=== PATIENT | female | born 1970 | race Caucasian/White ===

== ENCOUNTER 2016-12-25 19:46 | Emergency (ER) | payer BC ==
[2016-12-25 20:04] VITALS: BP 120/89
[2016-12-25] MEDS ORDERED: Orphenadrine 100 MG Tab.ER PO STA (20:27)
--- NOTE | 2016-12-25 20:30 | EDM.PDOC ---
ED HPI LOWER BACK PAIN/INJURY - General Chief Complaint: Back Pain or Injury Stated Complaint: LOWER BACK PAIN Time Seen by Provider: 12/25/16 20:00 Source of Information: Reports: Patient, RN notes reviewed History Limitations: Reports: No limitations - History of Present Illness INITIAL COMMENTS - FREE TEXT/NARRATIVE: The patient states that she developed lower back pain that radiates to her right buttock and down the lateral aspect of her right thigh, curving around to the anterior right thigh to her knee 3 or 4 days ago. She denies having any injury, but states that she has recently been traveling, and may have been sleeping on a bad bed. She states that she has some [place] left over from ACDF surgery 11/05/2016. The patient reports prior similar symptoms. She states a previous MRI showed that her "back is deteriorating". She is under the care of the Neurosurgeon who performed the ACDF, but she does not know if she requires a lower back surgery, as well. Reviewing the medical records, I see that the patient has been here numerous times in the past for similar complaints. Review of the [place] PMPi finds that the patient has had 67 prescriptions for controlled substances by 19 prescribers since 05/09/2014. Since her ACDF on 11/05/2016, she has received 670 tablets of [place], most recently prescribed 40 tablets 4 days ago, 12/21/2016. The [place] PMP[place] indicates that this was a 7 day supply, which therefore should have lasted her through 12/28/2016. - Related Data Allergies/ADRs: Allergies Allergy/AdvReac Type Severity Reaction Status Date / Time No Known Allergies Allergy Verified 12/25/16 20:05 Home Meds: Home Meds Lisinopril/Hydrochlorothiazide [Lisinopril-Hctz 10-12.5 mg Tab] 10 - 12.5 mg PO DAILY 06/06/16 [History] Flexirle 10 mg PO DAILY 12/25/16 [History] Omprezole 20 mg PO DAILY 12/25/16 [History] Orphenadrine [Norflex] 1 tab PO Q12H #20 tab.er 12/25/16 [Rx] Past Medical History Cardiovascular History: Reports: Hypertension Gastrointestinal History: Reports: GERD Musculoskeletal History: Reports: Back pain, chronic, Other (see below) ( Cervical disc disease) Neurological History: Reports: Headaches, chronic Endocrine/Metabolic History: Reports: Obesity/BMI 30+ - Past Surgical History HEENT Surgical History: Reports: Tonsillectomy GI Surgical History: Reports: Appendectomy, Cholecystectomy Other GI Surgeries/Procedures: "tummy tuck" Female Surgical History: Reports: Hysterectomy Musculoskeletal Surgical History: Reports: Arthroscopic knee, Arthroscopic procedure Other Musculoskeletal Surgeries/Procedures:: 3 SURGERIES ON RIGHT ANKLE Social & Family History - Tobacco Use Smoking Status *Q: Never Smoker Second Hand Smoke Exposure: No - Caffeine Use Caffeine Use: Reports: Soda Other Caffeine Use: mountain dew 3 cans daily - Alcohol Use Alcohol Use History: Yes Days Per Week of Alcohol Use: 0 Alcohol Use Frequency: Rarely - Recreational Drug Use Recreational Drug Use: No - Living Situation & Occupation Living situation: Reports: , with family (Daughter + granddaughter) 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[employer]) ED ROS GENERAL - Review of Systems Review Of Systems: See Below Constitutional: Reports: no symptoms HEENT: Reports: No symptoms Respiratory: Reports: No Symptoms Cardiovascular: Reports: No symptoms Endocrine: Reports: no symptoms GI/Abdominal: Reports: No symptoms : Reports: no symptoms Musculoskeletal: Reports: back pain (as per the HPI) Skin: Reports: no symptoms Neurological: Reports: No Symptoms Psychiatric: Reports: No symptoms Hematologic/Lymphatic: Reports: no symptoms Immunologic: Reports: no symptoms ED EXAM,LOWER BACK PAIN/INJURY - Physical Exam Exam: See Below Exam Limited By: No limitations General Appearance: alert, WD/WN, no apparent distress Eye Exam: bilateral eye: EOMI, normal inspection Ears: normal external exam, hearing grossly normal Nose: normal inspection, no blood Throat/Mouth: Normal inspection, Normal lips, Normal voice, No airway compromise Head: atraumatic, normocephalic Neck: normal inspection, full range of motion Respiratory/Chest: no respiratory distress, lungs clear, normal breath sounds, no accessory muscle use Cardiovascular: normal peripheral pulses, regular rate, rhythm, no gallop, no JVD, no murmur, no rub GI/Abdominal: normal bowel sounds, soft, non tender, no organomegaly, no distention, no abnormal bruit, no mass, other (Obese) Back Exam: normal inspection, full range of motion, other (No visible abnormality to the lumbo-sacral spine, such as swelling, erythema, ecchymosis, or abrasion. The patient reports severe tenderness to palpation of the lower lumbar and sacral spinous processes. Less tender to palpation of the paraspinous musculature. The patient also reports tenderness to palpation of the right buttock, lateral right hip, and anterior right thigh. Straight leg raise is negative to 90 on the left, 70 on the right. The patient is able to flex to 45, extend to 0. She is able to tilt to the right to 30, to the left to 30. She is able to twist to the left to 15, to the right to 10. Unilateral knee bend is normal bilaterally.) Extremities: normal inspection, normal range of motion, no pedal edema, normal capillary refill Neurological: alert, normal gait, no motor/sensory deficits, oriented x 3 Psychiatric: normal affect Skin Exam: Warm, Dry, Intact, Normal color, No rash Lymphatic: no adenopathy Course - Vital Signs Last Recorded V/S: Last Vital Signs Temp 36.8 C 12/25/16 20:02 Pulse 92 12/25/16 20:02 Resp 20 12/25/16 20:02 BP 120/89 12/25/16 20:02 Pulse Ox 100 12/25/16 20:02 - Orders/Labs/Meds Meds: Medications Discontinued Medications Generic Name Dose Route Start Last Admin Trade Name Freq PRN Reason Stop Dose Admin Orphenadrine Citrate 100 mg 12/25/16 20:27 12/25/16 20:33 Norflex PO 12/25/16 20:28 100 mg ONETIME STA Administration - Re-Assessments/Exams Free Text/Narrative Re-Assessment/Exam: 12/25/16 20:27 The patient presents with a complaint of lower back pain radiating to her right knee, for the past 3 or 4 days. On examination, however, the patient reports tenderness to palpation of the lumbar and sacral spinous processes, which would not be possible unless there were spinous process or ligamentous injury to the lower spine. Further, the patient is reporting tenderness to palpation of her right buttock and right thigh, which would also not be present with radicular pain. She is able to flex to only 45 when standing, but straight leg raise is negative to 70 on the right, which is not concordant. Her examination is therefore consistent with malingering. Further, as discussed above, the patient[place] indicates high frequency of opioid prescriptions, and use in excess of that prescribed. Collectively, it appears the patient is drug seeking. For today's purposes, I will switch the patient from Flexeril to Norflex, however, I am not going to prescribe any opioids. Departure - Departure Time of Disposition: 20:28 Disposition: Home, Self-Care 01 Condition: good Clinical Impression: Low back pain, Drug-seeking behavior Prescriptions: Orphenadrine [Norflex] 1 tab PO Q12H #20 tab.er Instructions: Back Pain, Adult, [id number] Referrals: Faith Rodriguez TOE PUNCHER [Primary Care Provider] - Forms: ED Department Discharge Additional Instructions: You were seen in the emergency room for recurrent low back pain, radiating to your right knee. You have been started on a muscle relaxant Norflex. Take one tablet every 12 hours, as prescribed. If you take Norflex, DO NOT also take Flexeril. Followup with your PCP, Karyn Rodriguez, at the next available appointment. If any other problems, please do not hesitate to return to the ER.
== END 2016-12-25 20:40 | disposition home or self-care (01) ==
LOC: JD.ED 19:46
DX: M54.5 Low back pain (principal); Z76.5 Malingerer [conscious simulation]; I10 Essential (primary) hypertension; K21.9 Gastro-esophageal reflux disease without esophagitis; E66.9 Obesity, unspecified; Z68.30 Body mass index [BMI] 30.0-30.9, adult; Z79.899 Other long term (current) drug therapy
CPT/HCPCS: 99283; A9270

== ENCOUNTER 2017-04-25 15:15 | Emergency (ER) | payer BC ==
[2017-04-25 15:29] VITALS: BP 117/88
--- NOTE | 2017-04-25 15:58 | EDM.PDOC ---
ED HPI GENERAL MEDICAL PROBLEM - General Chief Complaint: Lower Extremity Injury/Pain Stated Complaint: R LEG PAIN,LUMP Time Seen by Provider: 04/25/17 15:29 Source of Information: Reports: Patient History Limitations: Reports: No Limitations - History of Present Illness INITIAL COMMENTS - FREE TEXT/NARRATIVE: The patient presents with right leg pain. This has been getting worse over the past few days. 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 She is on a pain contract in [place]. She has chronic neck and back pain. She called the pain clinic and she was told to come here for help. Onset: Gradual Duration: Day(s): Location: Reports: Lower Extremity, Right (inner thigh) Quality: Reports: Sharp Severity: Severe Improves with: Reports: None Worsens with: Reports: None Associated Symptoms: Reports: Other (back pain) Right Leg Pain Score (Numeric/FACES): 8 - Related Data Allergies Allergy/AdvReac Type Severity Reaction Status Date / Time No Known Allergies Allergy Verified 04/25/17 15:29 Home Meds: Home Meds Lisinopril/Hydrochlorothiazide [Lisinopril-Hctz 10-12.5 mg Tab] 10 - 12.5 mg PO DAILY 06/06/16 [History] Omprezole 20 mg PO DAILY 12/25/16 [History] oxyCODONE HCl/Acetaminophen [Percocet 5-325 mg Tablet] 1 - 2 each PO Q6HR PRN # 15 tablet 04/25/17 [Rx] Past Medical History Cardiovascular History: Reports: Hypertension Respiratory History: Reports: None Gastrointestinal History: Reports: GERD Genitourinary History: Reports: None 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 Musculoskeletal History: Reports: Back Pain, Chronic, Other (See Below) Other Musculoskeletal History: "TUMMY TUCK" 4 YEARS AGO Neurological History: Reports: Headaches, Chronic Psychiatric History: Reports: None Endocrine/Metabolic History: Reports: Obesity/BMI 30+ Oncologic (Cancer) History: Reports: None Dermatologic History: Reports: Other (See Below) Other Dermatologic History: lipoma - Infectious Disease History Infectious Disease History: Reports: None - Past Surgical History HEENT Surgical History: Reports: Tonsillectomy GI Surgical History: Reports: Appendectomy, Cholecystectomy, Other (See Below) Other GI Surgeries/Procedures: "tummy tuck" Female Surgical History: Reports: Hysterectomy Musculoskeletal Surgical History: Reports: Arthroscopic Knee, Arthroscopic Procedure, Other (See Below) Other Musculoskeletal Surgeries/Procedures:: cervical fusion Social & Family History - Tobacco Use Smoking Status *Q: Never Smoker Years of Tobacco use: 20 Packs/Tins Daily: 0.3 Second Hand Smoke Exposure: No - Caffeine Use Caffeine Use: Reports: Soda Other Caffeine Use: mountain dew 3 cans daily - Alcohol Use Days Per Week of Alcohol Use: 0 - Recreational Drug Use Recreational Drug Use: No - Living Situation & Occupation Living situation: Reports: , with Family Occupation: Employed Review of Systems - Review of Systems Review Of Systems: See Below Constitutional: Reports: No Symptoms Eyes: Reports: No Symptoms Ears: Reports: No Symptoms Nose: Reports: No Symptoms Mouth/Throat: Reports: No Symptoms Respiratory: Reports: No Symptoms Cardiovascular: Reports: No Symptoms GI/Abdominal: Reports: No Symptoms Genitourinary: Reports: No Symptoms Musculoskeletal: Reports: Other (Right leg pain) ED EXAM, GENERAL - Physical Exam Exam: See Below Exam Limited By: No Limitations General Appearance: Alert, No Apparent Distress Ears: Normal External Exam Nose: Normal Inspection Head: Atraumatic, Normocephalic Neck: Normal Inspection Respiratory/Chest: No Respiratory Distress, Lungs Clear, Normal Breath Sounds Cardiovascular: Regular Rate, Rhythm, No Edema, No Murmur GI/Abdominal: Soft, Non-Tender, No Organomegaly, No Mass Back Exam: Normal Inspection Extremities: Normal Inspection Neurological: Alert, Oriented, No Motor/Sensory Deficits Course - Vital Signs Last Recorded V/S: Last Vital Signs Temp 96.9 F 04/25/17 15:26 Pulse 92 04/25/17 15:26 Resp 18 04/25/17 15:26 BP 117/88 04/25/17 15:26 Pulse Ox 98 04/25/17 15:26 Departure - Departure Time of Disposition: 16:00 Disposition: Home, Self-Care 01 Condition: Good Clinical Impression: Right leg pain - Discharge Information Prescriptions: oxyCODONE HCl/Acetaminophen [Percocet 5-325 mg Tablet] 1 - 2 each PO Q6HR PRN # 15 tablet PRN Reason: Pain Referrals: Faith Rodriguez SOCIAL INSURANCE ADMINISTRATOR [Primary Care Provider] - Forms: ED Department Discharge Additional Instructions: Take your medications as prescribed. Please return if you are worse.
== END 2017-04-25 16:29 | disposition home or self-care (01) ==
LOC: JD.ED 15:15
DX: M79.604 Pain in right leg (principal); I10 Essential (primary) hypertension; K21.9 Gastro-esophageal reflux disease without esophagitis; E66.9 Obesity, unspecified; Z79.899 Other long term (current) drug therapy; Z98.890 Other specified postprocedural states; Z90.49 Acquired absence of other specified parts of digestive tract; Z90.710 Acquired absence of both cervix and uterus; Z68.30 Body mass index [BMI] 30.0-30.9, adult
CPT/HCPCS: 99283; 99284

== ENCOUNTER 2017-08-28 15:17 | Emergency (ER) | payer BC ==
[2017-08-28 15:41] VITALS: BP 135/101
[2017-08-28] MEDS ORDERED: SUMAtriptan 6 MG/0.5 ML SDV SUBCUT ONE (15:55)
[2017-08-28] MEDS ORDERED: SUMAtriptan 50 MG Tab PO ONE (16:07)
--- NOTE | 2017-08-28 16:07 | EDM.PDOC ---
ED HPI GENERAL MEDICAL PROBLEM - General Chief Complaint: Headache Stated Complaint: HEAD PAIN Time Seen by Provider: 08/28/17 15:43 Source of Information: Reports: Patient History Limitations: Reports: No Limitations - History of Present Illness INITIAL COMMENTS - FREE TEXT/NARRATIVE: Patient is a 47-year-old female with a history of migraines and chronic pain to her neck and back. States she developed a migraine headache yesterday consistent with previous episodes of migraines. Gradual onset, retro-orbital, throbbing sensation, with photophobia. She has tried Tylenol and ibuprofen with minimal relief. States normally she takes Imitrex 100 mg with onset but is out of his medications for the past week. She states the migraines are as a result of chronic neck pain. Patient is under a pain contract with a provider in [place]. She ran out of the oxycodone and OxyContin prescriptions today will not have them refilled until Tuesday. She denies any fever/chills, vision changes, numbness or tingling, difficulty walking, weakness to the upper or lower extremities, sensory deficits, nausea vomiting, chest pain or shortness of breath. She also denies any dysuria. Headache Pain Score (Numeric/FACES): 9 - Related Data Allergies Allergy/AdvReac Type Severity Reaction Status Date / Time latex Allergy Hives Verified 08/28/17 15:36 Home Meds: Home Meds Omprezole 20 mg PO DAILY 12/25/16 [History] oxyCODONE HCl/Acetaminophen [Percocet 5-325 mg Tablet] 1 - 2 each PO Q6HR PRN # 15 tablet 04/25/17 [Rx] Metformin. 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 Musculoskeletal History: Reports: Back Pain, Chronic, Other (See Below) Other Musculoskeletal History: "TUMMY TUCK" 4 YEARS AGO Neurological History: Reports: Headaches, Chronic Psychiatric History: Reports: None Endocrine/Metabolic History: Reports: Obesity/BMI 30+ Oncologic (Cancer) History: Reports: None Dermatologic History: Reports: Other (See Below) Other Dermatologic History: lipoma - Infectious Disease History Infectious Disease History: Reports: None - Past Surgical History HEENT Surgical History: Reports: Tonsillectomy GI Surgical History: Reports: Appendectomy, Cholecystectomy, Other (See Below) Other GI Surgeries/Procedures: "tummy tuck" Female Surgical History: Reports: Hysterectomy Musculoskeletal Surgical History: Reports: Arthroscopic Knee, Arthroscopic Procedure, Other (See Below) Other Musculoskeletal Surgeries/Procedures:: cervical fusion Social & Family History - Tobacco Use Smoking Status *Q: Never Smoker Years of Tobacco use: 20 Packs/Tins Daily: 0.3 Second Hand Smoke Exposure: No - Caffeine Use Caffeine Use: Reports: Soda Other Caffeine Use: mountain dew 3 cans daily - Alcohol Use Days Per Week of Alcohol Use: 0 - Recreational Drug Use Recreational Drug Use: No - Living Situation & Occupation Living situation: Reports: , with Family Occupation: Employed ED ROS GENERAL - Review of Systems Review Of Systems: See Below Constitutional: Denies: Fever, Chills, Decreased Appetite HEENT: Denies: Vision Change Respiratory: Reports: No Symptoms Cardiovascular: Reports: No Symptoms GI/Abdominal: Reports: No Symptoms Musculoskeletal: Reports: Neck Pain (Chronic unchanged), Back Pain (Chronic unchanged) Neurological: Reports: Headache. Denies: Dizziness, Numbness, Tingling, Difficulty Walking, Weakness - Physical Exam Exam: See Below Exam Limited By: No Limitations General Appearance: Alert, WD/WN, No Apparent Distress (She is sitting in a dark room.) Eye Exam: Bilateral Eye: EOMI, PERRL Ears: Hearing Grossly Normal Nose: Normal Inspection Throat/Mouth: Normal Inspection, Normal Oropharynx, Normal Voice, No Airway Compromise Head Exam: Atraumatic, Normocephalic Neck: Normal Inspection, Supple, Non-Tender (With palpation), Full Range of Motion. No: Lymphadenopathy (L), Lymphadenopathy (R) Respiratory/Chest: No Respiratory Distress, Lungs Clear, Normal Breath Sounds, No Accessory Muscle Use, Chest Non-Tender Cardiovascular: Normal Peripheral Pulses, Regular Rate, Rhythm Neuro Exam (Abbreviated): Alert, Oriented, CN II-XII Intact, Normal Cognition, No Motor/Sensory Deficits, Other (Cerebellar function intact: Finger-nose, rapid alternating movements, no sensory/motor deficits. No pronator drift, facial droop, slurred speech, or any concerning findings.) Psychiatric: Normal Affect, Normal Mood Skin Exam: Warm, Dry, Intact, Normal Color, No Rash Course - Vital Signs Last Recorded V/S: Last Vital Signs Temp 97.2 F 08/28/17 15:38 Pulse 81 08/28/17 15:38 Resp BP 135/101 H 08/28/17 15:38 Pulse Ox 98 08/28/17 15:38 - Orders/Labs/Meds Meds: Medications Discontinued Medications Generic Name Dose Route Start Last Admin Trade Name Freq PRN Reason Stop Dose Admin Sumatriptan Succinate 6 mg 08/28/17 15:55 08/28/17 16:23 Imitrex SUBCUT 08/28/17 15:56 Not Given ONETIME ONE Sumatriptan Succinate 100 mg 08/28/17 16:07 08/28/17 16:23 Imitrex PO 08/28/17 16:08 100 mg ONETIME ONE Administration - Re-Assessments/Exams Free Text/Narrative Re-Assessment/Exam: Ordered Imitrex 6 mg subcutaneous. I did this rather than by mouth form since this should take effect quicker. 08/28/17 16:10 Patient refuses subcutaneous injection. Ordered Imitrex 100 mg by mouth. Per nursing staff headache is better. Will discharge home. Departure - Departure Time of Disposition: 16:51 Disposition: Home, Self-Care 01 Condition: Good Clinical Impression: Migraine - Discharge Information Prescriptions: SUMAtriptan Succinate [Imitrex] 100 mg PO ASDIRECTED PRN #15 tablet PRN Reason: Headache Instructions: Migraine Headache, [id number] Referrals: Faith Rodriguez NP [Primary Care Provider] - Forms: ED Department Discharge Additional Instructions: Take the Imitrex as prescribed. Push the fluids. Suggest utilizing warm compresses or ice the back her neck or head to alleviate some of the discomfort. Follow-up with your primary care provider as needed for reevaluation and further pain management. Return to ED if he developed fever, vision changes, rash, chest pain, focal neurological deficits, seizures, worsening headache, or any additional complaints.
== END 2017-08-28 17:15 | disposition home or self-care (01) ==
LOC: JD.ED 15:17
DX: G43.909 Migraine, unspecified, not intractable, without status migrainosus (principal); I10 Essential (primary) hypertension; Z91.040 Latex allergy status; Z79.899 Other long term (current) drug therapy; Z79.84 Long term (current) use of oral hypoglycemic drugs
CPT/HCPCS: 99284; A9270; 99283

== ENCOUNTER 2017-12-03 18:12 | Emergency (ER) | payer BC ==
[2017-12-03 18:42] VITALS: BP 128/103
[2017-12-03] MEDS ORDERED: Ketorolac 60 MG/2 ML SDV IM ONE (19:02)
--- NOTE | 2017-12-03 19:08 | EDM.PDOC ---
ED HPI GENERAL MEDICAL PROBLEM - General Chief Complaint: Back Pain or Injury Stated Complaint: NECK AND BACK PAIN Time Seen by Provider: 12/03/17 18:50 Source of Information: Reports: Patient, Old Records History Limitations: Reports: No Limitations - History of Present Illness INITIAL COMMENTS - FREE TEXT/NARRATIVE: The patient states that she has chronic back issues, including degenerative disc disease and cysts on her back, for years. She states that she is under the care of Karyn Rodriguez, who prescribes for her Percocet 10/325, one tablet every 4 hours. She states that she ran out of her Percocet yesterday, 12/02/2017 , and was due to pickup a refill prescription at the [facility] location yesterday, but that she forgot, leaving her without a prescription until 12/05/2017. She is requesting pain relief until then. While the patient has chronic back issues, she denies any recent injury. She denies any recent illnesses, including nausea, vomiting, constipation, diarrhea , abdominal pain, recent weight gain or weight loss, bloody bowel movements, black bowel movements, joint aches, headaches, rashes, or urinary issues. Lower Back Pain Score (Numeric/FACES): 9 - Related Data Allergies Allergy/AdvReac Type Severity Reaction Status Date / Time latex Allergy Hives Verified 08/28/17 15:36 Home Meds: Home Meds Omprezole 20 mg PO DAILY 12/25/16 [History] Metformin. 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: Psychiatric History: Reports: Addiction (Opioids) - Past Surgical History HEENT Surgical History: Reports: Tonsillectomy GI Surgical History: Reports: Appendectomy, Cholecystectomy, Other (See Below) ( Abdominoplasty) Female Surgical History: Reports: Section (x 1), Hysterectomy, Salpingo-Oophorectomy Neurological Surgical History: Reports: C-Spine (ACDF) Musculoskeletal Surgical History: Reports: Arthroscopic Knee (right), Other ( See Below) (Right ankle repair x 3) Social & Family History - Tobacco Use Smoking Status *Q: Former Smoker Years of Tobacco use: 20 Packs/Tins Daily: 0.3 Second Hand Smoke Exposure: No - Caffeine Use Caffeine Use: Reports: Soda Other Caffeine Use: mountain dew 3 cans daily - Alcohol Use Alcohol Use History: No Days Per Week of Alcohol Use: 0 - Recreational Drug Use Recreational Drug Use: Yes Drug Use in Last 12 Months: Yes Recreational Drug Type: Reports: Other (see below) (Prescription opioids) - Living Situation & Occupation Living situation: Reports: , with Family Occupation: Unemployed ED ROS GENERAL - Review of Systems Review Of Systems: ROS reveals no pertinent complaints other than HPI. ED EXAM,LOWER BACK PAIN/INJURY - Physical Exam Exam: See Below Exam Limited By: No Limitations General Appearance: Alert, WD/WN, No Apparent Distress Eye Exam: Bilateral Eye: Normal Inspection Ears: Normal External Exam, Hearing Grossly Normal Nose: Normal Inspection, No Blood Throat/Mouth: Normal Inspection, Normal Lips, Normal Voice, No Airway Compromise Head: Atraumatic, Normocephalic Neck: Normal Inspection, Full Range of Motion Respiratory/Chest: No Respiratory Distress, Lungs Clear, Normal Breath Sounds, No Accessory Muscle Use Cardiovascular: Normal Peripheral Pulses, Regular Rate, Rhythm, No Gallop, No JVD, No Murmur, No Rub GI/Abdominal: Normal Bowel Sounds, Soft, Non-Tender, No Organomegaly, No Distention, No Abnormal Bruit, No Mass (Female) Exam: Deferred Rectal (Female) Exam: Deferred Back Exam: Normal Inspection Extremities: Normal Inspection, Normal Range of Motion, Normal Capillary Refill Neurological: Alert, No Motor/Sensory Deficits, Oriented x 3 Psychiatric: Flat Affect Skin Exam: Warm, Dry, Intact, Normal Color, No Rash Course - Vital Signs Last Recorded V/S: Last Vital Signs Temp 36.1 C 12/03/17 18:39 Pulse 98 12/03/17 18:39 Resp 20 12/03/17 18:39 BP 128/103 H 12/03/17 18:39 Pulse Ox 100 12/03/17 18:39 - Orders/Labs/Meds Meds: Medications Discontinued Medications Generic Name Dose Route Start Last Admin Trade Name Demetra PRN Reason Stop Dose Admin Ketorolac Tromethamine 60 mg 12/03/17 19:02 12/03/17 19:12 Toradol IM 12/03/17 19:03 60 mg ONETIME ONE Administration - Re-Assessments/Exams Free Text/Narrative Re-Assessment/Exam: 12/03/17 19:03 The patient states that she ran out of her Percocet yesterday, 12/02/2017, and is requesting pain management until she can refill her prescription on Tuesday, . I explained that the emergency department does not refill medications in general, and, in particular, does not manage chronic pain. I offered the patient Tylenol, ibuprofen, or an injection of Toradol, but explained that we cannot give opioids. The patient accepted an injection of Toradol. Review of the [place] PMPi finds that the patient has 110 prescriptions for controlled substances, the vast majority of which have been for OxyContin or Percocet, by 22 prescribers, filled at 7 pharmacies. In particular, her last prescription for Percocet was filled on 11/21/2017, 84 tablets, intended to last her 14 days, through 12/05/2017, but that she also filled a prescription 2 days later, on 11/23/2017, for OxyContin 15 mg, 56 tablets, a 28 day prescription intended to last her through 12/21/2017. Both of these prescriptions , indeed, all prescriptions for opioids written since 01/25/2017, were written by RONALDO Murillo, from [place]. 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 I returned to the patient's room to confront her about this. The patient then changed her story, stating that she did not suggest that it was Karyn Rodriguez who had prescribed her Percocet. The problem is that her initial story was witnessed not only by myself, but also by Rhona HARRELL and Marissa HARRELL, who were both present in the room when I originally interviewed the patient. The patient stated that, yes, she had been prescribed Percocet by Ms. Felton, and that was the prescription ran of 12/02/2017. As above, it should have run out 12/05/2017, indicating that she took her Percocet in excess of that which was prescribed. She acknowledged that she had been prescribed OxyContin, but stated that it did not agree with her. I suspect that the patient ran out of her Percocet early, and that she cannot get a refill until 12/05/2017. I believe she is lying when she stated that she could have refilled the prescription on Tuesday - even if she had forgotten on Tuesday, the pharmacy was open from 8 AM until 1 PM today. It is possible that the patient does not like OxyContin, although I see that she has been prescribed it in the past. Nevertheless, if the patient is under the care of pain management, she is not permitted to go to the ED for additional pain medications. Clearly, the patient is drug-seeking. I strongly recommended that she seek professional help, and I will refer her to the Substance Abuse and Mental [facility] Services Administration ([facility]), who can help her find a substance abuse counselor. Departure - Departure Time of Disposition: 19:05 Disposition: Home, Self-Care 01 Condition: Good Clinical Impression: Drug-seeking behavior - Discharge Information Referrals: Faith Rodriguez BI ARCHITECT [Primary Care Provider] - Forms: ED Department Discharge Additional Instructions: You were seen in the emergency room requesting pain medication after running out of your Percocet yesterday. Review of the controlled substances databank finds that you had a prescription for 56 OxyContin, a 28 day supply, filled just 10 days ago, on 11/23/2017, and 84 tablets of Percocet 10/325 filled just 2 days prior to that, on 11/21/2017. As discussed, we are very concerned about your opioid usage, and recommend that you seek professional help. Call the Substance Abuse and Mental Health Services Administration ([facility]) at [phone] ([phone]). If any other problems, please do not hesitate to return to the ER.
== END 2017-12-03 19:33 | disposition home or self-care (01) ==
LOC: JD.ED 18:12
DX: Z76.5 Malingerer [conscious simulation] (principal); M54.5 Low back pain; G89.29 Other chronic pain; I10 Essential (primary) hypertension; K21.9 Gastro-esophageal reflux disease without esophagitis; Z91.040 Latex allergy status; Z79.84 Long term (current) use of oral hypoglycemic drugs; Z79.899 Other long term (current) drug therapy; Z90.49 Acquired absence of other specified parts of digestive tract; Z87.891 Personal history of nicotine dependence
CPT/HCPCS: 96372; 99283; J1885

== ENCOUNTER 2019-02-04 20:32 | Emergency (ER) | payer OTHER ==
[2019-02-04 20:44] VITALS: BP 149/119
[2019-02-04] MEDS ORDERED: Ketorolac 60 MG/2 ML SDV IM ONE (21:18)
--- NOTE | 2019-02-04 21:41 | EDM.PDOC ---
ED HPI GENERAL MEDICAL PROBLEM - General Chief Complaint: Back Pain or Injury Stated Complaint: FELL ON BACK AND NECK IN PAIN Time Seen by Provider: 02/04/19 21:00 Source of Information: Reports: Patient History Limitations: Reports: No Limitations - History of Present Illness INITIAL COMMENTS - FREE TEXT/NARRATIVE: 49-year-old female presents for evaluation and treatment of low back and neck pain. Patient reports that she fell on Tuesday. She states that she was helping her parents move and was carrying boxes. She states she was walking up one step when she fell backwards and landed on buttocks. Since then she has been experiencing pain in the lower back as well as her neck. she denies any numbness or tingling in the legs. She states that she is having some tingling in her bilateral hands but this has been going on for quite some time prior to the fall. No urinary or stool incontinence. She has a history of chronic pain to her low back and neck. Previously in pain management for this, but has not been in pain management since August. States that she was living in [place] but just relocated back to [place] few weeks ago. She has a history of surgery to her neck, fusion of C5 and C6. 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: Other CINNAMON GRINDER History: X 1 Musculoskeletal History: Reports: Back Pain, Chronic Other Musculoskeletal History: "TUMMY TUCK" 4 YEARS AGO Neurological History: Reports: Headaches, Chronic Psychiatric History: Reports: Addiction Endocrine/Metabolic History: Reports: Obesity/BMI 30+ Oncologic (Cancer) History: Reports: None Dermatologic History: Reports: Other (See Below) Other Dermatologic History: lipoma - Infectious Disease History Infectious Disease History: Reports: None - Past Surgical History HEENT Surgical History: Reports: Tonsillectomy GI Surgical History: Reports: Appendectomy, Cholecystectomy, Other (See Below) Female Surgical History: Reports: Section, Hysterectomy, Salpingo- Oophorectomy Neurological Surgical History: Reports: C-Spine Musculoskeletal Surgical History: Reports: Arthroscopic Knee, Other (See Below) Social & Family History - Tobacco Use Smoking Status *Q: Never Smoker - Caffeine Use Caffeine Use: Reports: Coffee Other Caffeine Use: mountain dew 3 cans daily - Recreational Drug Use Recreational Drug Use: No - Living Situation & Occupation Living situation: Reports: , with Family Occupation: Unemployed ED ROS GENERAL - Review of Systems Review Of Systems: See Below : Denies: Incontinence Musculoskeletal: Reports: Neck Pain, Back Pain (low back ) Neurological: Denies: Numbness (bilateral hands, chronic), Tingling (bilateral hands, chronic) ED EXAM,LOWER BACK PAIN/INJURY - Physical Exam Exam: See Below Exam Limited By: No Limitations General Appearance: Alert, WD/WN, No Apparent Distress Respiratory/Chest: No Respiratory Distress, Lungs Clear, Normal Breath Sounds Cardiovascular: Normal Peripheral Pulses, Regular Rate, Rhythm, No Murmur Back Exam: Normal Inspection, Paraspinal Tenderness (SI joint and paraspinal mucsles L2-L5), Vertebral Tenderness (L2-5). No: CVA Tenderness (L), CVA Tenderness (R) Extremities: Normal Inspection, Normal Range of Motion Neurological: Alert, Normal Mood/Affect, Normal Dorsiflexion, Normal Plantar Flexion, Normal Gait. No: Straight Leg Raise (L), Straight Leg Raise (R), Difficulty Walking Psychiatric: Normal Affect, Normal Mood Skin Exam: Warm, Dry, Normal Color. No: Ecchymosis, Erythema, Increased Warmth Course - Vital Signs Last Recorded V/S: Last Vital Signs Temp 97.4 F 02/04/19 20:40 Pulse 100 02/04/19 20:40 Resp 18 02/04/19 20:40 BP 149/119 H 02/04/19 20:40 Pulse Ox 100 02/04/19 20:40 - Orders/Labs/Meds Meds: Medications Discontinued Medications Generic Name Dose Route Start Last Admin Trade Name Freq PRN Reason Stop Dose Admin Ketorolac Tromethamine 60 mg 02/04/19 21:18 02/04/19 21:36 Toradol IM 02/04/19 21:19 Not Given ONETIME ONE - Radiology Interpretation Free Text/Narrative:: Xray of the cervical spine shows no acute fractures. hardware in place. No acute injury Xray of the lumbar spine shows some mild degenerative change and endplate spurring. No acute fracture. Formal radiology read pending. - Re-Assessments/Exams Free Text/Narrative Re-Assessment/Exam: 02/04/19 22:00 Patient searched on the [place] drug registry. 106 prescriptions for controlled substances in the last year from 27 different prescribers. This search included [place]. Reviewed the xray results with the patient. Encouraged her tp continue with OTC treatments and may take the tramadol she has at home. Will discharge home at thie time. Discharge instructions as documented. Departure - Departure Time of Disposition: 22:09 Disposition: Home, Self-Care 01 Condition: Fair Clinical Impression: Back pain Fall Qualifiers: Encounter type: initial encounter Qualified Code(s): W19.XXXA - Unspecified fall, initial encounter - Discharge Information *PRESCRIPTION DRUG MONITORING PROGRAM REVIEWED*: No *COPY OF PRESCRIPTION DRUG MONITORING REPORT IN PATIENT DAXA: No Instructions: Acute Back Pain, Adult Referrals: PCP,None [Primary Care Provider] - Forms: ED Department Discharge Additional Instructions: may take [id number] Tylenol, Motrin as needed for pain. Continues ice and heat as needed for additional pain relief. Expect your symptoms last about 1 week. Normally the first 2 days are the worst. If you continue your pain beyond one week follow-up with family medicine. Physician ER if your symptoms change or worsen.
--- NOTE | 2019-02-05 07:27 | CR ---
Cervical spine: AP, lateral and odontoid views of the cervical spine were obtained. Comparison: No prior cervical spine imaging. Previous surgery is noted at C5-C6 and C6-C7 with anterior plate and screws and intact bone graft. Minimal anterior spurring and anterior spurring at C4-C5. Other discs are maintained. Vertebral body heights are maintained. Prevertebral soft tissues are normal. No subluxation or fracture seen. Impression: 1. Previous surgery at C5-C6 and C6-C7. 2. Minimal degenerative spurring at C4-C5. 3. Nothing acute is appreciated. Diagnostic code #2
--- NOTE | 2019-02-05 07:27 | CR ---
Lumbar spine: AP, lateral and coned-down lateral views centered to the lumbosacral junction were obtained. Comparison: No previous lumbar spine study. Mild disc space narrowing is noted at L1-L2. Other disc spaces are maintained. Vertebral body heights are maintained. Scattered endplate osteophytes are seen. Minimal vascular calcification is seen. Pedicles are intact. Visualized transverse and spinous processes are intact. Sacroiliac joints are within normal limits. No subluxation or fracture is seen. Impression: 1. Mild degenerative change as noted above. Nothing acute is appreciated. Diagnostic code #2
== END 2019-02-04 22:26 | disposition home or self-care (01) ==
LOC: JD.ED 20:32
DX: M54.5 Low back pain (principal); M54.2 Cervicalgia; I10 Essential (primary) hypertension; K21.9 Gastro-esophageal reflux disease without esophagitis; Z91.040 Latex allergy status; W18.39XA Other fall on same level, initial encounter
CPT/HCPCS: 72040; 72040-26; 72100; 72100-26; 99283; 99283-25

== ENCOUNTER 2019-03-10 17:10 | Emergency (ER) | payer OTHER ==
[2019-03-10 17:28] VITALS: BP 167/115
[2019-03-10] MEDS ORDERED: Acetaminophen 325 MG Tab PO ONE (17:47)
--- NOTE | 2019-03-10 17:54 | EDM.PDOC ---
ED HPI GENERAL MEDICAL PROBLEM - General Chief Complaint: Lower Extremity Injury/Pain Stated Complaint: RIGHT FOOT/TOE INJURY Time Seen by Provider: 03/10/19 17:32 Source of Information: Reports: Patient, RN Notes Reviewed History Limitations: Reports: No Limitations - History of Present Illness INITIAL COMMENTS - FREE TEXT/NARRATIVE: Patient is a 49-year-old female who presents to the ED for evaluation of a right toe/foot injury. The patient states that shortly prior to arrival she was reaching for something in her closet on the top shelf when this very large metal canister fell from the top shelf onto her right great toe joint while she was barefoot. The patient complains of immediate pain to the toe and right foot. She states she is unable to bear much weight on the right foot at all. She did not take any pain medications prior to arrival, nor did she ice this. She states that the pain is a 10 out of 10 today, and this does have some tingling associated into the right foot. She states that the pain is so bad that is making her sick to her stomach. Right Toe-Hailux Pain Score (Numeric/FACES): 10 - Related Data Allergies Allergy/AdvReac Type Severity Reaction Status Date / Time ketorolac [From Toradol] Allergy Headache Verified 03/10/19 17:29 latex Allergy Hives Verified 03/10/19 17:28 tramadol Allergy Headache Verified 03/10/19 17:29 ibuprofen AdvReac Abdominal Verified 03/10/19 17:29 Pain Home Meds: Home Meds Phentermine HCl 37.5 mg PO BID 08/28/17 [History] SUMAtriptan Succinate [Imitrex] 100 mg PO ASDIRECTED PRN #15 tablet 08/28/17 [Rx ] Past Medical History Cardiovascular History: Reports: Hypertension Respiratory History: Reports: None Gastrointestinal History: Reports: GERD Genitourinary History: Reports: None RELATIONS DIRECTOR History: Reports: Other RELATIONS DIRECTOR History: X 1 Musculoskeletal History: Reports: Back Pain, Chronic Other Musculoskeletal History: "TUMMY TUCK" 4 YEARS AGO Neurological History: Reports: Headaches, Chronic Psychiatric History: Reports: Addiction Endocrine/Metabolic History: Reports: Obesity/BMI 30+ Oncologic (Cancer) History: Reports: None Dermatologic History: Reports: Other (See Below) Other Dermatologic History: lipoma - Infectious Disease History Infectious Disease History: Reports: None - Past Surgical History HEENT Surgical History: Reports: Tonsillectomy GI Surgical History: Reports: Appendectomy, Cholecystectomy, Other (See Below) Female Surgical History: Reports: Section, Hysterectomy, Salpingo- Oophorectomy Neurological Surgical History: Reports: C-Spine Musculoskeletal Surgical History: Reports: Arthroscopic Knee, Other (See Below) Social & Family History - Caffeine Use Caffeine Use: Reports: Coffee Other Caffeine Use: mountain dew 3 cans daily - Living Situation & Occupation Living situation: Reports: , with Family Occupation: Unemployed Review of Systems - Review of Systems Review Of Systems: See Below Constitutional: Reports: No Symptoms Eyes: Reports: No Symptoms Ears: Reports: No Symptoms Nose: Reports: No Symptoms Mouth/Throat: Reports: No Symptoms Respiratory: Reports: No Symptoms Cardiovascular: Reports: No Symptoms GI/Abdominal: Reports: No Symptoms Genitourinary: Reports: No Symptoms Musculoskeletal: Reports: Joint Pain (R great toe/foot) Skin: Reports: Bruising (small bruise note to R Great toe joint) Neurological: Reports: No Symptoms Psychiatric: Reports: No Symptoms ED EXAM, GENERAL - Physical Exam Exam: See Below Exam Limited By: No Limitations General Appearance: Alert, WD/WN, No Apparent Distress Respiratory/Chest: No Respiratory Distress, Lungs Clear, Normal Breath Sounds, No Accessory Muscle Use, Chest Non-Tender Cardiovascular: Normal Peripheral Pulses, Regular Rate, Rhythm, No Murmur Extremities: Normal Inspection, Normal Capillary Refill, Limited Range of Motion (of R great toe d/t pain. The patient was barely able to let me touch her toe with very light touch without her experiencing immense pain.) Neurological: Alert, Oriented, Normal Cognition, No Motor/Sensory Deficits Psychiatric: Normal Affect, Normal Mood, Other (pt is being somewhat dramatic and her pain is out of proportion to her exam.) Skin Exam: Warm, Dry, Intact, Normal Color, No Rash Course - Vital Signs Last Recorded V/S: Last Vital Signs Temp 97.8 F 03/10/19 17:25 Pulse 114 H 03/10/19 17:25 Resp 16 03/10/19 17:25 BP 167/115 H 03/10/19 17:25 Pulse Ox 99 03/10/19 17:25 - Orders/Labs/Meds Orders: Active Orders 24 hr Category Date Time Status Foot Comp Min 3V Rt [CR] Stat Exams 03/10/19 17:46 Ordered Meds: Medications Discontinued Medications Generic Name Dose Route Start Last Admin Trade Name Demetra PRN Reason Stop Dose Admin Acetaminophen 650 mg 03/10/19 17:47 03/10/19 18:01 Tylenol PO 03/10/19 17:48 650 mg NOW ONE Administration - Radiology Interpretation Free Text/Narrative:: Vrad did read the patient's foot x-ray, and does not identify any sort of acute fracture in the patient's right foot or right toe. - Re-Assessments/Exams Free Text/Narrative Re-Assessment/Exam: 03/10/19 17:54 Patient resents to the ED for evaluation of a right great toe/foot injury.I have ordered a right foot x-ray as this will be able to image the foot and joint in question. I did order 650 mg PO Tylenol for initial pain relief. Will have the nurse apply an ice pack until x-ray is done and read Departure - Departure Time of Disposition: 18:55 Disposition: Home, Self-Care 01 Condition: Fair Clinical Impression: Toe pain, right - Discharge Information *PRESCRIPTION DRUG MONITORING PROGRAM REVIEWED*: No *COPY OF PRESCRIPTION DRUG MONITORING REPORT IN PATIENT DAXA: No Instructions: Musculoskeletal Pain Referrals: PCP,None [Primary Care Provider] - Forms: ED Department Discharge Additional Instructions: You have been evaluated in the ED for your right toe pain. Your x-ray demonstrated no acute fracture of your right toe or foot. Please use ice as tolerated to the affected area. You may take Tylenol 500 mg or q6 hrs for pain relief. Please do so until you have a tolerable level of pain with activity. Do not exceed 4000mg Tylenol in a 24 hour time period. Please return to ED if your symptoms should change or worsen. - My Orders Last 24 Hours: My Active Orders 03/10/19 17:46 Foot Comp Min 3V Rt [CR] Stat - Assessment/Plan Last 24 Hours: My Active Orders 03/10/19 17:46 Foot Comp Min 3V Rt [CR] Stat
--- NOTE | 2019-03-12 11:07 | CR ---
Right foot: Four views of the right foot were obtained. Comparison: No previous study. Plantar spur is noted. Joint spaces are preserved. No fracture or dislocation is seen. Orthopedic screw is noted within the distal fibular shaft. Bone densities are noted off the lateral malleolus compatible with old injury. Impression: 1. Findings which are believed to be incidental as described above. 2. Nothing acute is appreciated. Diagnostic code #2 I agree with preliminary report from [facility], finalized on 03/11/19, 1:13 AM Central Time
== END 2019-03-10 19:21 | disposition home or self-care (01) ==
LOC: JD.ED 17:10
DX: M79.674 Pain in right toe(s) (principal); I10 Essential (primary) hypertension; Z88.5 Allergy status to narcotic agent; Z88.6 Allergy status to analgesic agent; Z91.040 Latex allergy status; E66.9 Obesity, unspecified; Z98.890 Other specified postprocedural states; Z90.710 Acquired absence of both cervix and uterus; Z90.49 Acquired absence of other specified parts of digestive tract; W20.8XXA Other cause of strike by thrown, projected or falling object, initial encounter
CPT/HCPCS: 73630; 99283; A9270; 99282

== ENCOUNTER 2019-05-31 00:18 | Emergency (ER) | payer SELFPAY ==
[2019-05-31 00:36] VITALS: BP 141/109; PULSE 100
[2019-05-31] MEDS ORDERED: Acetaminophen/oxyCODONE 325-5 MG Tab PO ONE (01:36)
--- NOTE | 2019-05-31 01:40 | EDM.PDOC ---
ED HPI GENERAL MEDICAL PROBLEM - General Chief Complaint: Back Pain or Injury Stated Complaint: TAIL BONE PAIN Time Seen by Provider: 05/31/19 01:25 Source of Information: Reports: Patient History Limitations: Reports: No Limitations - History of Present Illness INITIAL COMMENTS - FREE TEXT/NARRATIVE: 49-year-old female presents the ED for evaluation after slipping and falling at home in the garage landing directly on her buttocks. Injury occurred about 2100 hrs. last night. She states that about 6 weeks ago she slipped and fell and injured her tailbone and was suspected to have a fracture in this area. However she states that it got better fairly promptly as she was able to drive to [place] back in the seated position without discomfort this last week. Currently she has pain over the distal sacrum and at the coccyx-sacral junction. She states she landed hard flat on her but talks and did not fall backwards and hit her head. Chief complaint is pain. At present she doesn't have any medical insurance and does not wish to pursue imaging studies if possible. She states she did take some Tylenol for pain but it did not help and it is throbbing to the point that she couldn't sleep. Onset: Sudden Onset Date: 05/30/19 Onset Time: 21:00 Duration: Hour(s): Location: Reports: Other (Sacrum and coccyx area) Quality: Reports: Ache, Throbbing (Constant deep aching pain.) Severity: Moderate Improves with: Reports: None (710) Worsens with: Reports: Other Context: Reports: Trauma (Tripped and fell flat on her but talks in the garage landing on concrete.). Denies: Activity, Exercise, Lifting, Sick Contact Associated Symptoms: Reports: No Other Symptoms. Denies: Confusion, Chest Pain , Cough, cough w sputum, Fever/Chills, Headaches, Loss of Appetite, Malaise, Rash, Shortness of Breath, Syncope Treatments EPIDEMIOLOGIST: Reports: Acetaminophen Buttock Pain Score (Numeric/FACES): 8 - Related Data Allergies Allergy/AdvReac Type Severity Reaction Status Date / Time ketorolac [From Toradol] Allergy Headache Verified 05/31/19 00:32 latex Allergy Hives Verified 05/31/19 00:32 tramadol Allergy Headache Verified 05/31/19 00:32 ibuprofen AdvReac Abdominal Verified 05/31/19 00:32 Pain Home Meds: Home Meds SUMAtriptan Succinate [Imitrex] 100 mg PO ASDIRECTED PRN #15 tablet 08/28/17 [Rx ] Omeprazole 20 mg PO DAILY 04/14/19 [History] Triamterene/Hydrochlorothiazid [Triamterene-HCTZ 37.5-25 MG] 1 tab PO DAILY [History] oxyCODONE HCl/Acetaminophen [Percocet 5-325 mg Tablet] 1 - 2 each PO Q4H PRN # 20 tablet 05/31/19 [Rx] Past Medical History Cardiovascular History: Reports: Hypertension Respiratory History: Reports: None Gastrointestinal History: Reports: GERD Genitourinary History: Reports: None RN PATIENT CARE History: Reports: Other RN PATIENT CARE History: X 1 Musculoskeletal History: Reports: Back Pain, Chronic, Fracture Other Musculoskeletal History: "TUMMY TUCK" 4 YEARS AGO Neurological History: Reports: Headaches, Chronic Psychiatric History: Reports: Addiction Endocrine/Metabolic History: Reports: Obesity/BMI 30+ Oncologic (Cancer) History: Reports: None Dermatologic History: Reports: Other (See Below) Other Dermatologic History: lipoma - Infectious Disease History Infectious Disease History: Reports: None - Past Surgical History HEENT Surgical History: Reports: Tonsillectomy GI Surgical History: Reports: Appendectomy, Cholecystectomy, Other (See Below) Female Surgical History: Reports: Section, Hysterectomy, Salpingo- Oophorectomy Neurological Surgical History: Reports: C-Spine Musculoskeletal Surgical History: Reports: Arthroscopic Knee, Other (See Below) Social & Family History - Family History Family Medical History: Noncontributory - Tobacco Use Smoking Status *Q: Never Smoker - Caffeine Use Caffeine Use: Reports: Coffee Other Caffeine Use: mountain dew 3 cans daily - Recreational Drug Use Recreational Drug Use: No - Living Situation & Occupation Living situation: Reports: , with Family Occupation: Unemployed ED ROS GENERAL - Review of Systems Review Of Systems: See Below Constitutional: Reports: Decreased Appetite (Did she's quite anxious as her daughter's getting this weekend.). Denies: Fever, Chills, Malaise, Weakness, Fatigue, Weight Loss HEENT: Reports: No Symptoms Respiratory: Reports: No Symptoms Cardiovascular: Reports: No Symptoms Endocrine: Reports: Fatigue GI/Abdominal: Reports: Abdominal Pain (Intermittent problems with abdominal pain ), Constipation (Occasional constipation) : Reports: Frequency Musculoskeletal: Reports: Neck Pain (Has had neck fusion.), Back Pain Neurological: Reports: Numbness, Tingling (In both lower extremities also both upper extremities. She's had bilateral carpal tunnel surgery.), Gait Disturbance (He feels she loses her balance wheeze or than she should.) Psychiatric: Reports: Anxiety Hematologic/Lymphatic: Reports: No Symptoms Immunologic: Reports: No Symptoms ED EXAM,LOWER BACK PAIN/INJURY - Physical Exam Exam: See Below Exam Limited By: No Limitations General Appearance: Alert, WD/WN, No Apparent Distress Head: Atraumatic, Normocephalic Neck: Limited Range of Motion, Other (Well-healed midline cervical scar. She has had cervical fusion through an anterior approach.) Respiratory/Chest: No Respiratory Distress, Lungs Clear, Normal Breath Sounds, No Accessory Muscle Use Cardiovascular: Normal Peripheral Pulses, Regular Rate, Rhythm, No Edema, No Murmur, Tachycardia GI/Abdominal: Normal Bowel Sounds (100/m.), Soft, Non-Tender, No Organomegaly, No Abnormal Bruit, Pelvis Stable Back Exam: Decreased Range of Motion, Vertebral Tenderness (L4-L5 facet joints bilaterally.), Other (Illness over the cost 6 in the sacrum at the junction and the distal portion of the sacrum. No midline shift. Mild tenderness at L4-L5 facet joints bilaterally.) Extremities: Normal Inspection, Normal Range of Motion, Non-Tender, Other (No significant injuries to the hands wrists noted.) Neurological: Alert, Normal Mood/Affect, Normal Dorsiflexion, CN II-XII Intact, Oriented x 3. No: Normal Gait Psychiatric: Normal Affect, Normal Mood Skin Exam: Warm, Dry, Intact, Normal Color, No Rash Course - Vital Signs Last Recorded V/S: Last Vital Signs Temp 36.8 C 05/31/19 00:34 Pulse 100 05/31/19 00:34 Resp 17 05/31/19 00:34 BP 141/109 H 05/31/19 00:34 Pulse Ox 99 05/31/19 00:34 - Orders/Labs/Meds Meds: Medications Discontinued Medications Generic Name Dose Route Start Last Admin Trade Name Freq PRN Reason Stop Dose Admin Oxycodone/Acetaminophen 2 tab 05/31/19 01:36 05/31/19 01:47 Percocet 325-5 Mg PO 05/31/19 01:37 2 tab ONETIME ONE Administration - Radiology Interpretation Free Text/Narrative:: 49-year-old female presents the ED for evaluation of injuries to her sacrum and tailbone area after slipping and falling in the garage on her but talks. No directly onto her but talks landing on her tailbone area. She states she fell about 6-8 weeks ago and was diagnosed with a fracture of the sacrum. He states it got better fairly promptly and she was able to sit and drive to [facility] without she states she feels she reinjured the same area. At present she doesn't have any medical insurance and is not keen on having imaging studies due to the financial constraints. Examination reveals tenderness throughout the distal sacrum and junction of the coccyx with the sacrum. Appears to be normal midline shift of the coccyx. Given is therefore conservative with a donut pad which she already has at home. Percocet tabs 5/3/25 milligrams 2 given in the ED. She will be discharged with the same medication be used on appear basis every 4-6 hours when necessary. Departure - Departure Time of Disposition: 01:37 Disposition: Home, Self-Care 01 Condition: Fair Clinical Impression: Contusion of sacral region Qualifiers: Encounter type: initial encounter Qualified Code(s): S30.0XXA - Contusion of lower back and pelvis, initial encounter - Discharge Information *PRESCRIPTION DRUG MONITORING PROGRAM REVIEWED*: Not Applicable *COPY OF PRESCRIPTION DRUG MONITORING REPORT IN PATIENT DAXA: Not Applicable Prescriptions: oxyCODONE HCl/Acetaminophen [Percocet 5-325 mg Tablet] 1 - 2 each PO Q4H PRN # 20 tablet PRN Reason: pain relief. Instructions: Tailbone Injury, [id number] Referrals: Christina Ding MD [Primary Care Provider] - Forms: ED Department Discharge Additional Instructions: Evaluation in the emergency room tonight in regards to injuries sustained from a fall at home in the garage .Loss of balance seemed to be the cause of the fall. He landed hard on your but talks with injury to the sacrum and coccyx area clinically. All 6 weeks ago injured the same area but she seemed to be gradually getting better. Due to limited finances imaging will not be done tonight. Even is conservative with time to heal. A contusion or bone bruise would be better over a period of 14-20 days. Actually in this area would take 3 months to heal. Suggest treatment with pain medication Percocet 5/325 mg one or 2 every 4-6 hours needed for pain relief. Should take a stool softer daily to prevent constipation from the pain medications. Follow-up with personal care physician if not markedly improved in 10-14 days.
== END 2019-05-31 01:51 | disposition home or self-care (01) ==
LOC: JD.ED 00:18
DX: S30.0XXA Contusion of lower back and pelvis, initial encounter (principal); I10 Essential (primary) hypertension; K21.9 Gastro-esophageal reflux disease without esophagitis; E66.9 Obesity, unspecified; Z68.28 Body mass index [BMI] 28.0-28.9, adult; Z91.041 Radiographic dye allergy status; Z88.8 Allergy status to other drugs, medicaments and biological substances; Z79.899 Other long term (current) drug therapy; W01.0XXA Fall on same level from slipping, tripping and stumbling without subsequent striking against object, initial encounter
CPT/HCPCS: 99283; A9270

== ENCOUNTER 2019-07-01 13:18 | Emergency (ER) | payer SELFPAY ==
[2019-07-01 13:28] VITALS: BP 126/89; PULSE 88
[2019-07-01] MEDS ORDERED: HYDROmorphone 1 MG/ML Syringe IM ONE (14:13)
--- NOTE | 2019-07-01 16:33 | EDM.PDOC ---
ED HPI GENERAL MEDICAL PROBLEM - General Chief Complaint: Syncope Stated Complaint: DIZZY Time Seen by Provider: 07/01/19 13:28 Source of Information: Reports: Patient History Limitations: Reports: No Limitations - History of Present Illness INITIAL COMMENTS - FREE TEXT/NARRATIVE: The patient presents with dizziness and syncope. This has been going on for a few weeks. She did fall and hurt her back with one of these episodes. She has more pain to the left lower back. She has no fever, chills, cough, chest pain or shortness of breath. She has no abdominal pain, nausea or vomiting. Onset: Gradual Duration: Week(s): Location: Reports: Back Quality: Reports: Sharp Severity: Moderate Improves with: Reports: None Worsens with: Reports: None Associated Symptoms: Reports: No Other Symptoms Lower Back Pain Score (Numeric/FACES): 10 - Related Data Allergies Allergy/AdvReac Type Severity Reaction Status Date / Time ketorolac [From Toradol] Allergy Headache Verified 07/01/19 14:22 latex Allergy Rash Verified 07/01/19 14:22 Home Meds: Home Meds SUMAtriptan Succinate [Imitrex] 100 mg PO ASDIRECTED PRN #15 tablet 08/28/17 [Rx ] Omeprazole 20 mg PO DAILY 04/14/19 [History] Lisinopril [Prinivil] 5 mg PO DAILY 07/01/19 [History] Orphenadrine [Norflex] 100 mg PO BID 07/01/19 [History] traZODone HCl [Trazodone HCl] 100 mg PO BEDTIME 07/01/19 [History] Past Medical History Cardiovascular History: Reports: Hypertension Respiratory History: Reports: None Gastrointestinal History: Reports: GERD Genitourinary History: Reports: None IT SERVICE MANAGER History: Reports: Other IT SERVICE MANAGER History: X 1 Musculoskeletal History: Reports: Back Pain, Chronic, Fracture Other Musculoskeletal History: "TUMMY TUCK" 4 YEARS AGO Neurological History: Reports: Headaches, Chronic Psychiatric History: Reports: Addiction Endocrine/Metabolic History: Reports: Obesity/BMI 30+ Oncologic (Cancer) History: Reports: None Dermatologic History: Reports: Other (See Below) Other Dermatologic History: lipoma - Infectious Disease History Infectious Disease History: Reports: None - Past Surgical History HEENT Surgical History: Reports: Tonsillectomy GI Surgical History: Reports: Appendectomy, Cholecystectomy, Other (See Below) Female Surgical History: Reports: Section, Hysterectomy, Salpingo- Oophorectomy Neurological Surgical History: Reports: C-Spine Musculoskeletal Surgical History: Reports: Arthroscopic Knee, Other (See Below) Social & Family History - Family History Family Medical History: Noncontributory - Tobacco Use Smoking Status *Q: Never Smoker - Caffeine Use Caffeine Use: Reports: Tea Other Caffeine Use: mountain dew 3 cans daily - Recreational Drug Use Recreational Drug Use: No - Living Situation & Occupation Living situation: Reports: , with Family Occupation: Unemployed ED ROS GENERAL - Review of Systems Review Of Systems: See Below Constitutional: Reports: No Symptoms HEENT: Reports: No Symptoms Respiratory: Reports: No Symptoms Cardiovascular: Reports: No Symptoms Endocrine: Reports: No Symptoms GI/Abdominal: Reports: No Symptoms : Reports: No Symptoms Musculoskeletal: Reports: Back Pain - Physical Exam Exam: See Below Exam Limited By: No Limitations General Appearance: Alert, No Apparent Distress Ears: Normal External Exam Nose: Normal Inspection Head Exam: Atraumatic, Normocephalic Neck: Normal Inspection Respiratory/Chest: No Respiratory Distress, Lungs Clear, Normal Breath Sounds Cardiovascular: Regular Rate, Rhythm, No Edema, No Murmur GI/Abdominal: Soft, Non-Tender, No Organomegaly, No Mass Neuro Exam (Abbreviated): Alert, Oriented, No Motor/Sensory Deficits Back Exam: Other (Pain upon palpation to the left lower back) EKG INTERPRETATION EKG Date: 07/01/19 Time: 14:41 Rhythm: NSR Rate (Beats/Min): 73 [place]: Normal P-Wave: Present QRS: Normal ST-T: Normal QT: Normal Course - Vital Signs Last Recorded V/S: Last Vital Signs Temp 97.6 F 07/01/19 13:25 Pulse 88 07/01/19 13:25 Resp 20 07/01/19 13:25 BP 126/89 07/01/19 13:25 Pulse Ox 100 07/01/19 13:25 - Orders/Labs/Meds Orders: Active Orders 24 hr Category Date Time Status Cardiac Monitoring [RC] . DIRECTED Care 07/01/19 14:12 Active EKG Documentation Completion [RC] STAT Care 07/01/19 14:12 Active Lumbar Spine 2 or 3V [CR] Stat Exams 07/01/19 14:13 Taken Labs: Laboratory Tests 07/01/19 07/01/19 Range/Units 14:39 14:39 WBC 7.88 (3.98-10.04) K/mm3 RBC 4.88 (3.98-5.22) M/mm3 Hgb 14.4 (11.2-15.7) gm/dl Hct 42.5 (34.1-44.9) % MCV 87.1 (79.4-94.8) fl MCH 29.5 (25.6-32.2) pg MCHC 33.9 (32.2-35.5) g/dl RDW Std Deviation 38.6 (36.4-46.3) fL Plt Count 329 (182-369) K/mm3 MPV 8.5 L (9.4-12.3) fl Neut % (Auto) 57.8 (34.0-71.1) % Lymph % (Auto) 32.6 (19.3-51.7) % [place] % (Auto) 8.5 (4.7-12.5) % Eos % (Auto) 0.5 L (0.7-5.8) Baso % (Auto) 0.3 (0.1-1.2) % Neut # (Auto) 4.56 (1.56-6.13) K/mm3 Lymph # (Auto) 2.57 (1.18-3.74) K/mm3 [place] # (Auto) 0.67 H (0.24-0.36) K/mm3 Eos # (Auto) 0.04 (0.04-0.36) K/mm3 Baso # (Auto) 0.02 (0.01-0.08) K/mm3 Sodium 142 (136-145) mEq/L Potassium 3.7 (3.5-5.1) mEq/L Chloride 106 (98-107) mEq/L Carbon Dioxide 27 (21-32) mEq/L Anion Gap 12.7 (5-15) BUN 16 (7-18) mg/dL Creatinine 0.9 (0.55-1.02) mg/dL Est Cr Clr Drug Dosing 60.46 mL/min Estimated GFR (MDRD) > 60 (>60) mL/min BUN/Creatinine Ratio 17.8 (14-18) Glucose 79 (74-106) mg/dL Calcium 8.7 (8.5-10.1) mg/dL Total Bilirubin 0.5 (0.2-1.0) mg/dL AST 12 L (15-37) U/L ALT 19 (14-59) U/L Alkaline Phosphatase 62 (46-116) U/L Troponin I < 0.017 (0.00-0.056) ng/mL Total Protein 6.7 (6.4-8.2) g/dl Albumin 3.7 (3.4-5.0) g/dl Globulin 3.0 gm/dL Albumin/Globulin Ratio 1.2 (1-2) Meds: Medications Discontinued Medications Generic Name Dose Route Start Last Admin Trade Name Freq PRN Reason Stop Dose Admin Hydromorphone HCl 1 mg 07/01/19 14:13 07/01/19 15:04 Dilaudid IM 07/01/19 14:14 1 mg ONETIME ONE Administration - Re-Assessments/Exams Free Text/Narrative Re-Assessment/Exam: 07/01/19 16:40 I ordered an EKG, labs and an x-ray of her back. Her EKG shows a NSR with no acute changes. Her x-ray shows nothing acute. Her labs look good. I gave her something for pain. I will discharge her home. Departure - Departure Time of Disposition: 16:45 Disposition: Home, Self-Care 01 Condition: Good Clinical Impression: Dizziness Fall Qualifiers: Encounter type: initial encounter Qualified Code(s): W19.XXXA - Unspecified fall, initial encounter Low back pain Qualifiers: Chronicity: acute Back pain laterality: left Sciatica presence: without sciatica Qualified Code(s): M54.5 - Low back pain - Discharge Information *PRESCRIPTION DRUG MONITORING PROGRAM REVIEWED*: No *COPY OF PRESCRIPTION DRUG MONITORING REPORT IN PATIENT DAXA: No Referrals: Teena Ding LPN [Primary Care Provider] - 1 Week Forms: ED Department Discharge Additional Instructions: Drink plenty of fluids. Use ice on your back. Take the pain meds as prescribed. - My Orders Last 24 Hours: My Active Orders 07/01/19 14:12 Cardiac Monitoring [RC] . DIRECTED EKG Documentation Completion [RC] STAT 07/01/19 14:13 Lumbar Spine 2 or 3V [CR] Stat - Assessment/Plan Last 24 Hours: My Active Orders 07/01/19 14:12 Cardiac Monitoring [RC] . DIRECTED EKG Documentation Completion [RC] STAT 07/01/19 14:13 Lumbar Spine 2 or 3V [CR] Stat
--- NOTE | 2019-07-01 16:54 | CR ---
Lumbar spine: AP, lateral and coned-down lateral views centered to the lumbosacral junction were obtained. Comparison: Previous lumbar spine study of 04/14/19. Slight posterior disc space narrowing is noted at L2-3 and L3-4. Mild disc space narrowing is noted at L1-2. Vertebral body heights and disc spaces are otherwise maintained. Minimal spondylolisthesis of L5-S1 is noted most likely due to degenerative apophyseal change. Minimal scoliosis is noted. Pedicles are intact. No fracture or other acute abnormality is seen. Surgical clips are seen from prior cholecystectomy. Mild vascular calcification is noted. Impression: 1. Mild degenerative change as noted above and mild scoliosis and previous cholecystectomy. 2. Findings are fairly stable from previous lumbar spine exam. Diagnostic code #2
== END 2019-07-01 17:39 | disposition home or self-care (01) ==
LOC: JD.ED 13:18
DX: R42 Dizziness and giddiness (principal); M54.5 Low back pain; I10 Essential (primary) hypertension; K21.9 Gastro-esophageal reflux disease without esophagitis; E66.9 Obesity, unspecified; Z68.27 Body mass index [BMI] 27.0-27.9, adult; Z88.6 Allergy status to analgesic agent; Z91.040 Latex allergy status; Z79.899 Other long term (current) drug therapy; W10.9XXA Fall (on) (from) unspecified stairs and steps, initial encounter
CPT/HCPCS: 36415; 72100; 80053; 84484; 85025; 93005; 96372; 99284; J1170; 93010; 99283

== ENCOUNTER 2019-07-29 19:47 | Emergency (ER) | payer SELFPAY ==
--- NOTE | 2019-07-29 20:03 | EDM.PDOC ---
ED HPI GENERAL MEDICAL PROBLEM - General Chief Complaint: Lower Extremity Injury/Pain Stated Complaint: RIGHT FOOT POSSIBLE BROKEN BONE DROPPED SHAMPOO ON Time Seen by Provider: 07/29/19 20:02 - History of Present Illness INITIAL COMMENTS - FREE TEXT/NARRATIVE: 49-year-old female presents emergency room after injuring her right foot on Tuesday. She dropped a bottle of shampoo on it. It started to bruise up and get more and more tender over time and now is very difficult for her to move. She noticed the discoloration starting today but yesterday she had more and more difficulty trying to move her big toe up and down. After the initial injury it has been tender to try and walk on. Right Feet Pain Score (Numeric/FACES): 7 - Related Data Allergies Allergy/AdvReac Type Severity Reaction Status Date / Time ketorolac [From Toradol] Allergy Headache Verified 07/29/19 20:05 latex Allergy Rash Verified 07/29/19 20:05 Home Meds: Home Meds SUMAtriptan Succinate [Imitrex] 100 mg PO ASDIRECTED PRN #15 tablet 08/28/17 [Rx ] Omeprazole 20 mg PO DAILY 04/14/19 [History] Orphenadrine [Norflex] 100 mg PO BID 07/01/19 [History] traZODone HCl [Trazodone HCl] 100 mg PO BEDTIME 07/01/19 [History] Acetaminophen/HYDROcodone [[place] 325-5 MG] 1 tab PO Q6H PRN #8 tablet 07/29/19 [ Rx] Lisinopril 20 mg PO DAILY 07/29/19 [History] Past Medical History Cardiovascular History: Reports: Hypertension Respiratory History: Reports: None Gastrointestinal History: Reports: GERD Genitourinary History: Reports: None 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 PROGRAMMER History: Reports: Other 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 PROGRAMMER History: X 1 Musculoskeletal History: Reports: Back Pain, Chronic, Fracture Other Musculoskeletal History: "TUMMY TUCK" 4 YEARS AGO Neurological History: Reports: Headaches, Chronic Psychiatric History: Reports: Addiction Endocrine/Metabolic History: Reports: Obesity/BMI 30+ Oncologic (Cancer) History: Reports: None Dermatologic History: Reports: Other (See Below) Other Dermatologic History: lipoma - Infectious Disease History Infectious Disease History: Reports: None - Past Surgical History HEENT Surgical History: Reports: Tonsillectomy GI Surgical History: Reports: Appendectomy, Cholecystectomy, Other (See Below) Female Surgical History: Reports: Section, Hysterectomy, Salpingo- Oophorectomy Neurological Surgical History: Reports: C-Spine Musculoskeletal Surgical History: Reports: Arthroscopic Knee, Other (See Below) Social & Family History - Family History Family Medical History: Noncontributory - Caffeine Use Caffeine Use: Reports: Tea Other Caffeine Use: mountain dew 3 cans daily - Living Situation & Occupation Living situation: Reports: , with Family Occupation: Unemployed Review of Systems - Review of Systems Review Of Systems: See Below Eyes: Reports: No Symptoms Respiratory: Reports: No Symptoms Cardiovascular: Reports: No Symptoms GI/Abdominal: Reports: No Symptoms, Other (She does get stomach upset from using ibuprofen) Genitourinary: Reports: No Symptoms Musculoskeletal: Reports: Foot Pain Neurological: Reports: No Symptoms ED EXAM, GENERAL - Physical Exam Exam: See Below Exam Limited By: No Limitations General Appearance: Alert, No Apparent Distress Respiratory/Chest: No Respiratory Distress, Lungs Clear, Normal Breath Sounds Cardiovascular: Regular Rate, Rhythm, No Edema, No Murmur Extremities: Other (Condition of her right foot shows good neurovascular status he has some ecchymosis developing on the dorsum of the forefoot getting her move her toes is a little bit difficult it appears to be intact but very limited range of motion due to discomfort neurovascular status appears normal.) Course - Vital Signs Last Recorded V/S: Last Vital Signs Temp 37.2 C 07/29/19 20:02 Pulse 109 H 07/29/19 20:02 Resp 18 07/29/19 20:02 BP 147/106 H 07/29/19 20:02 Pulse Ox 96 07/29/19 20:02 - Orders/Labs/Meds Orders: Active Orders 24 hr Category Date Time Status Foot Comp Min 3V Rt [CR] Stat Exams 07/29/19 20:17 Taken Acetaminophen/HYDROcodone [[place] 325-5 MG] Med 07/29/19 20:54 Once 1 tab PO ONETIME ONE - Re-Assessments/Exams Free Text/Narrative Re-Assessment/Exam: 07/29/19 20:55 Patient thinks she has another postop shoe at home where x-rays of her foot are negative for acute fracture dislocation or other acute abnormalities. Minimal soft tissue swelling on the dorsum of the foot. Departure - Departure Time of Disposition: 20:56 Disposition: Home, Self-Care 01 Clinical Impression: Contusion of right foot - Discharge Information Prescriptions: Acetaminophen/HYDROcodone [[place] 325-5 MG] 1 tab PO Q6H PRN #8 tablet PRN Reason: Pain Referrals: Teena Ding LPN [Licensed Practical Nurse] - Forms: ED Department Discharge - My Orders Last 24 Hours: My Active Orders 07/29/19 20:17 Foot Comp Min 3V Rt [CR] Stat 07/29/19 20:54 Acetaminophen/HYDROcodone [[place] 325-5 MG] 1 tab PO ONETIME ONE - Assessment/Plan Last 24 Hours: My Active Orders 07/29/19 20:17 Foot Comp Min 3V Rt [CR] Stat 07/29/19 20:54 Acetaminophen/HYDROcodone [[place] 325-5 MG] 1 tab PO ONETIME ONE
[2019-07-29] MEDS ORDERED: Acetaminophen/HYDROcodone 325-5 MG Tab PO ONE (20:54)
[2019-07-29 21:17] VITALS: BP 149/104; PULSE 98
--- NOTE | 2019-07-30 07:06 | CR ---
Right foot: Four views of the right foot were obtained. Comparison: Previous right foot study of 04/14/19. Findings: Screw is noted within the distal fibular shaft which is stable. Plantar spur is noted. Joint spaces are preserved. No acute fracture or dislocation is identified. Impression: 1. Stable findings as described above. 2. No acute bony abnormality is identified on right foot exam. Diagnostic code #2
== END 2019-07-29 21:12 | disposition home or self-care (01) ==
LOC: JD.ED 19:47
DX: S90.31XA Contusion of right foot, initial encounter (principal); I10 Essential (primary) hypertension; K21.9 Gastro-esophageal reflux disease without esophagitis; E66.9 Obesity, unspecified; Z68.28 Body mass index [BMI] 28.0-28.9, adult; Z88.8 Allergy status to other drugs, medicaments and biological substances; Z91.040 Latex allergy status; Z79.899 Other long term (current) drug therapy; W20.8XXA Other cause of strike by thrown, projected or falling object, initial encounter
CPT/HCPCS: 73630; 99283; A9270

== ENCOUNTER 2019-09-12 20:12 | Emergency (ER) | payer SELFPAY ==
[2019-09-12 20:28] VITALS: BP 107/80; PULSE 101
--- NOTE | 2019-09-12 21:31 | EDM.PDOC ---
ED HPI GENERAL MEDICAL PROBLEM - General Chief Complaint: Lower Extremity Injury/Pain Stated Complaint: FOOT PAIN Time Seen by Provider: 09/12/19 20:55 Source of Information: Reports: Patient, Family (Daughter) History Limitations: Reports: No Limitations - History of Present Illness INITIAL COMMENTS - FREE TEXT/NARRATIVE: Ms. Roberts is a 49-year-old woman with a past medical history significant for a well-documented history of addiction to opioids and drug-seeking behavior, who states that she has chronic right ankle pain following a fracture in 1999. She states that she underwent a repair in 1999, then 2 subsequent repairs in 2000. Since yesterday, however, she states that she has new pain to the area, particularly with weightbearing. She states that the pain is radiating up her right lower extremity, and she also reports that all 5 of her toes are tingling. She denies any new injury, and while she walks, she has not had to walk an excessive amount recently. She denies prior similar symptoms. She reports that she has been taking "handfuls" of ibuprofen, Aleve, and Tylenol without relief of her symptoms. The patient's PCP is Dr. Christina Ding, at [facility]. Right Foot Pain Score (Numeric/FACES): 8 - Related Data Allergies Allergy/AdvReac Type Severity Reaction Status Date / Time ketorolac [From Toradol] Allergy Headache Verified 09/12/19 20:28 latex Allergy Rash Verified 09/12/19 20:28 Home Meds: Home Meds SUMAtriptan Succinate [Imitrex] 100 mg PO ASDIRECTED PRN #15 tablet 08/28/17 [Rx ] Omeprazole 20 mg PO DAILY 04/14/19 [History] Orphenadrine [Norflex] 100 mg PO BID 07/01/19 [History] traZODone HCl [Trazodone HCl] 100 mg PO BEDTIME 07/01/19 [History] Acetaminophen/HYDROcodone [[place] 325-5 MG] 1 tab PO Q6H PRN #8 tablet 07/29/19 [ Rx] lisinopriL [Lisinopril] 20 mg PO DAILY 07/29/19 [History] Past Medical History Cardiovascular History: Reports: Hypertension Gastrointestinal History: Reports: GERD 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: Reports: Musculoskeletal History: Reports: Fracture (right ankle) Neurological History: Reports: Migraines Psychiatric History: Reports: Addiction (opioids) - Past Surgical History HEENT Surgical History: Reports: Oral Surgery (wisdom teeth extraction), Tonsillectomy GI Surgical History: Reports: Appendectomy, Cholecystectomy (around 2008) Female Surgical History: Reports: Section (x 1), Hysterectomy ( complete) Neurological Surgical History: Reports: C-Spine (ACDF) Musculoskeletal Surgical History: Reports: Arthroscopic Knee (right), ORIF ( right ankle, 1999 + 2000 x 2) Dermatological Surgical History: Reports: Plastic Surgical Reconstruction/ Repair (Abdominoplasty), Other (See Below) (Liposuction bilteral thighs) Social & Family History - Family History Family Medical History: Noncontributory - Tobacco Use Smoking Status *Q: Never Smoker - Caffeine Use Caffeine Use: Reports: None Other Caffeine Use: mountain dew 3 cans daily - Alcohol Use Alcohol Use History: No - Recreational Drug Use Recreational Drug Use: No - Living Situation & Occupation Living situation: Reports: , with Family (Brother) Occupation: Employed ([employer]) Review of Systems - Review of Systems Review Of Systems: Comprehensive ROS is negative, except as noted in HPI. ED EXAM, GENERAL - Physical Exam Exam: See Below Exam Limited By: No Limitations General Appearance: Alert, WD/WN, No Apparent Distress Extremities: Other (There is mild swelling to the right ankle/foot, when compared to the left, however, this may be chronic secondary to postsurgical changes. There is a well-healed surgical scar over the medial ankle, but no other visible abnormalities to the foot, such as erythema, ecchymosis, or abrasion. The patient jumped exaggeratingly when I palpated her right foot, just to check for temperature and pulse. Her right foot, including the toes, is as warm as her left. There are strong dorsalis pedis and posterior tibialis pulses, that are equal to the left.) Course - Vital Signs Last Recorded V/S: Last Vital Signs Temp 36.3 C 09/12/19 20:25 Pulse 101 H 09/12/19 20:25 Resp 16 09/12/19 20:25 BP 107/80 09/12/19 20:25 Pulse Ox 98 09/12/19 20:25 - Re-Assessments/Exams Free Text/Narrative Re-Assessment/Exam: 09/12/19 21:27 Since the patient has a well-documented history of opioid abuse and drug- seeking behavior, I believe I am justifiably skeptical about the patient's claim of new ankle pain and paresthesia to all of her toes. My concern is buttressed by the patient stating that she is taking "handfuls" of ibuprofen, Aleve, and Tylenol, with absolutely no relief, and by her exaggerated jumping as if in excruciating pain when I barely touched her foot. This leads me to believe that she is once again drug-seeking, however, if her symptoms are genuine, the patient may be suffering from some peripheral neuropathy, perhaps caused by local swelling. I'm going to recommend ice, elevation, ibuprofen (only ), and I will refer her to Ortho for further evaluation. I explained that because there is no history of injury or trauma, x-rays are not indicated. Departure - Departure Time of Disposition: 21:31 Disposition: Home, Self-Care 01 Condition: Good Clinical Impression: Right ankle pain, Paresthesia of right foot - Discharge Information *PRESCRIPTION DRUG MONITORING PROGRAM REVIEWED*: Yes *COPY OF PRESCRIPTION DRUG MONITORING REPORT IN PATIENT DAXA: No Instructions: Ankle Pain, Paresthesia, [id number] Referrals: Christina Ding MD [Primary Care Provider] - Garth Kelley MD [Physician] - Forms: ED Department Discharge Additional Instructions: You were seen in the emergency room after developing pain in your right ankle, especially with weightbearing, and tingling to all of your right toes. Based on your history and physical examination, you may be suffering from peripheral neuropathy to your right ankle and foot. We recommend that you ice your right ankle and foot as much as possible over the next several days, elevate it as much as possible, and take over-the- counter ibuprofen, 3 tablets (600 mg) every 8 hours, with food, as needed for discomfort. Do not take any other NSAIDs, such as aspirin or naproxen (Aleve) in addition to ibuprofen. If your symptoms persist, we recommend that you follow-up with the Orthopedic Surgeon Dr. Garth Kelley, for further evaluation. If any other problems, please do not hesitate to return to the ER. Sepsis Event Note - Evaluation Sepsis Screening Result: No Definite Risk - Focused Exam Date Exam was Performed: 09/14/19 Time Exam was Performed: 01:27
== END 2019-09-12 21:49 | disposition home or self-care (01) ==
LOC: JD.ED 20:12
DX: M25.572 Pain in left ankle and joints of left foot (principal); R20.2 Paresthesia of skin; I10 Essential (primary) hypertension; Z91.040 Latex allergy status; Z88.6 Allergy status to analgesic agent; Z79.899 Other long term (current) drug therapy
CPT/HCPCS: 99283

== ENCOUNTER 2019-10-26 22:35 | Emergency (ER) | payer SELFPAY ==
[2019-10-26 22:44] VITALS: BP 102/85; PULSE 103
--- NOTE | 2019-10-26 23:16 | EDM.PDOC ---
ED HPI GENERAL MEDICAL PROBLEM - General Chief Complaint: Back Pain or Injury Stated Complaint: LOWER BACK PAIN Time Seen by Provider: 10/26/19 22:37 Source of Information: Reports: Patient History Limitations: Reports: No Limitations - History of Present Illness INITIAL COMMENTS - FREE TEXT/NARRATIVE: This is a 49-year-old female. This morning she states she was in the shower was not bending over or doing anything when she had sudden pain in the lower back and then her lower back got numb. Is not numb now and she denies any pain running down her legs. She says she does get tingling in her toes at times but she has a long history of chronic low back problems. She did not fall down and there was no trauma to her lower back today. She tried some Tylenol some ibuprofen and Norflex but is not helping. Not appear to be in distress. Due to her chronic low back pain she is never had an MRI in the past and I suggested this might be something she needs to get and have her family doctor order if she continues to have low back problems. Splane that an x-ray shows bones and no soft tissue and since she had no trauma it would not be worthwhile getting an x-ray. Did look up her [place] monitoring prescription and she is seen 18 providers in the last 2 years and gone to 6 pharmacies and she is consistently getting hydrocodone and tramadol occasionally some oxycodone for the last 2 years from various providers. I explained to her that we do not provide narcotics for chronic low back pain but that would give her a shot of Valium to help with her muscle tightness and I will also help relax her and hopefully ease up some of the pain. She wondered a prescription of Valium to go home and I explained I would not provide that she would need to get that from her family doctor. Last prescription for narcotics was in September 27 where she got 30 hydrocodone but the patient says she does not remember getting that. Back Pain Score (Numeric/FACES): 9 - Related Data Allergies Allergy/AdvReac Type Severity Reaction Status Date / Time ketorolac [From Toradol] Allergy Headache Verified 10/26/19 22:44 latex Allergy Rash Verified 10/26/19 22:44 Home Meds: Home Meds SUMAtriptan Succinate [Imitrex] 100 mg PO ASDIRECTED PRN #15 tablet 08/28/17 [Rx ] Omeprazole 20 mg PO DAILY 04/14/19 [History] Orphenadrine [Norflex] 100 mg PO BID 07/01/19 [History] traZODone HCl [Trazodone HCl] 100 mg PO BEDTIME 07/01/19 [History] lisinopriL [Lisinopril] 20 mg PO DAILY 07/29/19 [History] Past Medical History Cardiovascular History: Reports: Hypertension Respiratory History: Reports: None Gastrointestinal History: Reports: GERD Genitourinary History: Reports: None 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 SHELL COREMAKER History: X 1 Musculoskeletal History: Reports: Fracture Other Musculoskeletal History: "TUMMY TUCK" 4 YEARS AGO Neurological History: Reports: Migraines Psychiatric History: Reports: Addiction Endocrine/Metabolic History: Reports: Obesity/BMI 30+ Oncologic (Cancer) History: Reports: None Dermatologic History: Reports: Other (See Below) Other Dermatologic History: lipoma - Infectious Disease History Infectious Disease History: Reports: None - Past Surgical History HEENT Surgical History: Reports: Oral Surgery, Tonsillectomy GI Surgical History: Reports: Appendectomy, Cholecystectomy Female Surgical History: Reports: Section, Hysterectomy Neurological Surgical History: Reports: C-Spine Musculoskeletal Surgical History: Reports: Arthroscopic Knee, ORIF Dermatological Surgical History: Reports: Plastic Surgical Reconstruction/Repair , Other (See Below) Social & Family History - Family History Family Medical History: Noncontributory - Tobacco Use Smoking Status *Q: Never Smoker Second Hand Smoke Exposure: No - Caffeine Use Caffeine Use: Reports: None Other Caffeine Use: mountain dew 3 cans daily - Recreational Drug Use Recreational Drug Use: No - Living Situation & Occupation Living situation: Reports: , with Family (Brother) Occupation: Employed ([employer] GENERAL - Review of Systems Review Of Systems: See Below Constitutional: Denies: Fever, Chills HEENT: Reports: No Symptoms Respiratory: Reports: No Symptoms Cardiovascular: Reports: No Symptoms Endocrine: Reports: No Symptoms GI/Abdominal: Reports: No Symptoms : Reports: No Symptoms Musculoskeletal: Reports: Back Pain, Foot Pain, Other (She has multiple musculoskeletal complaints) Skin: Reports: No Symptoms Neurological: Reports: No Symptoms Psychiatric: Reports: No Symptoms Hematologic/Lymphatic: Reports: No Symptoms ED EXAM,LOWER BACK PAIN/INJURY - Physical Exam Exam: See Below Exam Limited By: No Limitations General Appearance: Alert, WD/WN, No Apparent Distress Eye Exam: Bilateral Eye: Normal Inspection Ears: Normal External Exam Nose: Normal Inspection Throat/Mouth: Normal Inspection, Normal Lips, Normal Voice, No Airway Compromise Head: Normocephalic Neck: Supple Respiratory/Chest: No Respiratory Distress Back Exam: Other (She was able to get out of the bed on her own and she has tenderness in the sacral area on palpation and mildly in the paraspinal muscles of the lumbar spine but no midline spine pain, she is able to bend to about 60 degrees forward before she says she feels the pulling in the tightness and some discomfort in that lower sacral area. However she will bend and sit with no evidence of discomfort and she denies any pain down her legs at this time.) Extremities: Normal Inspection, Normal Range of Motion Neurological: Alert, Normal Mood/Affect Psychiatric: Normal Affect, Normal Mood Skin Exam: Warm, Dry Course - Vital Signs Last Recorded V/S: Last Vital Signs Temp 98.4 F 10/26/19 22:42 Pulse 103 H 10/26/19 22:42 Resp 18 10/26/19 22:42 BP 102/85 10/26/19 22:42 Pulse Ox 100 10/26/19 22:42 - Orders/Labs/Meds Meds: Medications Discontinued Medications Generic Name Dose Route Start Last Admin Trade Name Demetra PRN Reason Stop Dose Admin Diazepam 5 mg 10/26/19 23:14 10/26/19 23:30 Valium IM 10/26/19 23:15 5 mg ONETIME ONE Administration Departure - Departure Time of Disposition: 23:15 Disposition: Home, Self-Care 01 Condition: Fair Clinical Impression: Low back pain Qualifiers: Chronicity: acute Back pain laterality: bilateral Sciatica presence: without sciatica Qualified Code(s): M54.5 - Low back pain - Discharge Information *PRESCRIPTION DRUG MONITORING PROGRAM REVIEWED*: Yes *COPY OF PRESCRIPTION DRUG MONITORING REPORT IN PATIENT DAXA: No Instructions: Chronic Back Pain, [id number] Referrals: Christina Ding MD [Primary Care Provider] - Forms: ED Department Discharge Additional Instructions: Continue with your Norflex and the ibuprofen and Tylenol, use ice to your lower back as well to help with the acute pain, rest as much as possible and avoid any bending or lifting, follow-up with your family doctor on Tuesday and you might consider getting an MRI of your back, return to the ER for emergencies Sepsis Event Note - Evaluation Sepsis Screening Result: No Definite Risk - Focused Exam Vital Signs: Vital Signs Temp Pulse Resp BP Pulse Ox 10/26/19 22:42 98.4 F 103 H 18 102/85 100 Date Exam was Performed: 10/26/19 Time Exam was Performed: 23:42
== END 2019-10-26 23:34 | disposition home or self-care (01) ==
LOC: JD.ED 22:35
DX: M54.5 Low back pain (principal); I10 Essential (primary) hypertension; K21.9 Gastro-esophageal reflux disease without esophagitis; E66.9 Obesity, unspecified; Z91.040 Latex allergy status; Z88.6 Allergy status to analgesic agent; Z79.899 Other long term (current) drug therapy; Z90.49 Acquired absence of other specified parts of digestive tract; Z90.710 Acquired absence of both cervix and uterus
CPT/HCPCS: 96372; 99283; J3360

== ENCOUNTER 2019-10-27 11:48 | Emergency (ER) | payer SELFPAY ==
[2019-10-27 12:05] VITALS: BP 94/73; PULSE 77
[2019-10-27] MEDS ORDERED: HYDROmorphone 1 MG/ML Syringe IM ONE (12:30)
[2019-10-27] MEDS ORDERED: predniSONE 20 MG Tab PO ONE (12:30)
--- NOTE | 2019-10-27 12:39 | EDM.PDOC ---
ED HPI GENERAL MEDICAL PROBLEM - General Chief Complaint: Back Pain or Injury Stated Complaint: LOWER BACK PAIN Time Seen by Provider: 10/27/19 11:57 Source of Information: Reports: Patient, RN Notes Reviewed - History of Present Illness INITIAL COMMENTS - FREE TEXT/NARRATIVE: 49-year-old female returns to ED with low back pain. She was just evaluated for low back pain here in the ED about 14-16 hours ago last evening. She does have history of intermittent episodes of low back discomfort for many years, more problematic for the past 2 or 3 years. Her to record of last evening for details of that visit. He did with Valium IM which did give her relief "for short period time and now the pain is back, even worse. She also states that she has paresthesias of her low back pain is now shooting down to bilateral lower by doc but not clear down into the leg. No fall or injury last evening. She has taken a fair amount of hydrocodone for the back pain, perhaps other areas of discomfort in the past with her last prescription of 30 tablets about 1 month ago. She has been taking some Tylenol today and also I believe some ibuprofen and states "that is not working" Lower Back Pain Score (Numeric/FACES): 10 - Related Data Allergies Allergy/AdvReac Type Severity Reaction Status Date / Time ketorolac [From Toradol] Allergy Headache Verified 10/26/19 22:44 latex Allergy Rash Verified 10/26/19 22:44 Home Meds: Home Meds SUMAtriptan Succinate [Imitrex] 100 mg PO ASDIRECTED PRN #15 tablet 08/28/17 [Rx ] Omeprazole 20 mg PO DAILY 04/14/19 [History] Orphenadrine [Norflex] 100 mg PO BID 07/01/19 [History] traZODone HCl [Trazodone HCl] 100 mg PO BEDTIME 07/01/19 [History] lisinopriL [Lisinopril] 20 mg PO DAILY 07/29/19 [History] Diazepam [Valium] 5 mg PO BID PRN #10 tablet 10/27/19 [Rx] predniSONE [Prednisone] 50 mg PO DAILY #6 tablet 10/27/19 [Rx] Past Medical History Cardiovascular History: Reports: Hypertension Respiratory History: Reports: None Gastrointestinal History: Reports: GERD Genitourinary History: Reports: None 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 POWDER MIXER History: X 1 Musculoskeletal History: Reports: Back Pain, Chronic, Fracture Other Musculoskeletal History: "TUMMY TUCK" 4 YEARS AGO Neurological History: Reports: Migraines Psychiatric History: Reports: Addiction Endocrine/Metabolic History: Reports: Obesity/BMI 30+ Oncologic (Cancer) History: Reports: None Dermatologic History: Reports: Other (See Below) Other Dermatologic History: lipoma - Infectious Disease History Infectious Disease History: Reports: None - Past Surgical History HEENT Surgical History: Reports: Oral Surgery, Tonsillectomy GI Surgical History: Reports: Appendectomy, Cholecystectomy Female Surgical History: Reports: Section, Hysterectomy Neurological Surgical History: Reports: C-Spine Musculoskeletal Surgical History: Reports: Arthroscopic Knee, ORIF Dermatological Surgical History: Reports: Plastic Surgical Reconstruction/Repair , Other (See Below) Social & Family History - Family History Family Medical History: Noncontributory - Tobacco Use Smoking Status *Q: Never Smoker - Caffeine Use Caffeine Use: Reports: Coffee, Tea Other Caffeine Use: mountain dew 3 cans daily - Recreational Drug Use Recreational Drug Use: No - Living Situation & Occupation Living situation: Reports: , with Family (Brother) Occupation: Employed ([employer] ED ROS GENERAL - Review of Systems Review Of Systems: See Below HEENT: Reports: No Symptoms Respiratory: Reports: No Symptoms Cardiovascular: Reports: No Symptoms Musculoskeletal: Reports: Back Pain. Denies: Leg Pain Skin: Reports: No Symptoms Neurological: Reports: Numbness (There has been some intermittent mild numbness low back and occasionally left foot), Difficulty Walking (Walking and movement does make the pain worse). Denies: Weakness ED EXAM,LOWER BACK PAIN/INJURY - Physical Exam Exam: See Below General Appearance: Alert, Mild Distress Eye Exam: Bilateral Eye: PERRL Head: Atraumatic. No: Facial Swelling Neck: Supple Respiratory/Chest: No Respiratory Distress, Lungs Clear Back Exam: Other (moderate tenderness low mid back, mid back nontender, No visible swelling or erythema, no surgical scars) Extremities: Normal Inspection Neurological: Alert, No Motor/Sensory Deficits, Straight Leg Raise (L) (Mild pain with SLR on the L) Skin Exam: Warm, Dry, Normal Color Course - Vital Signs Last Recorded V/S: Last Vital Signs Temp 98.3 F 10/27/19 12:02 Pulse 77 10/27/19 12:02 Resp 20 10/27/19 12:02 BP 94/73 10/27/19 12:02 Pulse Ox 98 10/27/19 12:02 - Orders/Labs/Meds Meds: Medications Discontinued Medications Generic Name Dose Route Start Last Admin Trade Name Freddyq PRN Reason Stop Dose Admin Hydromorphone HCl 1 mg 10/27/19 12:30 10/27/19 12:44 Dilaudid IM 10/27/19 12:31 1 mg ONETIME ONE Administration Prednisone 40 mg 10/27/19 12:30 10/27/19 12:44 Prednisone PO 10/27/19 12:31 40 mg ONETIME ONE Administration - Re-Assessments/Exams Free Text/Narrative Re-Assessment/Exam: 10/27/19 12:58 Patient states she is allergic to torodol which is what I would rather have given. Have given dilaudid 1 mg IM. Have also given prednisone 40 mg PO, discharge instr. as documented. Departure - Departure Time of Disposition: 12:33 Disposition: Home, Self-Care 01 Condition: Fair Clinical Impression: Back pain at L4-L5 level - Discharge Information Prescriptions: Diazepam [Valium] 5 mg PO BID PRN #10 tablet PRN Reason: Muscle Spasm predniSONE [Prednisone] 50 mg PO DAILY #6 tablet Instructions: Chronic Back Pain, [id number] Referrals: Teena Ding LPN [Licensed Practical Nurse] - Forms: ED Department Discharge Additional Instructions: Prednisone 50 mg every morning for the next 6 days, you have been given your first dose while here in the ED. The steroid medication should reduce swelling, inflammation in your low back which should help you get to this episode more quickly. Continue to alternate Tylenol with ibuprofen as needed for pain, you also may take valium 5 mg up to 2 times daily for muscle relaxation but do not drive when taking valium as that is a strong sedative. Prescription for prednisone and valium has been sent to [facility] at the [facility]. Follow up with your regular provider in about 3 to 5 days for recheck. Return to ED as needed if symptoms worsening in any way. Sepsis Event Note - Evaluation Sepsis Screening Result: No Definite Risk - Focused Exam Vital Signs: Vital Signs Temp Pulse Resp BP Pulse Ox 10/27/19 12:02 98.3 F 77 20 94/73 98 Date Exam was Performed: 10/27/19 Time Exam was Performed: 16:10
== END 2019-10-27 13:05 | disposition home or self-care (01) ==
LOC: JD.ED 11:48
DX: M54.5 Low back pain (principal); I10 Essential (primary) hypertension; K21.9 Gastro-esophageal reflux disease without esophagitis; E66.9 Obesity, unspecified; Z68.29 Body mass index [BMI] 29.0-29.9, adult; Z88.8 Allergy status to other drugs, medicaments and biological substances; Z91.040 Latex allergy status; Z79.899 Other long term (current) drug therapy
CPT/HCPCS: 96372; 99283; A9270; J1170

== ENCOUNTER 2020-02-14 19:23 | Emergency (ER) | payer MEDICAID ==
[2020-02-14 19:35] VITALS: BP 130/101; PULSE 101
--- NOTE | 2020-02-14 20:07 | EDM.PDOC ---
ED HPI GENERAL MEDICAL PROBLEM - General Chief Complaint: Chest Pain Stated Complaint: UPPER RIGHT SIDE PAIN Time Seen by Provider: 02/14/20 19:51 Source of Information: Reports: Patient History Limitations: Reports: No Limitations - History of Present Illness INITIAL COMMENTS - FREE TEXT/NARRATIVE: Ms. Roberts is a pleasant 49-year-old woman with a past medical history significant for a well-documented history of addiction to opioids and drug- seeking behavior, who now presents the ED stating that she developed pain in her right axilla this past 02/12/2020. She describes the pain as sharp and stabbing. She states that it is made worse if she takes a deep breath, but is still present even if she does not move. She denies any injury to the area. No prior similar symptoms. The patient states that she has been taking Tylenol, as well as a 20 mg tablet of prednisone today, without relief of symptoms. Here in the ED, the patient's initial BP is found to be modestly elevated at 130 /101, and mildly tachycardic at 101 bpm. She is afebrile, saturating 100% on room air. Other than the axillary pain, the patient denies recent fever, chills, sore throat, ear pain, nasal or sinus congestion, cough, dyspnea, chest pain, palpitations, nausea, vomiting, constipation, diarrhea, abdominal pain, urinary symptoms, recent weight gain or weight loss, recent bloody bowel movements or black bowel movements, recent joint aches, headaches, or rashes. The patient does not have a PCP. 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 Right Cheek Pain Score (Numeric/FACES): 9 - Related Data Allergies Allergy/AdvReac Type Severity Reaction Status Date / Time ketorolac [From Toradol] Allergy Headache Verified 10/26/19 22:44 latex Allergy Rash Verified 10/26/19 22:44 Home Meds: Home Meds SUMAtriptan succinate [Imitrex] 100 mg PO ASDIRECTED PRN #15 tablet 08/28/17 [Rx ] Omeprazole 20 mg PO DAILY 04/14/19 [History] traZODone HCl [Trazodone HCl] 100 mg PO BEDTIME 07/01/19 [History] lisinopriL [Lisinopril] 20 mg PO DAILY 07/29/19 [History] predniSONE [Prednisone] 50 mg PO DAILY #6 tablet 10/27/19 [Rx] Orphenadrine [Norflex] 1 tab PO Q12H PRN #14 tab.er 02/14/20 [Rx] Phentermine HCl 37.5 mg PO DAILY 02/14/20 [History] Past Medical History Cardiovascular History: Reports: Hypertension Gastrointestinal History: Reports: GERD Musculoskeletal History: Reports: Fracture (right ankle) Neurological History: Reports: Migraines Psychiatric History: Reports: Addiction (opioids, benzodiazepines) - Past Surgical History HEENT Surgical History: Reports: Oral Surgery (wisdom teeth extraction), Tonsillectomy GI Surgical History: Reports: Appendectomy, Cholecystectomy (around 2008) Female Surgical History: Reports: Section (x 1), Hysterectomy ( complete) Neurological Surgical History: Reports: C-Spine (ACDF) Musculoskeletal Surgical History: Reports: Arthroscopic Knee (right), ORIF ( right ankle, 1999, + 2000 x 2) Dermatological Surgical History: Reports: Plastic Surgical Reconstruction/ Repair (Abdominoplasty), Other (See Below) Social & Family History - Family History Family Medical History: Noncontributory - Tobacco Use Smoking Status *Q: Never Smoker - Caffeine Use Caffeine Use: Reports: Soda Other Caffeine Use: mountain dew 3 cans daily - Recreational Drug Use Recreational Drug Use: No - Living Situation & Occupation Living situation: Reports: , with Family (Brother) Occupation: Employed ([employer]) ED ROS GENERAL - Review of Systems Review Of Systems: Comprehensive ROS is negative, except as noted in HPI. Musculoskeletal: Reports: Back Pain (chronic) ED EXAM, GENERAL - Physical Exam Exam: See Below Exam Limited By: No Limitations General Appearance: Alert, WD/WN, No Apparent Distress Eye Exam: Bilateral Eye: EOMI, Normal Inspection Ears: Normal External Exam, Hearing Grossly Normal Nose: Normal Inspection Throat/Mouth: Normal Inspection, Normal Lips, Normal Voice, No Airway Compromise Head: Atraumatic, Normocephalic Neck: Normal Inspection, Full Range of Motion Respiratory/Chest: No Respiratory Distress, Lungs Clear, Normal Breath Sounds, No Accessory Muscle Use, Other (Reproducible tenderness to palpation of the right axilla). No: Decreased Breath Sounds, Crackles, Rhonchi, Wheezing, Stridor, Pleural Rub, Prolonged Expiration Cardiovascular: Normal Peripheral Pulses, Regular Rate, Rhythm, No Edema, No Gallop, No JVD, No Murmur, No Rub Peripheral Pulses: 2+: Radial (L), Radial (R) GI/Abdominal: Normal Bowel Sounds, Soft, Non-Tender, No Organomegaly, No Distention, No Abnormal Bruit, No Mass (Female) Exam: Deferred Rectal (Female) Exam: Deferred Back Exam: Normal Inspection, Full Range of Motion, NT Extremities: Normal Inspection, Normal Range of Motion, No Pedal Edema, Normal Capillary Refill Neurological: Alert, Oriented, Normal Cognition, No Motor/Sensory Deficits Psychiatric: Normal Affect Skin Exam: Warm, Dry, Intact, Normal Color, No Rash Course - Vital Signs Last Recorded V/S: Last Vital Signs Temp 36.6 C 02/14/20 19:34 Pulse 101 H 02/14/20 19:34 Resp 20 02/14/20 19:34 BP 130/101 H 02/14/20 19:34 Pulse Ox 100 02/14/20 19:34 - Orders/Labs/Meds Labs: Laboratory Tests 02/14/20 Range/Units 20:20 D-Dimer, Quantitative < 0.19 L (0.19-0.50) mg/L Meds: Medications Discontinued Medications Generic Name Dose Route Start Last Admin Trade Name Freq PRN Reason Stop Dose Admin Orphenadrine Citrate 100 mg 02/14/20 21:30 02/14/20 21:50 Norflex PO 02/14/20 21:31 100 mg ONETIME STA Administration - Re-Assessments/Exams Free Text/Narrative Re-Assessment/Exam: 02/14/20 20:01 As above, the patient has been experiencing right axillary pain the past 2 days. Her pain is reproducible to palpation, and I hear no decreased breath sounds or pleural rub on auscultation. I suspect her pain is musculoskeletal, but I have ordered a chest x-ray to rule out a pneumothorax, and a D-dimer to rule out a PE. 02/14/20 20:53 2-view chest radiograph is read by Dr. Hill as: 1. Findings as noted above. 2. Nothing acute is appreciated. 02/14/20 21:30 The patient's D-dimer is undetectably low. Based on the above, the patient's pain is most likely musculoskeletal. I will start her on Norflex. 02/14/20 21:33 Test results, my diagnosis, and plan discussed with the patient. She is agreeable. I will submit a prescription for Norflex. Departure - Departure Time of Disposition: 21:33 Disposition: Home, Self-Care 01 Condition: Good Clinical Impression: Musculoskeletal chest pain - Discharge Information *PRESCRIPTION DRUG MONITORING PROGRAM REVIEWED*: Not Applicable *COPY OF PRESCRIPTION DRUG MONITORING REPORT IN PATIENT DAXA: Not Applicable Prescriptions: Orphenadrine [Norflex] 1 tab PO Q12H PRN #14 tab.er PRN Reason: Muscle Spasm Instructions: Nonspecific Chest Pain, Adult, [id number] Referrals: PCP,None [Primary Care Provider] - Forms: ED Department Discharge Additional Instructions: You were seen in the emergency room for right armpit area since Tuesday, 2019. Work-up in the ER included a chest x-ray and a D-dimer. Both of which were normal. You do not have pneumonia or a collapsed lung. You do not have a blood clot in your lungs. Based on your history, physical exam, and ER tests, the cause of your pain is most likely musculoskeletal in etiology. You have been started on the muscle relaxant Norflex, and a prescription for Norflex has been sent to the [facility], located at [address] [place] [address]. Take 1 tablet of Norflex every 12 hours, starting tomorrow morning , 02/15/2020, as prescribed. In addition to Norflex, you may also take Tylenol or ibuprofen, however, we recommend that you not continue to take prednisone. If any other problems, please do not hesitate to return to the ER. Sepsis Event Note - Evaluation Sepsis Screening Result: No Definite Risk - Focused Exam Vital Signs: Vital Signs Temp Pulse Resp BP Pulse Ox 02/14/20 19:34 36.6 C 101 H 20 130/101 H 100 Date Exam was Performed: 02/14/20 Time Exam was Performed: 22:47
--- NOTE | 2020-02-14 20:24 | CR ---
Chest: 2 views of the chest were obtained. Comparison: Prior chest x-ray of 06/08/15. Heart size at the upper limits of normal. Upper mediastinum is normal. Lungs are clear but no acute parenchymal change. Slight scoliosis is noted within the spine. Previous cervical spine surgery is noted. Scattered disc space narrowing within the thoracic spine is seen. Surgical clips are seen from prior cholecystectomy. Impression: 1. Findings as noted above. 2. Nothing acute is appreciated. Diagnostic code #2 Study was dictated in MDT
[2020-02-14] MEDS ORDERED: Orphenadrine 100 MG Tab.ER PO STA (21:30)
== END 2020-02-14 21:52 | disposition home or self-care (01) ==
LOC: JD.ED 19:23
DX: R07.89 Other chest pain (principal); I10 Essential (primary) hypertension; K21.9 Gastro-esophageal reflux disease without esophagitis; G43.909 Migraine, unspecified, not intractable, without status migrainosus; Z88.6 Allergy status to analgesic agent; Z91.040 Latex allergy status; Z79.899 Other long term (current) drug therapy
CPT/HCPCS: 36415; 71046; 85379; 99283; A9270

== ENCOUNTER 2020-02-15 10:04 | Emergency (ER) | payer MEDICAID ==
[2020-02-15 10:22] VITALS: BP 127/86; PULSE 107
[2020-02-15] MEDS ORDERED: Acetaminophen/HYDROcodone 325-5 MG Tab PO ONE (11:37)
--- NOTE | 2020-02-15 11:44 | EDM.PDOC ---
ED HPI GENERAL MEDICAL PROBLEM - General Chief Complaint: Flank Pain Stated Complaint: UPPER RT SIDE PAIN NOT BETTER Time Seen by Provider: 02/15/20 11:02 Source of Information: Reports: Patient, RN Notes Reviewed History Limitations: Reports: No Limitations - History of Present Illness INITIAL COMMENTS - FREE TEXT/NARRATIVE: Patient is a 50-year-old female who presents to the ED for evaluation of her upper right back pain. The patient states that the pain is in the same place as it was last night at her last evaluation, but states it has worsened. She notes this to be straight under her right shoulder blade. Patient states that the pain does worsen with any sort of movement, and would rate the pain a 10 out of 10 on the pain scale. She states she has been using the muscle relaxers , Tylenol and ibuprofen at home, and nothing seems to be helping much. Patient has not tried any sort of chiropractic treatments for this at this time. 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 Patient does not have a regular care provider at this time. She states that she does take daily medications for blood pressure, etc. the patient denies any other sick-like symptoms, fever/chills, shortness of breath/cough, nausea/vomiting/diarrhea. Patient states that she has had her gallbladder removed, and has had her appendix removed as well. She did get a d-dimer, and a chest x-ray last night with a prescription for Norflex at her visit. Right Flank Pain Score (Numeric/FACES): 9 - Related Data Allergies Allergy/AdvReac Type Severity Reaction Status Date / Time ketorolac [From Toradol] Allergy Headache Verified 02/15/20 10:22 latex Allergy Rash Verified 02/15/20 10:22 Home Meds: Home Meds SUMAtriptan succinate [Imitrex] 100 mg PO ASDIRECTED PRN #15 tablet 08/28/17 [Rx ] Omeprazole 20 mg PO DAILY 04/14/19 [History] traZODone HCl [Trazodone HCl] 100 mg PO BEDTIME 07/01/19 [History] lisinopriL [Lisinopril] 20 mg PO DAILY 07/29/19 [History] Orphenadrine [Norflex] 1 tab PO Q12H PRN #14 tab.er 02/14/20 [Rx] Phentermine HCl 37.5 mg PO DAILY 02/14/20 [History] Acetaminophen/HYDROcodone [Rembert 325-5 MG] 1 tab PO Q6H PRN #12 tablet 02/15/20 [Rx] predniSONE [Prednisone] 20 mg PO DAILY 02/15/20 [History] Past Medical History Cardiovascular History: Reports: Hypertension Gastrointestinal History: Reports: GERD 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 Musculoskeletal History: Reports: Fracture (rib fracture) Other Musculoskeletal History: "TUMMY TUCK" 4 YEARS AGO Neurological History: Reports: Migraines Psychiatric History: Reports: Addiction (of opioids) Endocrine/Metabolic History: Reports: Obesity/BMI 30+ Dermatologic History: Reports: Other (See Below) Other Dermatologic History: lipoma - Past Surgical History HEENT Surgical History: Reports: Oral Surgery, Tonsillectomy GI Surgical History: Reports: Appendectomy, Cholecystectomy Female Surgical History: Reports: Section, Hysterectomy Neurological Surgical History: Reports: C-Spine Musculoskeletal Surgical History: Reports: Arthroscopic Knee, ORIF Dermatological Surgical History: Reports: Plastic Surgical Reconstruction/Repair , Other (See Below) Social & Family History - Family History Family Medical History: Noncontributory - Tobacco Use Smoking Status *Q: Never Smoker - Caffeine Use Caffeine Use: Reports: Soda Other Caffeine Use: mountain dew 3 cans daily - Recreational Drug Use Recreational Drug Use: No - Living Situation & Occupation Living situation: Reports: , with Family (Brother) Occupation: Employed ([employer]) ED ROS GENERAL - Review of Systems Review Of Systems: Comprehensive ROS is negative, except as noted in HPI. ED EXAM, GENERAL - Physical Exam Exam: See Below Exam Limited By: No Limitations General Appearance: Alert, WD/WN, No Apparent Distress Eye Exam: Bilateral Eye: EOMI, Normal Inspection, PERRL Ears: Normal External Exam Nose: Normal Inspection Throat/Mouth: Normal Inspection, Normal Lips, Normal Teeth, Normal Gums, Normal Oropharynx, Normal Voice, No Airway Compromise Head: Atraumatic, Normocephalic Neck: Normal Inspection, Supple, Non-Tender, Full Range of Motion Respiratory/Chest: No Respiratory Distress, Lungs Clear, Normal Breath Sounds, No Accessory Muscle Use, Chest Non-Tender Cardiovascular: Normal Peripheral Pulses, Regular Rate, Rhythm, No Murmur Peripheral Pulses: 3+: Radial (L), Radial (R) GI/Abdominal: Normal Bowel Sounds, Soft, Non-Tender, No Distention, No Mass Back Exam: Normal Inspection, Decreased Range of Motion (d/t pain in upper back , when she makes much for a movement at all, this seems to elicit pain) Extremities: Normal Inspection, Normal Capillary Refill Neurological: Alert, Oriented, Normal Cognition, No Motor/Sensory Deficits Psychiatric: Normal Affect, Normal Mood Skin Exam: Warm, Dry, Intact, Normal Color, No Rash Course - Vital Signs Last Recorded V/S: Last Vital Signs Temp 97.3 F 02/15/20 10:18 Pulse 107 H 02/15/20 10:18 Resp 18 02/15/20 10:18 BP 127/86 02/15/20 10:18 Pulse Ox 98 02/15/20 10:18 - Orders/Labs/Meds Meds: Medications Discontinued Medications Generic Name Dose Route Start Last Admin Trade Name Demetra PRN Reason Stop Dose Admin Hydrocodone Bitart/Acetaminophen 1 tab 02/15/20 11:37 02/15/20 11:42 Rembert 325-5 Mg PO 02/15/20 11:38 1 tab ONETIME ONE Administration - Re-Assessments/Exams Free Text/Narrative Re-Assessment/Exam: 02/15/20 11:44 Patient presents to the ED for the evaluation of her ongoing back pain. I did read Dr. Bazan's note, and do likely agree is probably more of a muscle spasm in nature, although she could have subluxed a rib head, or less likely have an occult rib fracture that was not seen on the chest x-ray. Nonetheless, I have ordered 1 tablet of hydrocodone/acetaminophen 5/325, for initial pain management , and will likely send the patient home with a few tablets of this to get her through the worst of the pain and have her follow-up with a chiropractor and a regular provider for further management. Patient seems to be okay with this plan at this time. 02/15/20 12:37 Patient was reassessed at bedside, and states she is able to breathe a little easier due to the pain control. We will discharge her home at this time. The patient's drug monitoring program was checked, and it does appear that she is seeing Rachna Pruitt in the past, and that her last fill of any sort of narcotic medications was oxycodone 10 mg tablets on 01/22/2020. Departure - Departure Time of Disposition: 12:41 Disposition: Home, Self-Care 01 Condition: Good Clinical Impression: Acute upper back pain - Discharge Information *PRESCRIPTION DRUG MONITORING PROGRAM REVIEWED*: Yes *COPY OF PRESCRIPTION DRUG MONITORING REPORT IN PATIENT DAXA: No Prescriptions: Acetaminophen/HYDROcodone [Rembert 325-5 MG] 1 tab PO Q6H PRN #12 tablet PRN Reason: Pain Instructions: Back Injury Prevention, [id number] Referrals: PCP,None [Primary Care Provider] - Forms: ED Department Discharge Additional Instructions: You have been evaluated in the ED for your continuing back pain. You had a chest x-ray, and lab work done last night, that demonstrate no pulmonary embolus or fracture apparent. No further lab work or imaging was done at today's visit. It is likely that this could be a subluxed rib head, or a rib head that is popped out of place, I would refer you to a chiropractor, for an adjustment to see if this does not help some of the pain relief. Please use ice/heat as tolerated to the affected area. You may take ibuprofen 600mg q6 hrs for pain relief. Please do so until you have a tolerable level of pain with activity. Do not exceed 3200mg ibuprofen in a 24 hour time period. You were given a prescription for a strong pain medication, hydrocodone/ acetaminophen 5/325mg, please take 1 tab every 6 hours as needed for pain not relieved by Tylenol or ibuprofen alone. Please note this medication does contain Tylenol in it, so do not take more than 4000 mg in a 24-hour time span. These medications can be addictive, so please take as few as possible to achieve adequate pain control. These meds can also be quite constipating, recommend that you increase your oral fluid intake and take a stool softener like MiraLAX while taking these medications. Do not drive while taking this medication. Recommend you follow-up with a primary care provider of choice, our clinic number [phone], any family practice provider would be able to help you with this. Please return to ED if your symptoms should change or worsen. Sepsis Event Note - Evaluation Sepsis Screening Result: No Definite Risk - Focused Exam Vital Signs: Vital Signs Temp Pulse Resp BP Pulse Ox 05/29/20 10:18 97.3 F 107 H 18 127/86 98 Date Exam was Performed: 02/15/20 Time Exam was Performed: 12:37
== END 2020-02-15 13:15 | disposition home or self-care (01) ==
LOC: JD.ED 10:04
DX: M54.6 Pain in thoracic spine (principal); K21.9 Gastro-esophageal reflux disease without esophagitis; E66.9 Obesity, unspecified; I10 Essential (primary) hypertension; Z68.29 Body mass index [BMI] 29.0-29.9, adult; Z88.6 Allergy status to analgesic agent; Z91.040 Latex allergy status
CPT/HCPCS: 99283; A9270

== ENCOUNTER 2020-03-21 14:49 | Emergency (ER) | payer MEDICAID ==
[2020-03-21 15:09] VITALS: BP 102/76; PULSE 102
--- NOTE | 2020-03-21 15:10 | EDM.PDOC ---
ED HPI GENERAL MEDICAL PROBLEM - General Chief Complaint: General Stated Complaint: R SIDE BODILY INJURIES/FALL Time Seen by Provider: 03/21/20 15:08 Source of Information: Reports: Patient History Limitations: Reports: No Limitations - History of Present Illness INITIAL COMMENTS - FREE TEXT/NARRATIVE: pt had same level slip and fall this morning in the shower and fell onto her R upper back and reports she has had pain ever since, pain is to her r upper back worse with ROM or deep inspiration, took tylenol at home with no improvement in symptoms, no SOB, no fever, no chills, no other injuries, no LOC - Related Data Allergies Allergy/AdvReac Type Severity Reaction Status Date / Time ketorolac [From Toradol] Allergy Headache Verified 02/15/20 10:22 latex Allergy Rash Verified 02/15/20 10:22 Home Meds: Home Meds SUMAtriptan succinate [Imitrex] 100 mg PO ASDIRECTED PRN #15 tablet 08/28/17 [R x] Omeprazole 20 mg PO DAILY 04/14/19 [History] traZODone HCl [Trazodone HCl] 100 mg PO BEDTIME 07/01/19 [History] lisinopriL [Lisinopril] 20 mg PO DAILY 07/29/19 [History] Orphenadrine [Norflex] 1 tab PO Q12H PRN #14 tab.er 02/14/20 [Rx] Phentermine HCl 37.5 mg PO DAILY 02/14/20 [History] Acetaminophen/HYDROcodone [[place] 325-5 MG] 1 tab PO Q6H PRN #12 tablet 02/15/20 [Rx] predniSONE [Prednisone] 20 mg PO DAILY 02/15/20 [History] Past Medical History Cardiovascular History: Reports: Hypertension Respiratory History: Reports: None Gastrointestinal History: Reports: GERD 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 Musculoskeletal History: Reports: Fracture (rib fracture) Other Musculoskeletal History: "TUMMY TUCK" 4 YEARS AGO Neurological History: Reports: Migraines Psychiatric History: Reports: Addiction (of opioids) Endocrine/Metabolic History: Reports: Obesity/BMI 30+ Oncologic (Cancer) History: Reports: None Dermatologic History: Reports: Other (See Below) Other Dermatologic History: lipoma - Infectious Disease History Infectious Disease History: Reports: None - Past Surgical History HEENT Surgical History: Reports: Oral Surgery, Tonsillectomy GI Surgical History: Reports: Appendectomy, Cholecystectomy Female Surgical History: Reports: Section, Hysterectomy Neurological Surgical History: Reports: C-Spine Musculoskeletal Surgical History: Reports: Arthroscopic Knee, ORIF Dermatological Surgical History: Reports: Plastic Surgical Reconstruction/Repair, Other (See Below) Social & Family History - Family History Family Medical History: Noncontributory - Caffeine Use Caffeine Use: Reports: Soda Other Caffeine Use: mountain dew 3 cans daily - Living Situation & Occupation Living situation: Reports: , with Family (Brother) Occupation: Employed ([employer]) ED ROS GENERAL - Review of Systems Review Of Systems: See Below Constitutional: Denies: Fever, Chills HEENT: Denies: Contact Lenses, Dental Pain Musculoskeletal: Reports: Back Pain Neurological: Denies: Confusion, Dizziness ED EXAM, GENERAL - Physical Exam Exam: See Below Exam Limited By: No Limitations General Appearance: Alert, WD/WN, Mild Distress Nose: Normal Inspection, Normal Mucosa, No Blood Throat/Mouth: Normal Inspection, Normal Lips, Normal Teeth, Normal Gums, Normal Oropharynx, Normal Voice, No Airway Compromise Head: Atraumatic, Normocephalic Neck: Normal Inspection, Supple, Non-Tender, Full Range of Motion Respiratory/Chest: No Respiratory Distress, Lungs Clear, Normal Breath Sounds, No Accessory Muscle Use, Chest Non-Tender Cardiovascular: Normal Peripheral Pulses, Regular Rate, Rhythm, No Edema, No Gallop, No JVD, No Murmur, No Rub GI/Abdominal: Normal Bowel Sounds, Soft, Non-Tender, No Organomegaly, No Distention, No Abnormal Bruit, No Mass Back Exam: Other (moderate tenderness R upper back, no ecchymosis, no erythema, tender along R scapula and paraspinal muscles no verebral tenderness) Extremities: Normal Inspection, Normal Range of Motion, Non-Tender, Normal Capillary Refill, No Pedal Edema Neurological: Alert, Oriented, CN II-XII Intact, Normal Cognition, Normal Gait, Normal Reflexes, No Motor/Sensory Deficits Course - Vital Signs Last Recorded V/S: Last Vital Signs Temp 97.2 F 03/21/20 15:02 Pulse 102 H 03/21/20 15:02 Resp 16 03/21/20 15:02 BP 102/76 03/21/20 15:02 Pulse Ox 96 03/21/20 15:02 - Orders/Labs/Meds Orders: Active Orders 24 hr Category Date Time Status Chest 2V [CR] Stat Exams 03/21/20 15:07 Taken - Re-Assessments/Exams Free Text/Narrative Re-Assessment/Exam: 03/21/20 15:18 CXR --> interp by me nad Free Text/Narrative Re-Assessment/Exam: 03/21/20 15:18 no evidence of acute process, will discharge to home tylenol for pain, return for any worsening condition Departure - Departure Time of Disposition: 15:19 Disposition: Home, Self-Care 01 Condition: Good Clinical Impression: Back contusion Qualifiers: Encounter type: initial encounter Laterality: right Qualified Code(s): S20.221A - Contusion of right back wall of thorax, initial encounter - Discharge Information *PRESCRIPTION DRUG MONITORING PROGRAM REVIEWED*: Yes *COPY OF PRESCRIPTION DRUG MONITORING REPORT IN PATIENT DAXA: No Referrals: PCP,None [Primary Care Provider] - Forms: ED Department Discharge Additional Instructions: Home, Rest, Ice pack 20 minutes at a time 3-4 times daily, tylenol as needed for pain, return as needed for worsening condition Sepsis Event Note (ED) - Focused Exam Vital Signs: Vital Signs Temp Pulse Resp BP Pulse Ox 03/21/20 15:02 97.2 F 102 H 16 102/76 96 - My Orders Last 24 Hours: My Active Orders 03/21/20 15:07 Chest 2V [CR] Stat - Assessment/Plan Last 24 Hours: My Active Orders 03/21/20 15:07 Chest 2V [CR] Stat
--- NOTE | 2020-03-21 15:30 | CR ---
Chest: 2 views of the chest were obtained. Comparison: Prior chest x-ray of 02/14/20. Heart size and mediastinum are normal. Lungs are clear with no acute parenchymal change. Bony structures are unremarkable. Surgical clips are seen from prior cholecystectomy. Prior cervical spine surgery is noted. Minimal scoliosis is present within the spine with mild degenerative change scattered within the thoracic spine. Impression: 1. Findings as noted above. 2. Nothing acute is seen on 2 view chest x-ray. Diagnostic code #2 This report was dictated in MDT
== END 2020-03-21 15:25 | disposition home or self-care (01) ==
LOC: JD.ED 14:49
DX: S20.221A Contusion of right back wall of thorax, initial encounter (principal); I10 Essential (primary) hypertension; K21.9 Gastro-esophageal reflux disease without esophagitis; G43.909 Migraine, unspecified, not intractable, without status migrainosus; E66.9 Obesity, unspecified; Z68.29 Body mass index [BMI] 29.0-29.9, adult; Z88.6 Allergy status to analgesic agent; Z91.040 Latex allergy status; Z79.899 Other long term (current) drug therapy; W01.0XXA Fall on same level from slipping, tripping and stumbling without subsequent striking against object, initial encounter
CPT/HCPCS: 71046; 71046-26; 99282; 99283-25

== ENCOUNTER 2020-05-03 13:23 | Emergency (ER) | payer MEDICAID ==
[2020-05-03 13:45] VITALS: BP 130/98; PULSE 112
--- NOTE | 2020-05-03 14:30 | EDM.PDOC ---
<Kishan Dixon - Last Filed: 05/03/20 15:00> ED HPI GENERAL MEDICAL PROBLEM - General Chief Complaint: Back Pain or Injury Stated Complaint: BACK PAIN Time Seen by Provider: 05/03/20 13:37 - History of Present Illness INITIAL COMMENTS - FREE TEXT/NARRATIVE: Patient comes to the ER today with a 2 day complaint of lower thoracic and upper lumbar back pain. Pt states that she was moving a large cooler out of her garage that she claims weighed around 75 pounds. Pt first attempted to lift the coolers, both using her legs then tried bending using her back muscles, but the cooler as to heavy. Pt then pulled the cooler out about 50 feet and emptied it out. While cleaning out the cooler pt began to notice a developing a stabbing and aching pain in her lower back which radiated throughout her spinal column. Pt has taken both ibuprofen and Tylenol as well as Flexeril and Norflex which she already had at home. Pt claims to only receive minimal relief and pain has persisted. Patient also has complaints of what she calls Lupus flare up. Pt was seen by an ENT in 2017 that diagnosed her with possible Lupus. A a follow up with a different provider, the provider did not feel that this was Lupus but some kind of connective tissue disease.The name of the disease she did not remember. Pt does have an appointment with a it security consulting director on May 20 for follow up on this condition and is not chief concern at this time. 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 Treatments, NSAIDS Back Pain Score (Numeric/FACES): 8 - Related Data Allergies Allergy/AdvReac Type Severity Reaction Status Date / Time ketorolac [From Toradol] Allergy Headache Verified 05/03/20 13:45 latex Allergy Rash Verified 05/03/20 13:45 Home Meds: Home Meds SUMAtriptan succinate [Imitrex] 100 mg PO ASDIRECTED PRN #15 tablet 08/28/17 [Rx] Omeprazole 20 mg PO DAILY 04/14/19 [History] traZODone HCl [Trazodone HCl] 100 mg PO BEDTIME 07/01/19 [History] lisinopriL [Lisinopril] 20 mg PO DAILY 07/29/19 [History] Orphenadrine [Norflex] 1 tab PO Q12H PRN #14 tab.er 02/14/20 [Rx] Phentermine HCl 37.5 mg PO DAILY 02/14/20 [History] predniSONE [Prednisone] 20 mg PO DAILY 02/15/20 [History] Acetaminophen/oxyCODONE [Percocet 325-5 MG] 1 each PO Q6H PRN #12 tab 05/03/20 [Rx] predniSONE 20 mg PO ASDIRECTED #15 tab 05/03/20 [Rx] Past Medical History Cardiovascular History: Reports: Hypertension Respiratory History: Reports: None Gastrointestinal History: Reports: GERD 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 Musculoskeletal History: Reports: Fracture Other Musculoskeletal History: "TUMMY TUCK" 4 YEARS AGO Neurological History: Reports: Migraines Psychiatric History: Reports: Addiction Endocrine/Metabolic History: Reports: Obesity/BMI 30+ Hematologic History: Reports: None Immunologic History: Reports: None Oncologic (Cancer) History: Reports: None Dermatologic History: Reports: Other (See Below) Other Dermatologic History: lipoma - Infectious Disease History Infectious Disease History: Reports: None - Past Surgical History HEENT Surgical History: Reports: Oral Surgery, Tonsillectomy GI Surgical History: Reports: Appendectomy, Cholecystectomy Female Surgical History: Reports: Section, Hysterectomy Neurological Surgical History: Reports: C-Spine Musculoskeletal Surgical History: Reports: Arthroscopic Knee, ORIF Dermatological Surgical History: Reports: Plastic Surgical Reconstruction/Repair, Other (See Below) Social & Family History - Family History Family Medical History: Noncontributory - Tobacco Use Smoking Status *Q: Never Smoker - Caffeine Use Caffeine Use: Reports: None Other Caffeine Use: mountain dew 3 cans daily - Living Situation & Occupation Living situation: Reports: , with Family (Brother) Occupation: Employed ([employer]) ED [facility] GENER[facility] - Review of Systems Review Of Systems: See Below Constitutional: Reports: No Symptoms. Denies: Weakness HEENT: Reports: No Symptoms Respiratory: Reports: No Symptoms Cardiovascular: Reports: No Symptoms Endocrine: Reports: No Symptoms GI/Abdominal: Reports: No Symptoms : Reports: No Symptoms Musculoskeletal: Reports: Back Pain (See HPI) Skin: Reports: Erythema (Light diffused redness to bilateral upper and lower extremities.) Neurological: Reports: No Symptoms Psychiatric: Reports: No Symptoms Hematologic/Lymphatic: Reports: No Symptoms Immunologic: Reports: No Symptoms ED EXAM,LOWER BACK PAIN/INJURY - Physical Exam Exam: See Below General Appearance: Alert, WD/WN, No Apparent Distress Ears: Normal External Exam, Normal Canal, Hearing Grossly Normal, Normal TMs Nose: Normal Inspection, Normal Mucosa, No Blood Throat/Mouth: Normal Inspection, Normal Lips, Normal Teeth, Normal Gums, Normal Oropharynx, Normal Voice, No Airway Compromise Head: Atraumatic, Normocephalic Neck: Normal Inspection, Supple, Non-Tender, Full Range of Motion Respiratory/Chest: No Respiratory Distress, Lungs Clear, Normal Breath Sounds, No Accessory Muscle Use, Chest Non-Tender Cardiovascular: Normal Peripheral Pulses (Female) Exam: Deferred Rectal (Female) Exam: Deferred Back Exam: Decreased Range of Motion (decreased flexion, extension, twisting at waste, and side bending), Paraspinal Tenderness, Vertebral Tenderness (Tenderness over T11-12 and L1-3) Extremities: Pedal Edema (1+ edema noted to BLE at the ankle and foot) Neurological: Alert, Normal Mood/Affect, CN II-XII Intact, Oriented x 3 Psychiatric: Normal Affect, Normal Mood Skin Exam: Erythema (Light diffused erythema to extremities) Departure - Departure Disposition: Home, Self-Care 01 Clinical Impression: Back pain Qualifiers: Back pain location: low back pain Chronicity: acute Back pain laterality: bilateral Sciatica presence: without sciatica Qualified Code(s): M54.5 - Low back pain - Discharge Information Prescriptions: Acetaminophen/oxyCODONE [Percocet 325-5 MG] 1 each PO Q6H PRN #12 tab PRN Reason: Pain predniSONE 20 mg PO ASDIRECTED #15 tab Instructions: Pain Medicine Instructions, [id number], Back Injury Prevention Referrals: PCP,None [Primary Care Provider] - Forms: ED Department Discharge Additional Instructions: You have been evaluated in the ED for your back pain/injury. Please use ice/heat as tolerated to the affected area. You may take Tylenol 500 mg or ibuprofen 600mg q6 hrs for pain relief. Please do so until you have a tolerable level of pain with activity. Do not exceed 4000mg Tylenol or 3200mg ibuprofen in a 24 hour time period. You were given a prescription for a strong pain medication, oxycodone/acetaminophen 5/325 mg, please take 1 tab every 6 hours as needed for pain not relieved by Tylenol or ibuprofen alone. Please note this medication does contain Tylenol in it, so do not take more than 4000 mg in a 24-hour time span. These medications can be addictive, so please take as few as possible to achieve adequate pain control. These meds can also be quite constipating, recommend that you increase your oral fluid intake and take a stool softener like MiraLAX while taking these medications. Do not drive while taking this medication. You are also given a prescription for prednisone, an anti-inflammatory. Please take as directed for further inflammation relief. You may continue to take the muscle relaxers you have at home, as needed for further muscle spasms. You should follow-up with your regular care provider, sometime within the next week, to make sure that everything is getting better as expected. Please return to ED if your symptoms should change or worsen. Sepsis Event Note (ED) - Evaluation Sepsis Screening Result: No Definite Risk <Magda Vu V - Last Filed: 05/03/20 15:16> Course - Vital Signs Last Recorded V/S: Last Vital Signs Temp 97.8 F 05/03/20 13:36 Pulse 112 H 05/03/20 13:36 Resp 16 05/03/20 13:36 BP 130/98 H 05/03/20 13:36 Pulse Ox 98 05/03/20 13:36 - Re-Assessments/Exams Free Text/Narrative Re-Assessment/Exam: 05/03/20 15:12 The patient presents to the ED for her back injury. I have read and reviewed the student's HPI and examined the patient and agree with Waqas Dixon NP- student. Patient is complaining mostly of pain. We will get her on a course of prednisone and give her a few tablets of Percocet for management of her back pain. She states that she gets headache from tramadol, she has already been taking Tylenol and ibuprofen. Departure - Departure Time of Disposition: 15:14 Condition: Good - Discharge Information *PRESCRIPTION DRUG MONITORING PROGRAM REVIEWED*: Yes *COPY OF PRESCRIPTION DRUG MONITORING REPORT IN PATIENT DAXA: No Sepsis Event Note (ED) - Focused Exam Vital Signs: Vital Signs Temp Pulse Resp BP Pulse Ox 05/03/20 13:36 97.8 F 112 H 16 130/98 H 98
== END 2020-05-03 15:28 | disposition home or self-care (01) ==
LOC: JD.ED 13:23
DX: M54.5 Low back pain (principal); K21.9 Gastro-esophageal reflux disease without esophagitis; E66.9 Obesity, unspecified; I10 Essential (primary) hypertension; Z88.6 Allergy status to analgesic agent; Z91.040 Latex allergy status; Z79.899 Other long term (current) drug therapy
CPT/HCPCS: 99283

== ENCOUNTER 2020-06-29 15:42 | Emergency (ER) | payer MEDICAID ==
[2020-06-29 16:05] VITALS: BP 124/99; PULSE 110
[2020-06-29] MEDS ORDERED: HYDROmorphone 1 MG/ML Syringe IM ONE (16:28)
[2020-06-29] MEDS ORDERED: predniSONE 10 MG Tab PO ONE (16:29)
--- NOTE | 2020-06-29 16:37 | EDM.PDOC ---
ED HPI GENERAL MEDICAL PROBLEM - General Chief Complaint: Back Pain or Injury Stated Complaint: LOW BACK SPINE AND RT LEG PAIN Time Seen by Provider: 06/29/20 16:04 Source of Information: Reports: Patient History Limitations: Reports: No Limitations - History of Present Illness INITIAL COMMENTS - FREE TEXT/NARRATIVE: Patient is a 50-year-old female presenting to the emergency department with complaints of low back pain that radiates down her right leg. Symptoms started a couple weeks ago but have worsened over the last 3 days. She denies any recent injuries or falls. States she does have a history of chronic low back pain, but states that this is different She has intermittent numbness and tingling of her right foot as well as pain in her right thigh. She has been using [id number] Tylenol and ibuprofen with little relief. Her primary care provider, Renetta Pruitt, is out of the office, however she does have a preop appointment with her scheduled on 07 July. She denies any bowel or bladder dysfunction. Right Lower Back Pain Score (Numeric/FACES): 8 - Related Data Allergies Allergy/AdvReac Type Severity Reaction Status Date / Time ketorolac [From Toradol] Allergy Headache Verified 06/29/20 16:05 latex Allergy Rash Verified 06/29/20 16:05 Home Meds: Home Meds SUMAtriptan succinate [Imitrex] 100 mg PO ASDIRECTED PRN #15 tablet 08/28/17 [Rx] Omeprazole 20 mg PO DAILY 04/14/19 [History] traZODone HCl [Trazodone HCl] 100 mg PO BEDTIME 07/01/19 [History] lisinopriL [Lisinopril] 20 mg PO DAILY 07/29/19 [History] Orphenadrine [Norflex] 1 tab PO Q12H PRN #14 tab.er 02/14/20 [Rx] Phentermine HCl 37.5 mg PO DAILY 02/14/20 [History] predniSONE [Prednisone] 20 mg PO DAILY 02/15/20 [History] Acetaminophen/oxyCODONE [Percocet 325-5 MG] 1 each PO Q6H PRN #12 tab 05/03/20 [Rx] predniSONE 20 mg PO ASDIRECTED #15 tab 05/03/20 [Rx] Acetaminophen/HYDROcodone [Stratford 325-5 MG] 1 tab PO Q4H PRN #10 tablet 10/11/20 [Rx] predniSONE [Prednisone] 50 mg PO DAILY 4 Days #4 tablet 06/29/20 [Rx] Past Medical History Cardiovascular History: Reports: Hypertension Respiratory History: Reports: None Gastrointestinal History: Reports: GERD 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 Musculoskeletal History: Reports: Fracture Other Musculoskeletal History: "TUMMY TUCK" 4 YEARS AGO Neurological History: Reports: Migraines Psychiatric History: Reports: Addiction Endocrine/Metabolic History: Reports: Obesity/BMI 30+ Hematologic History: Reports: None Immunologic History: Reports: None Oncologic (Cancer) History: Reports: None Dermatologic History: Reports: Other (See Below) Other Dermatologic History: lipoma - Infectious Disease History Infectious Disease History: Reports: None - Past Surgical History HEENT Surgical History: Reports: Oral Surgery, Tonsillectomy GI Surgical History: Reports: Appendectomy, Cholecystectomy Female Surgical History: Reports: Section, Hysterectomy Neurological Surgical History: Reports: C-Spine Musculoskeletal Surgical History: Reports: Arthroscopic Knee, ORIF Dermatological Surgical History: Reports: Plastic Surgical Reconstruction/Repair, Other (See Below) Social & Family History - Family History Family Medical History: Noncontributory - Tobacco Use Tobacco Use Status *Q: Never Tobacco User Second Hand Smoke Exposure: No - Caffeine Use Caffeine Use: Reports: None Other Caffeine Use: mountain dew 3 cans daily - Recreational Drug Use Recreational Drug Use: No - Living Situation & Occupation Living situation: Reports: , with Family (Brother) Occupation: Employed ([employer]) ED ROS GENERAL - Review of Systems Review Of Systems: See Below Constitutional: Reports: No Symptoms. Denies: Fever, Chills HEENT: Reports: No Symptoms Respiratory: Reports: No Symptoms Cardiovascular: Reports: No Symptoms Endocrine: Reports: No Symptoms GI/Abdominal: Reports: No Symptoms : Reports: No Symptoms Musculoskeletal: Reports: Back Pain (Low back pain radiating down the right leg.) Skin: Reports: No Symptoms Neurological: Reports: Numbness (Intermittent numbness and tingling of the right foot) Psychiatric: Reports: No Symptoms Hematologic/Lymphatic: Reports: No Symptoms ED EXAM,LOWER BACK PAIN/INJURY - Physical Exam Exam: See Below General Appearance: Alert, WD/WN, No Apparent Distress Respiratory/Chest: No Respiratory Distress, Lungs Clear, Normal Breath Sounds, No Accessory Muscle Use, Chest Non-Tender Cardiovascular: Normal Peripheral Pulses, Regular Rate, Rhythm, No Edema, No Gallop, No JVD, No Murmur, No Rub GI/Abdominal: Normal Bowel Sounds, Soft, Non-Tender, No Organomegaly, No Distention, No Abnormal Bruit, No Mass Back Exam: Normal Inspection, Paraspinal Tenderness (Right side of T12 down into the SI joint.), Vertebral Tenderness (T12-S1) Extremities: Normal Inspection, Normal Range of Motion, Non-Tender, No Pedal Edema, Normal Capillary Refill Neurological: Alert, Normal Mood/Affect, Normal Dorsiflexion, CN II-XII Intact, Normal Plantar Flexion, Normal Reflexes, No Motor/Sensory Deficits, Oriented x 3 Psychiatric: Normal Affect, Normal Mood Skin Exam: Warm, Dry, Intact, Normal Color, No Rash Course - Vital Signs Last Recorded V/S: Last Vital Signs Temp 97.4 F 06/29/20 16:03 Pulse 110 H 06/29/20 16:03 Resp 16 06/29/20 16:03 BP 124/99 H 06/29/20 16:03 Pulse Ox 97 06/29/20 16:03 - Orders/Labs/Meds Meds: Medications Discontinued Medications Generic Name Dose Route Start Last Admin Trade Name Freq PRN Reason Stop Dose Admin Hydromorphone HCl 1 mg 06/29/20 16:28 06/29/20 16:45 Dilaudid IM 06/29/20 16:29 1 mg ONETIME ONE Administration Prednisone 40 mg 06/29/20 16:29 06/29/20 16:46 Prednisone PO 06/29/20 16:30 40 mg ONETIME ONE Administration - Re-Assessments/Exams Free Text/Narrative Re-Assessment/Exam: 06/29/20 17:14 Xray of the lumbar spine was negative for any acute abnormalities. Did show degenerative changes. Patient is feeling much better after the Dilaudid and prednisone. Discussed that she should follow-up in the clinic with her primary care provider to discuss ongoing management including the possibility of an MRI or physical therapy. Recommend routine tylenol. I will send a prescription for a short course of Stratford as well as prednisone. Discharge instructions as documented. Departure - Departure Time of Disposition: 17:17 Disposition: Home, Self-Care 01 Condition: Good Clinical Impression: Low back pain Qualifiers: Chronicity: acute Back pain laterality: bilateral Sciatica presence: without sciatica Qualified Code(s): M54.5 - Low back pain - Discharge Information *PRESCRIPTION DRUG MONITORING PROGRAM REVIEWED*: No *COPY OF PRESCRIPTION DRUG MONITORING REPORT IN PATIENT DAXA: No Prescriptions: Acetaminophen/HYDROcodone [Stratford 325-5 MG] 1 tab PO Q4H PRN #10 tablet PRN Reason: Pain predniSONE [Prednisone] 50 mg PO DAILY 4 Days #4 tablet Instructions: Acute Back Pain, Adult Referrals: PCP,None [Primary Care Provider] - Forms: ED Department Discharge Additional Instructions: Was seen in the emergency department today for low back pain radiating down your right leg. While in the ER, you received an injection of Dilaudid, a dose of prednisone, and an x-ray of your lumbar spine. X-ray lumbar spine was negative for any acute abnormalities but did show degenerative changes. The medications given did improve your symptoms. Recommend routine Tylenol. A prescription for short course of Stratford has been sent in addition to prednisone. Uses medications as prescribed. If you do use the Stratford, do not work or drive for 12 hours after taking it as it can be sedating. Recommend that you call tomorrow morning to set up an appointment in the clinic to discuss your low back pain as well as the possibility of an MRI if they feel indicated. Return to the ER as needed. Sepsis Event Note (ED) - Evaluation Sepsis Screening Result: No Definite Risk
== END 2020-06-29 17:30 | disposition home or self-care (01) ==
LOC: JD.ED 15:42
DX: M54.5 Low back pain (principal); I10 Essential (primary) hypertension; K21.9 Gastro-esophageal reflux disease without esophagitis; E66.9 Obesity, unspecified; Z91.040 Latex allergy status; Z88.6 Allergy status to analgesic agent; Z79.899 Other long term (current) drug therapy; Z90.49 Acquired absence of other specified parts of digestive tract; Z90.710 Acquired absence of both cervix and uterus; Z68.29 Body mass index [BMI] 29.0-29.9, adult
CPT/HCPCS: 72100; 96372; 99283; J1170; J7512

== ENCOUNTER 2020-07-13 12:20 | Emergency (ER) | payer MEDICAID ==
[2020-07-13 12:29] VITALS: BP 129/93; PULSE 113
--- NOTE | 2020-07-13 13:06 | EDM.PDOC ---
ED HPI GENERAL MEDICAL PROBLEM - General Chief Complaint: Lower Extremity Injury/Pain Stated Complaint: R LEG PAIN Time Seen by Provider: 07/13/20 12:38 Source of Information: Reports: Patient History Limitations: Reports: No Limitations - History of Present Illness INITIAL COMMENTS - FREE TEXT/NARRATIVE: The patient presents with right low back to right leg pain. This has been going on for weeks. She was seen her and had x-rays done that showed scoliosis and she was told to follow up with her primary to get an MRI. She had a preop appointment with her primary and they could not get the MRI ordered at that time. She has some tingling in her toes at times. She has no fever, chills, cough, congestion, runny nose, chest pain or shortness of breath. She has no numbness or weakness in her legs and no bowel or bladder problems. Onset: Gradual Duration: Week(s): Location: Reports: Back, Upper Extremity, Right Quality: Reports: Sharp Severity: Severe Improves with: Reports: None Worsens with: Reports: None Associated Symptoms: Reports: No Other Symptoms Right Leg Pain Score (Numeric/FACES): 8 - Related Data Allergies Allergy/AdvReac Type Severity Reaction Status Date / Time ketorolac [From Toradol] Allergy Headache Verified 07/13/20 12:29 latex Allergy Rash Verified 07/13/20 12:29 Home Meds: Home Meds SUMAtriptan succinate [Imitrex] 100 mg PO ASDIRECTED PRN #15 tablet 08/28/17 [Rx] Omeprazole 20 mg PO DAILY 04/14/19 [History] traZODone HCl [Trazodone HCl] 100 mg PO BEDTIME 07/01/19 [History] lisinopriL [Lisinopril] 20 mg PO DAILY 07/29/19 [History] Orphenadrine [Norflex] 1 tab PO Q12H PRN #14 tab.er 02/14/20 [Rx] Phentermine HCl 37.5 mg PO DAILY 02/14/20 [History] predniSONE [Prednisone] 20 mg PO DAILY 02/15/20 [History] Acetaminophen/oxyCODONE [Percocet 325-5 MG] 1 each PO Q6H PRN #12 tab 05/03/20 [Rx] predniSONE 20 mg PO ASDIRECTED #15 tab 05/03/20 [Rx] Acetaminophen/HYDROcodone [[place]akford 325-5 MG] 1 tab PO Q4H PRN #10 tablet 06/29/20 [Rx] predniSONE [Prednisone] 50 mg PO DAILY 4 Days #4 tablet 06/29/20 [Rx] Cyclobenzaprine [Flexeril] 10 mg PO TID PRN #20 tab 07/13/20 [Rx] oxyCODONE HCl/Acetaminophen [Percocet 5-325 mg Tablet] 1 - 2 each PO Q6HR PRN #10 tablet 07/13/20 [Rx] Past Medical History Cardiovascular History: Reports: Hypertension Respiratory History: Reports: None Gastrointestinal History: Reports: GERD 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 Musculoskeletal History: Reports: Fracture Other Musculoskeletal History: "TUMMY TUCK" 4 YEARS AGO Neurological History: Reports: Migraines Psychiatric History: Reports: Addiction Endocrine/Metabolic History: Reports: Obesity/BMI 30+ Hematologic History: Reports: None Immunologic History: Reports: None Oncologic (Cancer) History: Reports: None Dermatologic History: Reports: Other (See Below) Other Dermatologic History: lipoma - Infectious Disease History Infectious Disease History: Reports: None - Past Surgical History HEENT Surgical History: Reports: Oral Surgery, Tonsillectomy GI Surgical History: Reports: Appendectomy, Cholecystectomy Female Surgical History: Reports: Section, Hysterectomy Neurological Surgical History: Reports: C-Spine Musculoskeletal Surgical History: Reports: Arthroscopic Knee, ORIF Dermatological Surgical History: Reports: Plastic Surgical Reconstruction/Repair, Other (See Below) Social & Family History - Family History Family Medical History: Noncontributory - Tobacco Use Tobacco Use Status *Q: Never Tobacco User Second Hand Smoke Exposure: No - Caffeine Use Caffeine Use: Reports: None Other Caffeine Use: mountain dew 3 cans daily - Recreational Drug Use Recreational Drug Use: No - Living Situation & Occupation Living situation: Reports: , with Family (Brother) Occupation: Employed ([employer]) Review of Systems - Review of Systems Review Of Systems: See Below Constitutional: Reports: No Symptoms Eyes: Reports: No Symptoms Ears: Reports: No Symptoms Nose: Reports: No Symptoms Mouth/Throat: Reports: No Symptoms Respiratory: Reports: No Symptoms Cardiovascular: Reports: No Symptoms GI/Abdominal: Reports: No Symptoms Genitourinary: Reports: No Symptoms Musculoskeletal: Reports: Back Pain ED EXAM, GENERAL - Physical Exam Exam: See Below Exam Limited By: No Limitations General Appearance: Alert, No Apparent Distress Ears: Normal External Exam Nose: Normal Inspection Head: Atraumatic, Normocephalic Neck: Normal Inspection Respiratory/Chest: No Respiratory Distress, Lungs Clear, Normal Breath Sounds Cardiovascular: Regular Rate, Rhythm, No Edema, No Murmur GI/Abdominal: Soft, Non-Tender, No Organomegaly, No Mass Back Exam: Other (right lower back tenderness) Extremities: Normal Inspection Course - Vital Signs Last Recorded V/S: Last Vital Signs Temp 97 F 07/13/20 12:26 Pulse 113 H 07/13/20 12:26 Resp 16 07/13/20 12:26 BP 129/93 H 07/13/20 12:26 Pulse Ox 95 07/13/20 12:26 - Re-Assessments/Exams Free Text/Narrative Re-Assessment/Exam: 07/13/20 13:03 I will order an outpatient MRI and something for pain. Departure - Departure Time of Disposition: 13:05 Disposition: Home, Self-Care 01 Condition: Good Clinical Impression: Lumbago with sciatica, right side Qualifiers: Chronicity: acute Back pain laterality: right Qualified Code(s): M54.41 - Lumbago with sciatica, right side - Discharge Information *PRESCRIPTION DRUG MONITORING PROGRAM REVIEWED*: No *COPY OF PRESCRIPTION DRUG MONITORING REPORT IN PATIENT DAXA: No Prescriptions: Cyclobenzaprine [Flexeril] 10 mg PO TID PRN #20 tab PRN Reason: Pain oxyCODONE HCl/Acetaminophen [Percocet 5-325 mg Tablet] 1 - 2 each PO Q6HR PRN #10 tablet PRN Reason: Pain Referrals: PCP,None [Primary Care Provider] - Cuate Cali MD [Ordering Only Provider] - 1 Week Additional Instructions: Take tylenol or motrin for pain. If that does not help you can try the flexeril and percocet. Try ice or heat which ever one feels better. Someone from radiology will call you from radiology. Please return if you are worse. Sepsis Event Note (ED) - Evaluation Sepsis Screening Result: No Definite Risk - Focused Exam Vital Signs: Vital Signs Temp Pulse Resp BP Pulse Ox 07/13/20 12:26 97 F 113 H 16 129/93 H 95
== END 2020-07-13 13:18 | disposition home or self-care (01) ==
LOC: JD.ED 12:20
DX: M54.41 Lumbago with sciatica, right side (principal); I10 Essential (primary) hypertension; K21.9 Gastro-esophageal reflux disease without esophagitis; E66.9 Obesity, unspecified; Z79.899 Other long term (current) drug therapy; Z88.6 Allergy status to analgesic agent; Z91.040 Latex allergy status
CPT/HCPCS: 99283; 99284

== ENCOUNTER 2020-07-30 19:33 | Emergency (ER) | payer MEDICAID ==
[2020-07-30 19:53] VITALS: BP 127/91; PULSE 87
--- NOTE | 2020-07-30 20:49 | EDM.PDOC ---
ED HPI GENERAL MEDICAL PROBLEM - General Chief Complaint: Upper Extremity Injury/Pain Stated Complaint: INJURED SURGERY ON RIGHT HAND Time Seen by Provider: 07/30/20 19:50 Source of Information: Reports: Patient, RN Notes Reviewed History Limitations: Reports: No Limitations - History of Present Illness INITIAL COMMENTS - FREE TEXT/NARRATIVE: Patient is a 50-year-old female presenting to the emergency department with complaints of pain to her right hand. She states that she was swinging her arm and hit her hand on the edge of a counter. She had a carpal tunnel release pat kb 2 weeks ago. She is concerned that she may have fractured a bone in her hand or disrupted the surgical site. She is complaining of pain pain throughout the hand since the time of the injury. She is has difficulty straightening her thumb. Surgery was completed by Dr. Berkowitz in [place]. Right Hand Pain Score (Numeric/FACES): 8 - Related Data Allergies Allergy/AdvReac Type Severity Reaction Status Date / Time ketorolac [From Toradol] Allergy Headache Verified 07/30/20 19:45 latex Allergy Rash Verified 07/30/20 19:45 Home Meds: Home Meds SUMAtriptan succinate [Imitrex] 100 mg PO ASDIRECTED PRN #15 tablet 08/28/17 [Rx] Omeprazole 20 mg PO DAILY 04/14/19 [History] traZODone HCl [Trazodone HCl] 100 mg PO BEDTIME 07/01/19 [History] Phentermine HCl 37.5 mg PO DAILY 02/14/20 [History] Past Medical History HEENT History: Reports: None Cardiovascular History: Reports: Hypertension Respiratory History: Reports: None Gastrointestinal History: Reports: GERD Genitourinary History: Reports: None 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 1 Musculoskeletal History: Reports: Fracture Other Musculoskeletal History: "TUMMY TUCK" 4 YEARS AGO Neurological History: Reports: Migraines Psychiatric History: Reports: Addiction Endocrine/Metabolic History: Reports: Obesity/BMI 30+ Hematologic History: Reports: None Immunologic History: Reports: None Oncologic (Cancer) History: Reports: None Dermatologic History: Reports: Other (See Below) Other Dermatologic History: lipoma - Infectious Disease History Infectious Disease History: Reports: None - Past Surgical History Head Surgeries/Procedures: Reports: None HEENT Surgical History: Reports: Oral Surgery, Tonsillectomy GI Surgical History: Reports: Appendectomy, Cholecystectomy Female Surgical History: Reports: Section, Hysterectomy Neurological Surgical History: Reports: C-Spine Musculoskeletal Surgical History: Reports: Arthroscopic Knee, Carpal Tunnel, ORIF Dermatological Surgical History: Reports: Plastic Surgical Reconstruction/Repair, Other (See Below) Social & Family History - Family History Family Medical History: No Pertinent Family History HEENT: Reports: None Cardiac: Reports: None GI: Reports: None : Reports: None OBGYN: Reports: None Musculoskeletal: Reports: None Neurological: Reports: None Psychiatric: Reports: None Endocrine/Metabolic: Reports: None Hematologic: Reports: None Immunologic: Reports: None Oncologic: Reports: None - Tobacco Use Tobacco Use Status *Q: Never Tobacco User - Caffeine Use Caffeine Use: Reports: Coffee Other Caffeine Use: mountain dew 3 cans daily - Recreational Drug Use Recreational Drug Use: No - Living Situation & Occupation Living situation: Reports: , with Family (Brother) Occupation: Employed ([employer]) Review of Systems - Review of Systems Review Of Systems: Comprehensive ROS is negative, except as noted in HPI. ED EXAM, GENERAL - Physical Exam Exam: See Below General Appearance: Alert, WD/WN, No Apparent Distress Respiratory/Chest: No Respiratory Distress, Lungs Clear, Normal Breath Sounds, No Accessory Muscle Use, Chest Non-Tender Cardiovascular: Normal Peripheral Pulses, Regular Rate, Rhythm, No Edema, No Gallop, No JVD, No Murmur, No Rub Extremities: Other (Tenderness to palpation throughout the proximal metacarpals as well as the thenar eminence of the right hand. Surgical incision is well approximated with no redness or drainage. No active bleeding.) Course - Vital Signs Last Recorded V/S: Last Vital Signs Temp 98.7 F 07/30/20 19:50 Pulse 87 07/30/20 19:50 Resp 16 07/30/20 19:50 BP 127/91 H 07/30/20 19:50 Pulse Ox 99 07/30/20 19:50 - Orders/Labs/Meds Orders: Active Orders 24 hr Category Date Time Status Hand Comp Min 3V Rt [CR] Stat Exams 07/30/20 20:08 Taken - Re-Assessments/Exams Free Text/Narrative Re-Assessment/Exam: Patient is a 50-year-old female presenting to the emergency department with complaints of pain to her right hand after hitting it on a counter. She states she had carpal tunnel release surgery [address] Nadia Lopez in [place]. She is concerned that she may have disrupted the surgical incision or fractured her hand. On exam, the incision is well approximated. There is no bleeding, redness, or drainage. She is tender to palpation throughout her metacarpals and thenar eminences. Ordered a x-ray of the right hand to rule out fracture. 07/30/20 20:46 X-ray of the right hand was negative for any acute fractures. This recommended that she contact Dr. Berkowitz tomorrow morning to ensure that he has no other concerns, however there appears to be no acute injuries to the hand. Recommend ice and elevation as well as Rene wrap as needed. Discharge instructions as documented. Departure - Departure Time of Disposition: 20:48 Disposition: Home, Self-Care 01 Condition: Good Clinical Impression: Hand contusion Qualifiers: Encounter type: initial encounter Laterality: right Qualified Code(s): S60.221A - Contusion of right hand, initial encounter - Discharge Information *PRESCRIPTION DRUG MONITORING PROGRAM REVIEWED*: No *COPY OF PRESCRIPTION DRUG MONITORING REPORT IN PATIENT DAXA: No Instructions: Hand Contusion Referrals: Cuate Cali MD [Primary Care Provider] - Additional Instructions: You were seen in the emergency department today for pain to your right hand after hitting it on a counter with a history of carpal tunnel surgery 2 weeks ago. X-rays were completed and found to show no acute fractures. As discussed, you likely aggravated the incision which will cause some increased swelling and pain. Recommend ice and elevation intermittently over the next few days. Continue to use ibuprofen as needed. You may also apply Rene wrap as needed. Recommend that you contact your surgeon tomorrow to let him know of this evening's occurrences and see if he has any further concerns or tests that he would like done. Return to the ER as needed. Sepsis Event Note (ED) - Evaluation Sepsis Screening Result: No Definite Risk - Focused Exam Vital Signs: Vital Signs Temp Pulse Resp BP Pulse Ox 07/30/20 19:50 98.7 F 87 16 127/91 H 99 - My Orders Last 24 Hours: My Active Orders 07/30/20 20:08 Hand Comp Min 3V Rt [CR] Stat - Assessment/Plan Last 24 Hours: My Active Orders 07/30/20 20:08 Hand Comp Min 3V Rt [CR] Stat
--- NOTE | 2020-07-31 08:42 | CR ---
PROCEDURE INFORMATION: Exam: XR Right Hand Exam date and time: 07/30/2020 8:13 PM Age: 50 years old Clinical indication: Pain; Right; Patient HX: Patient stated that she had hit hand on counter last night 07/29/20; Patient also stated that she had carpal tunnel surgery the week of TECHNIQUE: Imaging protocol: XR Right hand. Views: 3 or more views. COMPARISON: No relevant prior studies available. FINDINGS: Bones/joints: Minimal osteoarthritic changes throughout the distal interphalangeal joints, as manifested predominantly by marginal osteophyte formation. No acutely displaced fracture or dislocation. No aggressive osseous lesions. Soft tissues: No significant soft tissue swelling. IMPRESSION: Negative for acute skeletal pathology. Thank you for allowing us to participate in the care of your patient. Dictated and Authenticated by: Skyler Palacios MD 07/30/2020 9:24 PM Central Time ([place] & [place]) GABO
== END 2020-07-30 20:55 | disposition home or self-care (01) ==
LOC: JD.ED 19:33
DX: S60.221A Contusion of right hand, initial encounter (principal); I10 Essential (primary) hypertension; K21.9 Gastro-esophageal reflux disease without esophagitis; E66.9 Obesity, unspecified; Z68.29 Body mass index [BMI] 29.0-29.9, adult; Z88.6 Allergy status to analgesic agent; Z91.040 Latex allergy status; Z79.899 Other long term (current) drug therapy; W22.8XXA Striking against or struck by other objects, initial encounter
CPT/HCPCS: 73130-26-RT; 73130-RT; 99282; 99283-25

== ENCOUNTER 2020-08-19 12:58 | Emergency (ER) | payer MEDICAID ==
[2020-08-19 13:29] VITALS: BP 159/109; PULSE 99
--- NOTE | 2020-08-19 13:50 | EDM.PDOC ---
ED HPI GENERAL MEDICAL PROBLEM - General Chief Complaint: General Stated Complaint: FELL TUESDAY STERNUM PAIN TODAY Time Seen by Provider: 08/19/20 13:49 - History of Present Illness INITIAL COMMENTS - FREE TEXT/NARRATIVE: 50-year-old female presents the emergency room with pain developing upper spine into her arms and into her neck and she had chest pain shortly before arrival. On Tuesday the patient fell while vacuuming out her son's pickup truck. She fell backwards landing on her buttocks. Immediately after this the patient did pretty well. She went on with her routine activities. Then she started developing some pain in her low back initially this worked up her spine until it reached her neck now she is got pain into her arms. Patient recently had carpal tunnel surgery. She also had a lumbar MRI that shows significant narrowing according to the patient. Patient has not had any loss of bowel or bladder control. While sitting here in the emergency room waiting area the patient had an episode of chest pain she has some associated shortness of breath with this. This has completely resolved and only lasted several minutes. She did not have any nausea or vomiting with it she has no history of heart problems. The patient cannot take aspirin because of stomach upset. Treatments MUSEUM TOUR GUIDE: Reports: Other (see below) Other Treatments MUSEUM TOUR GUIDE: ice;heat; motrin,tylenol Chest Pain Score (Numeric/FACES): 9 - Related Data Allergies Allergy/AdvReac Type Severity Reaction Status Date / Time ketorolac [From Toradol] Allergy Severe Headache Verified 08/19/20 13:19 latex Allergy Severe Rash Verified 08/19/20 13:19 Home Meds: Home Meds SUMAtriptan succinate [Imitrex] 100 mg PO ASDIRECTED PRN #15 tablet 08/28/17 [Rx] Omeprazole 20 mg PO DAILY 04/14/19 [History] traZODone HCl [Trazodone HCl] 100 mg PO BEDTIME 07/01/19 [History] Phentermine HCl 37.5 mg PO DAILY 02/14/20 [History] Past Medical History HEENT History: Reports: None Cardiovascular History: Reports: Hypertension Respiratory History: Reports: None Gastrointestinal History: Reports: GERD Genitourinary History: Reports: None 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 COMPENSATION CLAIMS SUPERVISOR History: X 1 Musculoskeletal History: Reports: Fracture Other Musculoskeletal History: "TUMMY TUCK" 4 YEARS AGO Neurological History: Reports: Migraines Psychiatric History: Reports: Addiction Endocrine/Metabolic History: Reports: Obesity/BMI 30+ Hematologic History: Reports: None Immunologic History: Reports: None Oncologic (Cancer) History: Reports: None Dermatologic History: Reports: Other (See Below) Other Dermatologic History: lipoma - Infectious Disease History Infectious Disease History: Reports: None - Past Surgical History Head Surgeries/Procedures: Reports: None HEENT Surgical History: Reports: Oral Surgery, Tonsillectomy GI Surgical History: Reports: Appendectomy, Cholecystectomy Other GI Surgeries/Procedures: "tummy tuck" Female Surgical History: Reports: Section, Hysterectomy Neurological Surgical History: Reports: C-Spine Musculoskeletal Surgical History: Reports: Arthroscopic Knee, Carpal Tunnel, ORIF Other Musculoskeletal Surgeries/Procedures:: cervical fusion Dermatological Surgical History: Reports: Plastic Surgical Reconstruction/Repair, Other (See Below) Social & Family History - Family History Family Medical History: No Pertinent Family History HEENT: Reports: None Cardiac: Reports: None GI: Reports: None : Reports: None OBGYN: Reports: None Musculoskeletal: Reports: None Neurological: Reports: None Psychiatric: Reports: None Endocrine/Metabolic: Reports: None Hematologic: Reports: None Immunologic: Reports: None Oncologic: Reports: None - Tobacco Use Tobacco Use Status *Q: Never Tobacco User - Caffeine Use Caffeine Use: Reports: Soda Other Caffeine Use: mountain dew 3 cans daily - Recreational Drug Use Recreational Drug Use: No - Living Situation & Occupation Living situation: Reports: , with Family (Brother) Occupation: Employed ([employer] - Review of Systems Review Of Systems: See Below Constitutional: Reports: No Symptoms HEENT: Reports: No Symptoms Respiratory: Reports: Other (See HPI) Cardiovascular: Reports: Other (See HPI) Endocrine: Reports: No Symptoms GI/Abdominal: Reports: No Symptoms : Reports: No Symptoms Musculoskeletal: Reports: Neck Pain, Shoulder Pain, Arm Pain, Back Pain, Other (She has some pain that radiates down her right leg this is been an ongoing issue and recently she has had the MRI for this) Neurological: Denies: Confusion, Dizziness, Headache Psychiatric: Reports: No Symptoms Hematologic/Lymphatic: Reports: No Symptoms Immunologic: Reports: No Symptoms ED EXAM, GENERAL - Physical Exam Exam: See Below Exam Limited By: No Limitations General Appearance: Alert, No Apparent Distress, Other (She absolutely denies any chest pain currently) Head: Atraumatic, Normocephalic Neck: Normal Inspection, Supple, Non-Tender, Full Range of Motion. No: Lymphadenopathy (L), Lymphadenopathy (R) Respiratory/Chest: No Respiratory Distress, Lungs Clear, Normal Breath Sounds Cardiovascular: Regular Rate, Rhythm, No Edema, No Murmur GI/Abdominal: Normal Bowel Sounds, Soft, Non-Tender Back Exam: Other (Significant discomfort along the length of the spine but with this mostly in the paraspinous muscles worse right her than the left this goes all the way from the buttocks into the base of the skull) Neurological: Alert, Oriented, Other (Radicular-like symptoms down her right leg this is been an ongoing issue however.) Psychiatric: Normal Affect, Normal Mood Course - Vital Signs Last Recorded V/S: Last Vital Signs Temp 36.9 C 08/19/20 13:26 Pulse 99 08/19/20 13:26 Resp 10 L 08/19/20 13:26 BP 159/109 H 08/19/20 13:26 Pulse Ox 99 08/19/20 13:26 - Orders/Labs/Meds Orders: Active Orders 24 hr Category Date Time Status EKG Documentation Completion [RC] STAT Care 08/19/20 14:08 Active Labs: Laboratory Tests 08/19/20 08/19/20 08/19/20 Range/Units 14:20 14:20 14:20 WBC 11.13 H (3.98-10.04) K/mm3 RBC 4.45 (3.98-5.22) M/mm3 Hgb 13.9 (11.2-15.7) gm/dl Hct 42.3 (34.1-44.9) % MCV 95.1 H D (79.4-94.8) fl MCH 31.2 (25.6-32.2) pg MCHC 32.9 (32.2-35.5) g/dl RDW Std Deviation 42.1 (36.4-46.3) fL Plt Count 328 (182-369) K/mm3 MPV 8.3 L (9.4-12.3) fl Neut % (Auto) 56.3 (34.0-71.1) % Lymph % (Auto) 31.6 (19.3-51.7) % Archer % (Auto) 9.1 (4.7-12.5) % Eos % (Auto) 2.4 (0.7-5.8) Baso % (Auto) 0.2 (0.1-1.2) % Neut # (Auto) 6.27 H (1.56-6.13) K/mm3 Lymph # (Auto) 3.52 (1.18-3.74) K/mm3 Archer # (Auto) 1.01 H (0.24-0.36) K/mm3 Eos # (Auto) 0.27 (0.04-0.36) K/mm3 Baso # (Auto) 0.02 (0.01-0.08) K/mm3 PT 10.3 (9.7-12.0) SECONDS INR 0.96 APTT 23.9 (21.7-31.4) SECONDS Sodium 141 (136-145) mEq/L Potassium 3.8 (3.5-5.1) mEq/L Chloride 103 (98-107) mEq/L Carbon Dioxide 33 H (21-32) mEq/L Anion Gap 8.8 (5-15) BUN 16 (7-18) mg/dL Creatinine 1.0 (0.55-1.02) mg/dL Est Cr Clr Drug Dosing 53.82 mL/min Estimated GFR (MDRD) 59 (>60) mL/min BUN/Creatinine Ratio 16.0 (14-18) Glucose 100 (74-106) mg/dL Calcium 9.1 (8.5-10.1) mg/dL Total Bilirubin 0.4 (0.2-1.0) mg/dL AST 11 L (15-37) U/L ALT 20 (14-59) U/L Alkaline Phosphatase 65 (46-116) U/L Troponin I < 0.017 (0.00-0.056) ng/mL Total Protein 6.6 (6.4-8.2) g/dl Albumin 3.8 (3.4-5.0) g/dl Globulin 2.8 gm/dL Albumin/Globulin Ratio 1.4 (1-2) - Re-Assessments/Exams Free Text/Narrative Re-Assessment/Exam: 08/19/20 16:38 Still awaiting the EKG on this patient labs are unrevealing troponin negative 08/19/20 16:45 While they are getting ready to do the EKG I did explain to the patient they were getting try nightly Flexeril which she has at home. And then twice daily naproxen. After I left the room patient got up and left. The EKG was not done. And the patient did not get her discharge instructions Departure - Departure Time of Disposition: 16:46 Disposition: Eloped 07 Clinical Impression: Spasm of back muscles, Lumbar strain, Cervical strain, acute - Discharge Information Referrals: PCP,None [Primary Care Provider] - Forms: ED Department Discharge Additional Instructions: Return to the emergency room with any questions problems or worsening symptoms. Use your Flexeril 1 nightly for the next 5-7 days. Allow 12 hours after using this medication before driving or returning to work. Use Naprosyn either 500 mg twice daily or the [id number] 220 mg tablets 2 of them twice daily with meals. Follow-up with your regular healthcare provider on Tuesday for recheck. If you do not have 1 call the hospital clinic [phone] and they will work you in. Sepsis Event Note (ED) - Evaluation Sepsis Screening Result: No Definite Risk - Focused Exam Vital Signs: Vital Signs Temp Pulse Resp BP Pulse Ox 08/19/20 13:26 36.9 C 99 10 L 159/109 H 99 - My Orders Last 24 Hours: My Active Orders 08/19/20 14:08 EKG Documentation Completion [RC] STAT - Assessment/Plan Last 24 Hours: My Active Orders 08/19/20 14:08 EKG Documentation Completion [RC] STAT
== END 2020-08-19 16:44 | disposition left against medical advice (07) ==
LOC: JD.ED 12:58
DX: S39.012A Strain of muscle, fascia and tendon of lower back, initial encounter (principal); S16.1XXA Strain of muscle, fascia and tendon at neck level, initial encounter; I10 Essential (primary) hypertension; K21.9 Gastro-esophageal reflux disease without esophagitis; E66.9 Obesity, unspecified; Z68.27 Body mass index [BMI] 27.0-27.9, adult; Z91.040 Latex allergy status; Z79.899 Other long term (current) drug therapy; Z88.6 Allergy status to analgesic agent; W08.XXXA Fall from other furniture, initial encounter
CPT/HCPCS: 36415; 80053; 84484; 85025; 85610; 85730; 99283; 99283-25

== ENCOUNTER 2021-02-05 06:25 | Day surgery (SDC) | payer MEDICAID ==
[~2021-02-05 06:25] MED LIST: Morphine 8 MG, EPINEPHrine 0.3 MG, Cefuroxime 750 MG, Sodium Chloride 0.9% 7.9 ML PRN
[2021-02-05] MEDS ORDERED: Acetaminophen 325 MG/10.15 ML ML PO SCH (06:30)
[2021-02-05] MEDS ORDERED: Midazolam 1 MG/ML 2 ML SDV ONE (06:58)
[2021-02-05] MEDS ORDERED: fentaNYL 100 MCG/2 ML SDV ONE (06:58)
[2021-02-05] MEDS ORDERED: Propofol 200 MG/20 ML SDV ONE ×4 (06:58→08:46)
[2021-02-05] MEDS ORDERED: Ondansetron 4 MG/2 ML SDV ONE (06:58)
[2021-02-05] MEDS ORDERED: Lidocaine 1% 4 ML ONE (06:59)
[2021-02-05] MEDS ORDERED: ceFAZolin 1 GM Vial ONE (06:59)
[2021-02-05] MEDS ORDERED: Ketorolac 30 MG/ML SDV ONE (06:59)
[2021-02-05] MEDS ORDERED: Lactated Ringers 1,000 ML IV SCH (07:00)
[2021-02-05] MEDS ORDERED: Lidocaine 1%/Sod Bicarbonate in NS 8.4% 1 ML Syringe IDERM PRN (07:00)
[2021-02-05] MEDS ORDERED: Sodium Chloride 0.9% 10 ML Syringe FLUSH PRN (07:00)
[2021-02-05] MEDS ORDERED: SODIUM CHLORIDE 0.9% PRN ×5 (07:05)
[2021-02-05] MEDS ORDERED: CEFUROXIME PRN ×5 (07:05)
[2021-02-05] MEDS ORDERED: MORPHINE PRN ×5 (07:05)
[2021-02-05] MEDS ORDERED: EPINEPHRINE PRN ×5 (07:05)
[2021-02-05] MEDS ORDERED: [UNRECOGNIZED DRUG - OTHER] PRN ×5 (07:05)
[2021-02-05] MEDS ORDERED: Acetaminophen 325 MG Tab PO SCH (07:15)
[2021-02-05] MEDS ORDERED: oxyCODONE ER 10 MG TAB.ER PO ONE (07:15)
[2021-02-05] MEDS ORDERED: Lactated Ringers 1,000 ML ONE (07:53)
[2021-02-05] MEDS ORDERED: Dexamethasone 4 MG/ML 5 ML MDV ONE (08:12)
[2021-02-05] MEDS: Vancomycin 1 GM SDV ONE ×2 (08:23→08:50)
[2021-02-05] MEDS: Morphine 8 MG, EPINEPHrine 0.3 MG, Cefuroxime 750 MG, Sodium Chloride 0.9% 7.9 ML PRN ×8 (08:24→08:46)
--- NOTE | 2021-02-05 08:44 | PCM.PREANE ---
Preanesthetic Assessment - Procedure Proposed Procedure: Right total Knee Arthroplasty - Anesthesia/Transfusion/Family Hx Anesthesia History: Prior Anesthesia Without Reaction Family History of Anesthesia Reaction: No Transfusion History: No Prior Transfusion(s) - Review of Systems General: No Symptoms Pulmonary: No Symptoms Cardiovascular: Dyspnea on Exertion Gastrointestinal: No Symptoms Neurological: Difficulty Walking (with knee pain) Other: Reports: None - Physical Assessment NPO Status Date: 02/04/21 NPO Status Time: 00:00 Vital Signs: Last Vital Signs Temp 36.1 C 02/05/21 07:00 Pulse 89 02/05/21 07:00 Resp 16 02/05/21 07:00 BP 134/73 02/05/21 07:00 Pulse Ox 98 02/05/21 07:00 Height: 1.57 m Weight: 72.575 kg ASA Class: 2 Mental Status: Alert & Oriented x3 Airway Class: Mallampati = 2 Dentition: Reports: Normal Dentition Thyro-Mental Finger Breadths: 3 Mouth Opening Finger Breadths: 3 ROM/Head Extension: Full Lungs: Clear to Auscultation, Normal Respiratory Effort Cardiovascular: Regular Rate, Regular Rhythm - Imaging/EKG Impressions: EKG SR rate78 - Allergies Allergies/Adverse Reactions: Allergies Allergy/AdvReac Type Severity Reaction Status Date / Time latex Allergy Intermediate Rash Verified 02/05/21 08:24 aspirin Allergy Headache Verified 02/05/21 08:24 duloxetine [From Cymbalta] Allergy Headache Verified 02/05/21 08:24 pregabalin [From Lyrica] Allergy Headache Verified 02/05/21 08:24 topiramate [From Topamax] Allergy Headache Verified 02/05/21 08:24 ketorolac [From Toradol] AdvReac Mild Headache Verified 02/05/21 08:24 - Blood Blood Available: No Product(s) Available: None - Anesthesia Plan Pre-Op Medication Ordered: None - Acknowledgements Anesthesia Type Planned: Spinal, Regional Block (right aductor canal block post- op pain control) Pt an Appropriate Candidate for the Planned Anesthesia: Yes Alternatives and Risks of Anesthesia Discussed w Pt/Guardian: Yes Pt/Guardian Understands and Agrees with Anesthesia Plan: Yes PreAnesthesia Questionnaire HEENT History: Reports: None Cardiovascular History: Reports: Hypertension Respiratory History: Reports: None Gastrointestinal History: Reports: GERD Genitourinary History: Reports: None 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: Reports: Other OB/BYN History: X 1 Musculoskeletal History: Reports: Fracture Other Musculoskeletal History: "TUMMY TUCK" 4 YEARS AGO Neurological History: Reports: Migraines Psychiatric History: Reports: Addiction Endocrine/Metabolic History: Reports: Obesity/BMI 30+ Hematologic History: Reports: None Immunologic History: Reports: None Oncologic (Cancer) History: Reports: None Dermatologic History: Reports: Other (See Below) Other Dermatologic History: lipoma - Infectious Disease History Infectious Disease History: Reports: None - Past Surgical History Head Surgeries/Procedures: Reports: None HEENT Surgical History: Reports: Oral Surgery, Tonsillectomy GI Surgical History: Reports: Appendectomy, Cholecystectomy Other GI Surgeries/Procedures: "tummy tuck" Female Surgical History: Reports: Section, Hysterectomy Neurological Surgical History: Reports: C-Spine Musculoskeletal Surgical History: Reports: Arthroscopic Knee, Carpal Tunnel, ORIF Other Musculoskeletal Surgeries/Procedures:: cervical fusion Dermatological Surgical History: Reports: Plastic Surgical Reconstruction/Repair, Other (See Below) - SUBSTANCE USE Tobacco Use Status *Q: Never Tobacco User Recreational Drug Use History: No - HOME MEDS Home Medications: Home Meds SUMAtriptan succinate [Imitrex] 100 mg PO ASDIRECTED PRN #15 tablet 08/28/17 [Rx] traZODone HCl [Trazodone HCl] 150 mg PO BEDTIME 07/01/19 [History] Phentermine HCl 37.5 mg PO DAILY 02/14/20 [History] Acetaminophen [Tylenol Extra Strength] 1,000 mg PO Q6HR PRN 02/04/21 [History] Lidocaine [Lidoderm] 1 patch TOP ASDIRECTED PRN 02/04/21 [History] Losartan/Hydrochlorothiazide [Losartan-HCTZ 50-12.5 MG] 1 tab PO DAILY 02/04/21 [History] Omeprazole Magnesium [Prilosec Otc] 20 mg PO DAILY 02/04/21 [History] Ondansetron [Zofran] 8 mg PO BID PRN 02/04/21 [History] Triamterene 50 mg PO DAILY 02/04/21 [History] metFORMIN [Glucophage] 500 mg PO BIDMEALS 02/04/21 [History] valACYclovir [Valtrex] 1,000 mg PO DAILY 02/04/21 [History] Aspirin [Aspirin EC] 325 mg PO BID #60 tab 02/05/21 [Rx] Cyclobenzaprine [Flexeril] 10 mg PO BID PRN #20 tab 02/05/21 [Rx] Omeprazole 20 mg PO BID #1 02/05/21 [Rx] oxyCODONE 5 - 10 mg PO Q4H PRN #40 tab 02/05/21 [Rx] - CURRENT (IN HOUSE) MEDS Current Meds: Current Medications Acetaminophen (Acetaminophen 325 Mg Tab) 975 mg PO ONETIME [facility] Morphine Sulfate 8 mg/Epinephrine HCl 0.3 mg/Cefuroxime Sodium 750 mg/Sodium Chloride 7.9 ml 0 mg .XX ASDIRECTED PRN PRN Reason: Pain Stop: 02/05/21 16:00 Last Admin: 02/05/21 08:24 Dose: 758.3 mg Documented by: Lactated Ringer's (Ringers, Lactated) 1,000 mls @ 125 mls/hr IV ASDIRECTED KIMBERLY Stop: 02/05/21 23:00 Last Admin: 02/05/21 07:00 Dose: 125 mls/hr Documented by: Lidocaine/Sodium Bicarbonate (Lidocaine 1%/Sod Bicarbonate In Ns 8.4% 1 Ml Syringe) 0.25 ml IDERM ONETIME PRN PRN Reason: Prior to IV Start Stop: 02/05/21 18:00 Last Admin: 02/05/21 07:00 Dose: 0.25 ml Documented by: Sodium Chloride (Sodium Chloride 0.9% 10 Ml Syringe) 10 ml FLUSH ASDIRECTED PRN PRN Reason: Keep Vein Open Stop: 02/05/21 18:00 Discontinued Medications Acetaminophen (Acetaminophen 325 Mg/10.15 Ml Ml) 975 mg PO ONETIME KIMBERLY Last Admin: 02/05/21 07:15 Dose: 975 mg Documented by: Cefazolin Sodium (Cefazolin 1 Gm Vial) Confirm Administered Dose 2 gm .ROUTE .STK-MED ONE Stop: 02/05/21 07:00 Morphine Sulfate 8 mg/Epinephrine HCl 0.3 mg/Cefuroxime Sodium 750 mg/Sodium Chloride 7.9 ml 0 mg .XX ASDIRECTED PRN PRN Reason: Pain Stop: 02/05/21 16:00 Morphine Sulfate 8 mg/Epinephrine HCl 0.3 mg/Cefuroxime Sodium 750 mg/Sodium Chloride 7.9 ml/Ketorolac Tromethamine 30 mg 0 mg .XX ASDIRECTED PRN PRN Reason: Pain Stop: 02/05/21 16:00 Dexamethasone (Dexamethasone 4 Mg/Ml 5 Ml Mdv) Confirm Administered Dose 20 mg .ROUTE .STK-MED ONE Stop: 02/05/21 08:13 Fentanyl (Fentanyl 100 Mcg/2 Ml Sdv) Confirm Administered Dose 100 mcg .ROUTE .STK-MED ONE Stop: 02/05/21 06:59 Lidocaine HCl (Xylocaine-Mpf 1%) Confirm Administered Dose 4 mls @ as directed .ROUTE .STK-MED ONE Stop: 02/05/21 07:00 Lactated Ringer's (Ringers, Lactated) Confirm Administered Dose 1,000 mls @ as directed .ROUTE .STK-MED ONE Stop: 02/05/21 07:54 Ketorolac Tromethamine (Ketorolac 30 Mg/Ml Sdv) Confirm Administered Dose 30 mg .ROUTE .STK-MED ONE Stop: 02/05/21 07:00 Midazolam HCl (Midazolam 1 Mg/Ml 2 Ml Sdv) Confirm Administered Dose 2 mg .ROUTE .STK-MED ONE Stop: 02/05/21 06:59 Miscellaneous Medication (Phenylephrine Hcl In 0.9% Nacl 1 Mg/10 Ml Syringe) Confirm Administered Dose 1 mg .ROUTE .STK-MED ONE Stop: 02/05/21 07:46 Ondansetron HCl (Ondansetron 4 Mg/2 Ml Sdv) Confirm Administered Dose 4 mg .ROUTE .STK-MED ONE Stop: 02/05/21 06:59 Oxycodone HCl (Oxycodone Er 10 Mg Tab.Er) 10 mg PO ONETIME ONE Stop: 02/05/21 07:16 Last Admin: 02/05/21 07:14 Dose: 10 mg Documented by: Propofol (Propofol 200 Mg/20 Ml Sdv) Confirm Administered Dose 200 mg .ROUTE .STK-MED ONE Stop: 02/05/21 06:59 Propofol (Propofol 200 Mg/20 Ml Sdv) Confirm Administered Dose 200 mg .ROUTE .STK-MED ONE Stop: 02/05/21 07:53 Propofol (Propofol 200 Mg/20 Ml Sdv) Confirm Administered Dose 200 mg .ROUTE .STK-MED ONE Stop: 02/05/21 08:21 Tranexamic Acid (Tranexamic Acid 1,000 Mg/10 Ml Amp) Confirm Administered Dose 1,000 mg .ROUTE .STK-MED ONE Stop: 02/05/21 06:45 Last Admin: 02/05/21 08:23 Dose: 1,000 mg Documented by: Vancomycin HCl (Vancomycin 1 Gm Sdv) Confirm Administered Dose 1 gm .ROUTE .STK- MED ONE Stop: 02/05/21 06:45 Last Admin: 02/05/21 08:23 Dose: 1 gm Documented by:
[2021-02-05] MEDS ORDERED: fentaNYL 100 MCG/2 ML SDV IVPUSH PRN (09:22)
[2021-02-05] MEDS ORDERED: EPINEPHrine 1 MG/ML SDV ONE (09:25)
[2021-02-05] MEDS ORDERED: Ropivacaine 0.5% 5 MG/ML 30 ML SDV ONE (09:25)
--- NOTE | 2021-02-05 09:48 | PCM.POSTAN ---
POST ANESTHESIA ASSESSMENT - MENTAL STATUS Mental Status: Alert, Oriented - VITAL SIGNS Vital Signs: Last Vital Signs Temp 36.1 C 02/05/21 09:15 Pulse 92 02/05/21 09:15 Resp 19 02/05/21 09:15 BP 94/48 L 02/05/21 09:15 Pulse Ox 97 02/05/21 09:15 - RESPIRATORY Respiratory Status: Respiratory Rate WNL, Airway Patent, O2 Saturation Stable, Supplemental Oxygen - CARDIOVASCULAR CV Status: Pulse Rate WNL, Blood Pressure Stable - GASTROINTESTINAL GI Status: No Symptoms - PAIN Pain Score: 0 - POST OP HYDRATION Hydration Status: Adequate & Stable - OBSERVATIONS Free Text/Narrative:: no anesthesia complications noted
--- NOTE | 2021-02-05 09:50 | PCM.SN.2 ---
- Free Text/Narrative Note: Right selective femoral nerve block at the adductor canal for post-procedure pain control under US guidance requested by Dr. Kelley. Time Out: 930 Start: 930 End: 939 Chart reviewed. Consent signed. Questions answered. Appropriate monitors applied. Time out performed. Right mid-shaft femur identified with ultrasound, scanning medially of femur, the femoral artery in the adductor canal visualized, and the femoral nerve located laterally to the artery. The skin was prepped lateral to the ultrasound probe with chlorahexadine times two. The 21ga 4 insulated block needle was inserted under direct ultrasound guidance into the adductor canal. 25 mL of 0.5% ropivacaine with 1:200,000 epinephrine was injected circumferentially around the nerve with intermittent negative aspiration noted. Patient tolerated the procedure well. Sterile technique noted along with sterile gloves, mask, and sterile probe cover. See picture on progress note and vital signs on nurses notes. Block completed in PACU. Bandar Hagen CRNA
[2021-02-05] MEDS ORDERED: oxyCODONE 5 MG Tab PO PRN (10:29)
[2021-02-05] MEDS ORDERED: Cyclobenzaprine 10 MG Tab PO ONE (10:30)
--- NOTE | 2021-02-05 10:35 | CR ---
Right knee: AP and crosstable lateral views of the right knee were obtained. Comparison: Prior CT right knee exam of 01/27/21. Knee prosthesis is noted. Patellar prosthesis is also seen. Components are aligned. Underlying bony structures are intact. Diffuse soft tissue air is seen. Impression: 1. Satisfactory postop radiographic appearance of recently placed right knee prostheses. Diagnostic code #2
[2021-02-05 13:07] VITALS: BP 142/80; PULSE 91
--- NOTE | 2021-02-05 14:52 | PCM48HPAN ---
Post Anesthesia Note - EVALUATION WITHIN 48HRS OF ANESTHETIC Vital Signs in Normal Range: Yes Patient Participated in Evaluation: Yes Respiratory Function Stable: Yes Airway Patent: Yes Cardiovascular Function Stable: Yes Hydration Status Stable: Yes Pain Control Satisfactory: Yes Nausea and Vomiting Control Satisfactory: Yes Mental Status Recovered: Yes Vital Signs: Last Vital Signs Temp 36.4 C 02/05/21 10:15 Pulse 91 02/05/21 12:25 Resp 16 02/05/21 12:25 BP 142/80 H 02/05/21 12:25 Pulse Ox 94 L 02/05/21 12:25 - COMMENTS/OBSERVATIONS Free Text/Narrative:: no anesthesia complications noted
--- NOTE | 2021-02-17 07:50 | PCM.OPNOTE ---
- General Post-Op/Procedure Note Date of Surgery/Procedure: 02/05/21 Operative Procedure(s): right total knee with [employer] Pre Op Diagnosis: post traumatic right knee osteoarthritis Post-Op Diagnosis: Same Anesthesia Technique: Local, MAC, Spinal Primary Surgeon: Garth Kelley Anesthesia Provider: Bandar Hagen Shipfitter: Abigail Alcantar Shipfitter: Anne Sanford EBL in mLs: 5 Complications: None Condition: Good Free Text/Narrative:: 09/19 9mm 27x8
--- NOTE | 2021-02-17 09:07 | OR ---
DATE OF OPERATION: 02/05/2021 SURGEON: Garth Kelley MD OPERATION PERFORMED: Right total knee arthroplasty with [employer]. PREOPERATIVE DIAGNOSIS: Posttraumatic right knee osteoarthritis. POSTOPERATIVE DIAGNOSIS: Posttraumatic right knee osteoarthritis. ANESTHESIA: Local MAC with spinal. ANESTHESIA PROVIDER: Randy Hernandez. FAMILY MEMBER CARETAKER: Abigail Alcantar PA-C; and Anne Sanford LPN. ESTIMATED BLOOD LOSS: 5 mL. COMPLICATIONS: None. CONDITION: Stable. IMPLANTS: 1. [place] size 1 press-fit CR femur. 2. [place] size 1 press-fit tibial baseplate. 3. [place] size 1 9 mm CS polyethylene insert. 4. Noe size 27 x 8 mm cemented symmetric patella. DESCRIPTION OF PROCEDURE: The patient was identified in the preoperative holding area. Proper site was marked and identified by the surgeon. The patient was taken back to the operative theater, where after adequate anesthesia, the patient's right lower extremity had a nonsterile tourniquet applied and was sterilely prepped and draped in the usual sterile fashion. OR time-out was performed. The patient received 2 g IV Ancef. Right lower extremity was exsanguinated. Tourniquet was insufflated to 250 mmHg. Standard anterior incision was made and medial parapatellar arthrotomy was created. Deep fibers of the MCL were raised and anterior fat pad was resected. Attention was turned to the patella. Patella measured only a 19 and was resected to a 13 for a 27 x 8 mm patella as the 29 was too big with overhang and would have overstuffing. Drill holes were then drilled. Attention was turned to the femur. Two 4.0 Schanz pins were placed intra-incisionally in the femur and then 2 more in the tibia extra-incisionally. [place] [employer] arrays as well as checkpoints were placed on the femur and the tibia. Hip center rotation was obtained. Medial and lateral malleoli were marked and checkpoints were marked. 40 points were then obtained after both the femur and the tibia with the blue probe for the [place] [employer] plan. The patient's knee was brought into full extension. Varus valgus stresses were applied at both 0 and 90 degrees. [place] [employer] plan for this patient for 18 mm gaps was then obtained and a saw blade was brought in. Tibial cut was completed as well as the posterior femoral cut, anterior femoral cut, and anterior chamfer cut. Saw blades were then switched, then the distal femoral cut as well as posterior chamfer cuts were completed and found to be adequate. All bony fragments were removed. Medial and lateral meniscus were resected as well as any posterior osteophytes. At this time, size 1 trial implants were placed at both the femur and tibia with a 9 mm trial poly. The patient's knee was brought into full extension. There was no varus-valgus instability. No signs of liftoff and patella was tracking centrally. At this time, the femoral drill holes were drilled. The tibia was stamped and drilled into proper rotation. This patient as we did not pin the trial poly, so it could find its own rotation. At this time, the size 1 tibial baseplate was impacted into place, size 1 femur was impacted into place, 9 mm CS polyethylene insert was impacted into place. The patient's knee was brought into full extension. Cement had been mixed on the back table and a 27 x 8 mm patella was cemented into place. Patellar zaragoza was then placed. Excess cement was removed. 1 L pulse lavage irrigation with Ancef was irrigated through the knee along with 400 mL of IrriSept irrigation. Periarticular injection was completed. Topical tranexamic acid and vancomycin powder were applied. Once the cement had hardened, #2 barbed suture was used for closure of the medial parapatellar arthrotomy. 2-0 Vicryl as well as Stratafix was used for subcutaneous closure, and Prineo was used for skin closure. The patient had a sterile soft dressing and an Rene wrap applied and was sent to the PACU in stable condition. MMODAL /[id number]
== END 2021-02-05 12:45 | disposition home or self-care (01) ==
LOC: JD.SDS 06:25
PROVIDERS: ATTEND Orthopaedic Surgery
DX: M17.31 Unilateral post-traumatic osteoarthritis, right knee (principal); G43.909 Migraine, unspecified, not intractable, without status migrainosus; G89.29 Other chronic pain; Z98.890 Other specified postprocedural states; K21.9 Gastro-esophageal reflux disease without esophagitis; G47.00 Insomnia, unspecified; E66.9 Obesity, unspecified; I10 Essential (primary) hypertension; R60.9 Edema, unspecified; G89.18 Other acute postprocedural pain; Z90.49 Acquired absence of other specified parts of digestive tract; Z79.899 Other long term (current) drug therapy; Z91.040 Latex allergy status; Z88.8 Allergy status to other drugs, medicaments and biological substances; Z68.29 Body mass index [BMI] 29.0-29.9, adult
CPT/HCPCS: 27447; 73560; 97110; 97116; 97161; 97165; 97535; A9270; C1713; C1776; J0171; J0690; J0697; J1100; J2250; J2270; J2370; J2405; J2704; J2795; J3010; J3370; J7120; 01402; 64450; 76942; J1885

== ENCOUNTER 2021-02-16 13:07 | Emergency (ER) | payer MEDICAID ==
[2021-02-16 13:44] VITALS: BP 128/69; PULSE 120
--- NOTE | 2021-02-16 14:02 | EDM.PDOC ---
ED HPI GENERAL MEDICAL PROBLEM - General Chief Complaint: Medication Administration Stated Complaint: NEEDS PAIN MEDS Time Seen by Provider: 02/16/21 13:37 Source of Information: Reports: Patient History Limitations: Reports: No Limitations - History of Present Illness INITIAL COMMENTS - FREE TEXT/NARRATIVE: The patient presents with right knee pain. She is 6 weeks post op with a knee replacement by Dr Kelley. Things are going good but she still has pain and is out of her percocet. She tried calling his office and they advised her to come into the ER for help. She has no fever, chills, cough, chest pain, shortness of breath and no edema to the leg. Onset: Gradual Duration: Week(s): Location: Reports: Lower Extremity, Right (knee) Quality: Reports: Sharp Severity: Moderate Improves with: Reports: None Worsens with: Reports: None Associated Symptoms: Reports: No Other Symptoms Right Knee Pain Score (Numeric/FACES): 7 - Related Data Allergies Allergy/AdvReac Type Severity Reaction Status Date / Time latex Allergy Intermediate Rash Verified 02/16/21 13:37 ketorolac [From Toradol] AdvReac Mild Headache Verified 02/16/21 13:37 aspirin AdvReac Headache Verified 02/16/21 13:37 duloxetine [From Cymbalta] AdvReac Headache Verified 02/16/21 13:37 pregabalin [From Lyrica] AdvReac Headache Verified 02/16/21 13:37 topiramate [From Topamax] AdvReac Headache Verified 02/16/21 13:37 Home Meds: Home Meds SUMAtriptan succinate [Imitrex] 100 mg PO ASDIRECTED PRN #15 tablet 08/28/17 [Rx] traZODone HCl [Trazodone HCl] 150 mg PO BEDTIME 07/01/19 [History] Phentermine HCl 37.5 mg PO DAILY 02/14/20 [History] Acetaminophen [Tylenol Extra Strength] 1,000 mg PO Q6HR PRN 02/04/21 [History] Lidocaine [Lidoderm] 1 patch TOP ASDIRECTED PRN 02/04/21 [History] Losartan/Hydrochlorothiazide [Losartan-HCTZ 50-12.5 MG] 1 tab PO DAILY 02/04/21 [History] Omeprazole Magnesium [Prilosec Otc] 20 mg PO DAILY 02/04/21 [History] Ondansetron [Zofran] 8 mg PO BID PRN 02/04/21 [History] Triamterene 50 mg PO DAILY 02/04/21 [History] metFORMIN [Glucophage] 500 mg PO BIDMEALS 02/04/21 [History] valACYclovir [Valtrex] 1,000 mg PO DAILY 02/04/21 [History] Aspirin [Aspirin EC] 325 mg PO BID #60 tab 02/05/21 [Rx] Cyclobenzaprine [Flexeril] 10 mg PO BID PRN #20 tab 02/05/21 [Rx] oxyCODONE 5 - 10 mg PO Q4H PRN #40 tab 02/05/21 [Rx] Past Medical History HEENT History: Reports: None Cardiovascular History: Reports: Hypertension Respiratory History: Reports: None Gastrointestinal History: Reports: GERD Genitourinary History: Reports: None CONTINUOUS IMPROVEMENT COORDINATOR History: Reports: Other CONTINUOUS IMPROVEMENT COORDINATOR History: X 1 Musculoskeletal History: Reports: Fracture Other Musculoskeletal History: "TUMMY TUCK" 4 YEARS AGO Neurological History: Reports: Migraines Psychiatric History: Reports: Addiction Endocrine/Metabolic History: Reports: Obesity/BMI 30+ Hematologic History: Reports: None Immunologic History: Reports: None Oncologic (Cancer) History: Reports: None Dermatologic History: Reports: Other (See Below) Other Dermatologic History: lipoma - Infectious Disease History Infectious Disease History: Reports: Chicken Pox - Past Surgical History Head Surgeries/Procedures: Reports: None HEENT Surgical History: Reports: Oral Surgery, Tonsillectomy GI Surgical History: Reports: Appendectomy, Cholecystectomy Other GI Surgeries/Procedures: "tummy tuck" Female Surgical History: Reports: Section, Hysterectomy Neurological Surgical History: Reports: C-Spine Musculoskeletal Surgical History: Reports: Arthroscopic Knee, Carpal Tunnel, Knee Replacement, ORIF Other Musculoskeletal Surgeries/Procedures:: cervical fusion Dermatological Surgical History: Reports: Plastic Surgical Reconstruction/Repair, Other (See Below) Social & Family History - Family History Family Medical History: No Pertinent Family History HEENT: Reports: None Cardiac: Reports: None GI: Reports: None : Reports: None OBGYN: Reports: None Musculoskeletal: Reports: None Neurological: Reports: None Psychiatric: Reports: None Endocrine/Metabolic: Reports: None Hematologic: Reports: None Immunologic: Reports: None Oncologic: Reports: None - Tobacco Use Tobacco Use Status *Q: Never Tobacco User - Caffeine Use Caffeine Use: Reports: Soda Other Caffeine Use: mountain dew 3 cans daily Caffeine Use Comment: 1 12 oz soda daily - Recreational Drug Use Recreational Drug Use: No - Living Situation & Occupation Living situation: Reports: , with Family (Brother) Occupation: Employed ([employer] [place]) ED ROS GENERAL - Review of Systems Review Of Systems: See Below Constitutional: Reports: No Symptoms HEENT: Reports: No Symptoms Respiratory: Reports: No Symptoms Cardiovascular: Reports: No Symptoms Endocrine: Reports: No Symptoms GI/Abdominal: Reports: No Symptoms : Reports: No Symptoms Musculoskeletal: Reports: Other (right knee pain) ED EXAM, GENERAL - Physical Exam Exam: See Below Exam Limited By: No Limitations General Appearance: Alert, No Apparent Distress Ears: Normal External Exam Nose: Normal Inspection Head: Atraumatic, Normocephalic Neck: Normal Inspection Respiratory/Chest: No Respiratory Distress, Lungs Clear, Normal Breath Sounds Cardiovascular: Regular Rate, Rhythm, No Edema, No Murmur GI/Abdominal: Soft, Non-Tender, No Organomegaly, No Mass Extremities: Other (Scar down the midial knee. No erythema, edema or drainage. Good sensation and pulses distally.) Course - Vital Signs Last Recorded V/S: Last Vital Signs Temp 97.5 F 02/16/21 13:42 Pulse 120 H 02/16/21 13:42 Resp 18 02/16/21 13:42 BP 128/69 02/16/21 13:42 Pulse Ox 98 02/16/21 13:42 Departure - Departure Time of Disposition: 14:05 Disposition: Home, Self-Care 01 Condition: Good Clinical Impression: Knee pain Qualifiers: Chronicity: acute Laterality: right Qualified Code(s): M25.561 - Pain in right knee - Discharge Information *PRESCRIPTION DRUG MONITORING PROGRAM REVIEWED*: Not Applicable *COPY OF PRESCRIPTION DRUG MONITORING REPORT IN PATIENT DAXA: Not Applicable Referrals: Garth Kelley MD [Primary Care Provider] - 1 Week Additional Instructions: Take the percocet as needed. Please return if you are worse. Sepsis Event Note (ED) - Evaluation Sepsis Screening Result: No Definite Risk - Focused Exam Vital Signs: Vital Signs Temp Pulse Resp BP Pulse Ox 02/16/21 13:42 97.5 F 120 H 18 128/69 98
== END 2021-02-16 14:10 | disposition home or self-care (01) ==
LOC: JD.ED 13:07
DX: M25.561 Pain in right knee (principal); I10 Essential (primary) hypertension; E66.9 Obesity, unspecified; K21.9 Gastro-esophageal reflux disease without esophagitis; Z68.29 Body mass index [BMI] 29.0-29.9, adult; Z91.040 Latex allergy status; Z88.6 Allergy status to analgesic agent; Z88.8 Allergy status to other drugs, medicaments and biological substances
CPT/HCPCS: 99283

== ENCOUNTER → 2021-04-13 | Day surgery (SDC) | payer MEDICAID ==
[~2021-04-13] MED LIST changes: +HYDROmorphone 0.5 MG/0.5 ML Syringe IVPUSH ONE; +Lactated Ringers 1,000 ML IV SCH; +Lidocaine 1% 4 ML ONE; +Lidocaine 1%/Sod Bicarbonate in NS 8.4% 1 ML Syringe IDERM PRN; +Midazolam 1 MG/ML 2 ML SDV ONE; -Morphine 8 MG, EPINEPHrine 0.3 MG, Cefuroxime 750 MG, Sodium Chloride 0.9% 7.9 ML PRN; +Propofol 200 MG/20 ML SDV ONE; +Sodium Chloride 0.9% 10 ML Syringe FLUSH PRN; +fentaNYL 100 MCG/2 ML SDV IVPUSH ONE; +fentaNYL 100 MCG/2 ML SDV ONE; +oxyCODONE 5 MG Tab PO PRN
--- NOTE | 2021-04-13 06:24 | PCM.PREANE ---
Preanesthetic Assessment - Anesthesia/Transfusion/Family Hx Anesthesia History: Prior Anesthesia Without Reaction Family History of Anesthesia Reaction: No Transfusion History: No Prior Transfusion(s) Intubation History: Unknown - Review of Systems General: No Symptoms Pulmonary: No Symptoms Cardiovascular: No Symptoms Gastrointestinal: No Symptoms Neurological: No Symptoms Other: Reports: None - Physical Assessment NPO Status Date: 04/12/21 NPO Status Time: 22:30 ASA Class: 2 Mental Status: Alert & Oriented x3 Airway Class: Mallampati = 1 Dentition: Reports: Normal Dentition Thyro-Mental Finger Breadths: 3 Mouth Opening Finger Breadths: 3 ROM/Head Extension: Full Lungs: Clear to Auscultation, Normal Respiratory Effort Cardiovascular: Regular Rate, Regular Rhythm - Allergies Allergies/Adverse Reactions: Allergies Allergy/AdvReac Type Severity Reaction Status Date / Time latex Allergy Intermediate Rash Verified 04/10/21 13:14 ketorolac [From Toradol] AdvReac Mild Headache Verified 04/10/21 13:14 aspirin AdvReac Headache Verified 04/10/21 13:14 duloxetine [From Cymbalta] AdvReac Headache Verified 04/10/21 13:14 pregabalin [From Lyrica] AdvReac Headache Verified 04/10/21 13:14 topiramate [From Topamax] AdvReac Headache Verified 04/10/21 13:14 - Acknowledgements Anesthesia Type Planned: MAC Pt an Appropriate Candidate for the Planned Anesthesia: Yes Alternatives and Risks of Anesthesia Discussed w Pt/Guardian: Yes Pt/Guardian Understands and Agrees with Anesthesia Plan: Yes PreAnesthesia Questionnaire HEENT History: Reports: None Cardiovascular History: Reports: Hypertension Respiratory History: Reports: None Gastrointestinal History: Reports: GERD Genitourinary History: Reports: None 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 OB/BYN History: X 1 Musculoskeletal History: Reports: Fracture Other Musculoskeletal History: "TUMMY TUCK" 4 YEARS AGO Neurological History: Reports: Migraines Psychiatric History: Reports: Addiction Endocrine/Metabolic History: Reports: Obesity/BMI 30+ Hematologic History: Reports: None Immunologic History: Reports: None Oncologic (Cancer) History: Reports: None Dermatologic History: Reports: Other (See Below) Other Dermatologic History: lipoma - Infectious Disease History Infectious Disease History: Reports: Chicken Pox - Past Surgical History Head Surgeries/Procedures: Reports: None HEENT Surgical History: Reports: Oral Surgery, Tonsillectomy GI Surgical History: Reports: Appendectomy, Cholecystectomy Other GI Surgeries/Procedures: "tummy tuck" Female Surgical History: Reports: Section, Hysterectomy Neurological Surgical History: Reports: C-Spine Musculoskeletal Surgical History: Reports: Arthroscopic Knee, Carpal Tunnel, Knee Replacement, ORIF Other Musculoskeletal Surgeries/Procedures:: cervical fusion Dermatological Surgical History: Reports: Plastic Surgical Reconstruction/Repair, Other (See Below) - SUBSTANCE USE Tobacco Use Status *Q: Never Tobacco User Recreational Drug Use History: No - HOME MEDS Home Medications: Home Meds SUMAtriptan succinate [Imitrex] 100 mg PO ASDIRECTED PRN #15 tablet 08/28/17 [Rx] traZODone HCl [Trazodone HCl] 150 mg PO BEDTIME 07/01/19 [History] Phentermine HCl 37.5 mg PO DAILY 02/14/20 [History] Acetaminophen [Tylenol Extra Strength] 1,000 mg PO Q6HR PRN 02/04/21 [History] Lidocaine [Lidoderm] 1 patch TOP ASDIRECTED PRN 02/04/21 [History] Losartan/Hydrochlorothiazide [Losartan-HCTZ 50-12.5 MG] 1 tab PO DAILY 02/04/21 [History] Omeprazole Magnesium [Prilosec Otc] 20 mg PO DAILY 02/04/21 [History] Ondansetron [Zofran] 8 mg PO BID PRN 02/04/21 [History] Triamterene 50 mg PO DAILY 02/04/21 [History] metFORMIN [Glucophage] 500 mg PO BIDMEALS 02/04/21 [History] valACYclovir [Valtrex] 1,000 mg PO DAILY 02/04/21 [History] Celecoxib [CeleBREX] 200 mg PO DAILY PRN #10 cap 04/10/21 [Rx] Cholecalciferol (Vitamin D3) [Vitamin D] 1 tab PO DAILY 04/10/21 [History] oxyCODONE 5 mg PO Q6H PRN #20 tab 04/10/21 [Rx] - CURRENT (IN HOUSE) MEDS Current Meds: Current Medications Lactated Ringer's (Ringers, Lactated) 1,000 mls @ 125 mls/hr IV ASDIRECTED KIMBERLY Stop: 04/13/21 23:00 Lidocaine/Sodium Bicarbonate (Lidocaine 1%/Sod Bicarbonate In Ns 8.4% 1 Ml Syringe) 0.25 ml IDERM ONETIME PRN PRN Reason: Prior to IV Start Stop: 04/13/21 18:00 Sodium Chloride (Sodium Chloride 0.9% 10 Ml Syringe) 10 ml FLUSH ASDIRECTED PRN PRN Reason: Keep Vein Open Stop: 04/13/21 18:00 Discontinued Medications Fentanyl (Fentanyl 100 Mcg/2 Ml Sdv) Confirm Administered Dose 100 mcg .ROUTE .STK-MED ONE Stop: 04/13/21 06:08 Lidocaine HCl (Xylocaine-Mpf 1%) Confirm Administered Dose 4 mls @ as directed .ROUTE .STK-MED ONE Stop: 04/13/21 06:08 Midazolam HCl (Midazolam 1 Mg/Ml 2 Ml Sdv) Confirm Administered Dose 2 mg .ROUTE .STK-MED ONE Stop: 04/13/21 06:08 Propofol (Propofol 200 Mg/20 Ml Sdv) Confirm Administered Dose 200 mg .ROUTE .STK-MED ONE Stop: 04/13/21 06:08
--- NOTE | 2021-04-13 07:15 | PCM48HPAN ---
Post Anesthesia Note - EVALUATION WITHIN 48HRS OF ANESTHETIC Vital Signs in Normal Range: Yes Patient Participated in Evaluation: Yes Respiratory Function Stable: Yes Airway Patent: Yes Cardiovascular Function Stable: Yes Hydration Status Stable: Yes Pain Control Satisfactory: Yes Nausea and Vomiting Control Satisfactory: Yes Mental Status Recovered: Yes
[2021-04-13 15:59] VITALS: BP 136/88; PULSE 88
--- NOTE | 2021-04-29 15:27 | PCM.OPNOTE ---
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
--- NOTE | 2021-04-29 16:18 | OR ---
DATE OF OPERATION: 04/13/2021 SURGEON: Garth Kelley MD OPERATION PERFORMED: Right total knee arthroplasty, manipulation under anesthesia. PREOPERATIVE DIAGNOSIS: Right total knee arthrofibrosis. POSTOPERATIVE DIAGNOSIS: Right total knee arthrofibrosis. ANESTHESIA: MAC, sedation. ANESTHESIA PROVIDER: Ngoc Edmondson CRNA ESTIMATED BLOOD LOSS: Not applicable. COMPLICATIONS: None. CONDITION: Stable. DESCRIPTION OF PROCEDURE: The patient was identified in the preoperative holding area, proper site was marked and identified by the surgeon. The patient was taken back to the operative theater where after adequate anesthesia, a time-out was performed. At this time, pre-manipulation measured 2 to 85. At this time, manipulation was done to the right total knee arthroplasty and was able to obtain roughly 1 to 2 to 128 degrees of flexion to the right knee. The patient at this time was sent back in stable condition and will begin physical therapy tomorrow. MMODAL /[id number]
== END | disposition home or self-care (01) ==
LOC: JD.SDS 05:59
PROVIDERS: ATTEND Orthopaedic Surgery
DX: T84.82XA Fibrosis due to internal orthopedic prosthetic devices, implants and grafts, initial encounter (principal); I10 Essential (primary) hypertension; Z91.040 Latex allergy status; Z88.6 Allergy status to analgesic agent; Z88.8 Allergy status to other drugs, medicaments and biological substances; Z96.651 Presence of right artificial knee joint
CPT/HCPCS: 27599; A9270; J2250; J2704; J3010; J7120; 01380

== ENCOUNTER 2021-09-20 18:54 | Emergency (ER) | payer BC, MEDICAID ==
[2021-09-20 19:23] VITALS: BP 136/124; PULSE 96
--- NOTE | 2021-09-20 19:44 | EDM.PDOC ---
ED HPI GENERAL MEDICAL PROBLEM - General Chief Complaint: Lower Extremity Injury/Pain Stated Complaint: RT FOOT PAIN Time Seen by Provider: 09/20/21 19:24 Source of Information: Reports: Patient History Limitations: Reports: No Limitations - History of Present Illness INITIAL COMMENTS - FREE TEXT/NARRATIVE: Ms. Roberts is a pleasant 59-year-old woman who now presents the ED with right foot pain. She states that a rock fell onto her foot while at work about 2 weeks ago, and she has had pain since. She has been taking acetaminophen and ibuprofen, which she states is not working well. No prior medical evaluation for this injury. Review of prior medical records indicates that the patient has a well-documented history of opioid dependence and drug-seeking behavior. At triage, the patient's initial BP was found to be slightly elevated at 136/124, otherwise, she was hemodynamically stable, afebrile, saturating 99% on room air. She appears to be comfortable, in no acute distress. Other than the foot injury, the patient denies having a recent fever, chills, sore throat, ear pain, nasal or sinus congestion, cough, dyspnea, chest pain, palpitations, nausea, vomiting, constipation, diarrhea, abdominal pain, urinary symptoms, recent weight gain or weight loss, recent bloody bowel movements or black bowel movements, recent joint aches, headaches, or rashes. The patient's PCP is Rachna Pruitt NP. Her Orthopedic Surgeon is Dr. Garth Kelley. She has not received a COVID vaccination, nor an influenza vaccination this season. Right Feet Pain Score (Numeric/FACES): 7 - Related Data Allergies Allergy/AdvReac Type Severity Reaction Status Date / Time latex Allergy Intermediate Rash Verified 09/20/21 19:17 tramadol Allergy Headache Verified 09/20/21 19:17 ketorolac [From Toradol] AdvReac Mild Headache Verified 09/20/21 19:17 aspirin AdvReac Headache Verified 09/20/21 19:17 duloxetine [From Cymbalta] AdvReac Headache Verified 09/20/21 19:17 pregabalin [From Lyrica] AdvReac Headache Verified 09/20/21 19:17 topiramate [From Topamax] AdvReac Headache Verified 09/20/21 19:17 Home Meds: Home Meds SUMAtriptan succinate [Imitrex] 100 mg PO ASDIRECTED PRN #15 tablet 08/28/17 [Rx] traZODone HCl [Trazodone HCl] 150 mg PO BEDTIME 07/01/19 [History] Phentermine HCl 37.5 mg PO DAILY 02/14/20 [History] Acetaminophen [Tylenol Extra Strength] 1,000 mg PO Q6HR PRN 02/04/21 [History] Lidocaine [Lidoderm] 1 patch TOP ASDIRECTED PRN 02/04/21 [History] Losartan/Hydrochlorothiazide [Losartan-HCTZ 50-12.5 MG] 1 tab PO DAILY 02/04/21 [History] Omeprazole Magnesium [Prilosec Otc] 20 mg PO DAILY 02/04/21 [History] Ondansetron [Zofran] 8 mg PO BID PRN 02/04/21 [History] Triamterene 50 mg PO DAILY 02/04/21 [History] metFORMIN [Glucophage] 500 mg PO BIDMEALS 02/04/21 [History] valACYclovir [Valtrex] 1,000 mg PO DAILY 02/04/21 [History] Celecoxib [CeleBREX] 200 mg PO DAILY PRN #10 cap 04/10/21 [Rx] Cholecalciferol (Vitamin D3) [Vitamin D] 1 tab PO DAILY 04/10/21 [History] oxyCODONE 5 mg PO Q6H PRN #20 tab 04/10/21 [Rx] Past Medical History Cardiovascular History: Reports: Hypertension Gastrointestinal History: Reports: GERD Musculoskeletal History: Reports: Fracture (right ankle) Neurological History: Reports: Migraines Psychiatric History: Reports: Addiction (opioids, with history of drug-seeking behavior) - Infectious Disease History Infectious Disease History: Reports: Chicken Pox - Past Surgical History HEENT Surgical History: Reports: Oral Surgery (dental extractions), Tonsillectomy GI Surgical History: Reports: Appendectomy, Cholecystectomy (around 2008) Female Surgical History: Reports: Section (x 1), Hysterectomy (complete) Neurological Surgical History: Reports: C-Spine (ACDF) Musculoskeletal Surgical History: Reports: Arthroscopic Knee (right), Carpal Tunnel, ORIF (right ankle 1999, 2000 x 2) Dermatological Surgical History: Reports: Plastic Surgical Reconstruction/Repair (Abdominoplasty) Social & Family History - Tobacco Use Tobacco Use Status *Q: Never Tobacco User - Caffeine Use Caffeine Use: Reports: Soda Other Caffeine Use: mountain dew 3 cans daily Caffeine Use Comment: 1 12 oz soda daily - Alcohol Use Alcohol Use History: Yes Alcohol Use Frequency: Rarely - Recreational Drug Use Recreational Drug Use: No - Living Situation & Occupation Living situation: Reports: , Alone Occupation: Employed ([employer]) Review of Systems - Review of Systems Review Of Systems: Comprehensive ROS is negative, except as noted in HPI. ED EXAM, GENERAL - Physical Exam Exam: See Below Exam Limited By: No Limitations General Appearance: Alert, WD/WN, No Apparent Distress Extremities: Other (Subtle ecchymosis over the dorsal aspect of the right 1st and 2nd MTPs that the patient indicates is tender. No other visible ab normalities, such as erythema or abrasion. Neurovascular status of the right foot is intact.) Course - Vital Signs Last Recorded V/S: Last Vital Signs Temp 35.8 C L 09/20/21 19:20 Pulse 96 09/20/21 19:20 Resp 14 09/20/21 19:20 BP 136/124 H 09/20/21 19:20 Pulse Ox 99 09/20/21 19:20 - Orders/Labs/Meds Orders: Active Orders 24 hr Category Date Time Status Foot Comp Min 3V Rt [CR] Stat Exams 09/20/21 19:35 Taken - Re-Assessments/Exams Free Text/Narrative Re-Assessment/Exam: 09/20/21 19:42 The patient has subtle ecchymosis to the dorsal aspect of her distal right foot, over the 1st and 2nd MTPs, with no other visible injury, and normal distal perfusion. My suspicion for fracture is low, but I ordered x-rays of the foot to be sure. 09/20/21 19:58 3-view radiographs of the right foot appear to be grossly normal, with no fractures or dislocations identified. Formal read per the Radiologist pending. 09/20/21 20:00 X-ray results discussed with the patient. At this point, there is not much that can be done. I explained that there are no medicines to get rid of a bruise, that it will have to resolve on its own. I am not recommending ice; the best utility of it would have been within the first few days. I recommended OTC acetaminophen or ibuprofen as needed for discomfort. Departure - Departure Time of Disposition: 20:01 Disposition: Home, Self-Care 01 Condition: Good Clinical Impression: Contusion of right foot - Discharge Information *PRESCRIPTION DRUG MONITORING PROGRAM REVIEWED*: Not Applicable *COPY OF PRESCRIPTION DRUG MONITORING REPORT IN PATIENT DAXA: Not Applicable Referrals: Rachna Pruitt NP [Primary Care Provider] - Garth Kelley MD [Physician] - Forms: ED Department Discharge Additional Instructions: You were seen in the Emergency Room for pain to your right foot after a rock fell on it about 2 weeks ago. Workup in the ER included XRays, which returned normal, with no broken bones or dislocations. Based on your history, physical exam, and ER XRays, you appear to have contused (bruised) your foot. As discussed, there are no medical treatments for a bruise - it will have to heal on its own. We recommend that you take [id number] acetaminophen (Tylenol) or ibuprofen (Advil, Motrin) as needed for discomfort. If any other problems, please do not hesitate to return to the ER. Sepsis Event Note (ED) - Evaluation Sepsis Screening Result: No Definite Risk - Focused Exam Vital Signs: Vital Signs Temp Pulse Resp BP Pulse Ox 09/20/21 19:20 35.8 C L 96 14 136/124 H 99 - My Orders Last 24 Hours: My Active Orders 09/20/21 19:35 Foot Comp Min 3V Rt [CR] Stat - Assessment/Plan Last 24 Hours: My Active Orders 09/20/21 19:35 Foot Comp Min 3V Rt [CR] Stat
--- NOTE | 2021-09-21 14:37 | CR ---
EXAM: XR FOOT MINIMUM 3 VIEWS RIGHT LOCATION: [facility] DATE/TIME: 09/20/2021 7:47 PM INDICATION: Pain and injury or trauma; other; lg rock landed on foot; blunt trauma; right; foot and toes; patient hx: large rock fell and landed on pt foot. bruising at the base of 2nd-4th toes at the pip. COMPARISON: None. IMPRESSION: No fracture or dislocation. Mild degenerative changes throughout the midfoot. Small plantar calcaneal spur. Cannulated screw in the distal fibular shaft. SIGNED BY: Villa Payton MD 09/21/2021 12:31 PM GABO
== END 2021-09-20 20:22 | disposition home or self-care (01) ==
LOC: JD.ED 18:54
DX: S90.31XA Contusion of right foot, initial encounter (principal); I10 Essential (primary) hypertension; K21.9 Gastro-esophageal reflux disease without esophagitis; Z91.040 Latex allergy status; Z88.5 Allergy status to narcotic agent; Z88.6 Allergy status to analgesic agent; Z88.8 Allergy status to other drugs, medicaments and biological substances; Z79.899 Other long term (current) drug therapy; W20.8XXA Other cause of strike by thrown, projected or falling object, initial encounter; Y99.0 Civilian activity done for income or pay
CPT/HCPCS: 73630-26-RT; 73630-RT; 99283

== ENCOUNTER 2022-03-20 12:05 | Emergency (ER) | payer BC, MEDICAID ==
[2022-03-20 14:21] VITALS: BP 114/80
[2022-03-20] MEDS ORDERED: HYDROmorphone 1 MG/ML Syringe IM ONE (16:11)
[2022-03-20 18:06] VITALS: PULSE 78
== END 2022-03-20 17:55 | disposition home or self-care (01) ==
LOC: JD.ED 12:05
DX: M25.461 Effusion, right knee (principal); I10 Essential (primary) hypertension; K21.9 Gastro-esophageal reflux disease without esophagitis; E66.9 Obesity, unspecified; Z68.31 Body mass index [BMI] 31.0-31.9, adult; Z79.899 Other long term (current) drug therapy; Z88.8 Allergy status to other drugs, medicaments and biological substances; Z88.0 Allergy status to penicillin
CPT/HCPCS: 73564; 96372; 99283; J1170

== ENCOUNTER 2024-03-23 15:32 | Emergency (ER) | payer MEDICAID ==
[2024-03-23 17:10] LABS: BASOPHILS PERCENT AUTO 0.4 % (0.0-1.0); EOSINOPHILS PERCENT AUTO 0.4 % (0.0-6.0); HEMOGLOBIN 14.1 gm/dl (12.0-16.0); IMMATURE GRAN ABSOLUTE AUTO 0.02 K/mm3 (0.00-0.05); IMMATURE GRAN PERCENT AUTO 0.2 % (0.0-0.4); LYMPHOCYTES ABSOLUTE AUTO 2.7 K/mm3 (1.0-4.8); LYMPHOCYTES PERCENT AUTO 30.2 % (24.0-44.0); MEAN CORPUSCULAR HEMOGLOBIN 31.5 pg (28.0-32.0); MEAN CORPUSCULAR HGB CONC 34.4 g/dl (32.0-36.0); MEAN CORPUSCULAR VOLUME 91.7 fl (83.0-99.0); MEAN PLATELET VOLUME 8.7 fl (9.4-12.3); MONOCYTES ABSOLUTE AUTO 0.8 K/mm3 (0.0-0.8); NEUTROPHILS ABSOLUTE AUTO 5.3 K/mm3 (1.8-7.7); NEUTROPHILS PERCENT AUTO 59.8 % (41.0-71.0); PLATELET COUNT,PLT 372 K/mm3 (150-400); RED BLOOD CELL COUNT 4.47 M/mm3 (4.10-5.30); WHITE BLOOD CELL COUNT,WBC 8.91 K/mm3 (3.9-11.3)
[2024-03-23 17:28] LABS: INR 1.02; PROTHROMBIN TIME 10.8 SECONDS (9.7-12.0)
[2024-03-23 17:29] LABS: PTT,PARTIAL THROMBOPLSTIN TIME 28.5 SECONDS (21.7-31.4)
[2024-03-23 17:36] LABS: LACTIC ACID 1.5 mmol/L (0.4-2.0)
[2024-03-23 17:42] LABS: A/G RATIO 1.2 (1-2); ALANINE AMINOTRANSFERASE,ALT 14 U/L (14-59); ALBUMIN 3.9 g/dl (3.4-5.0); ALKALINE PHOSPHATASE 81 U/L (46-116); ANION GAP 13.2 (5-15); ASPARTATE AMNIOTRANSFERASE,AST 10 U/L (15-37); BILIRUBIN TOTAL 0.6 mg/dL (0.2-1.0); BLOOD UREA NITROGEN,BUN 8 mg/dL (7-18); BUN/CREATININE RATIO 8.9 (14-18); CALCIUM 9.2 mg/dL (8.5-10.1); CARBON DIOXIDE,CO2 28 mEq/L (21-32); CHLORIDE,CL 100 mEq/L (98-107); CREATININE 0.9 mg/dL (0.55-1.02); EST CRCL DRUG DOSING (CG) 57.17 mL/min; ESTIMATED GFR 76 mL/min (>60); GLUCOSE RANDOM 96 mg/dL (70-99); MAGNESIUM 1.2 mg/dL (1.8-2.4); PHOSPHORUS 3.7 mg/dL (2.6-4.7); POTASSIUM,K 3.2 mEq/L (3.5-5.1); PROTEIN TOTAL,TP 7.2 g/dl (6.4-8.2); SODIUM,NA 138 mEq/L (136-145)
[2024-03-23 17:51] LABS: C-REACTIVE PROTEIN < 0.05 mg/dL (<0.30)
[2024-03-23 19:06] LABS: CORONAVIRUS COVID-19 NAA NEGATIVE (NEGATIVE); INFLUENZA A NAA NEGATIVE (NEGATIVE); RESPIRATORY SYNCYTIAL VIR NAA NEGATIVE (NEGATIVE)
[2024-03-23 19:26] LABS: APPEARANCE,URINE CLEAR (Clear); BILIRUBIN,URINE NEGATIVE (Negative); COLOR,URINE YELLOW (Yellow); GLUCOSE,URINE NEGATIVE (Negative); KETONES,URINE NEGATIVE (Negative); LEUKOCYTE ESTERASE,URINE NEGATIVE (Negative); NITRITE,URINE NEGATIVE (Negative); OCCULT BLOOD,URINE NEGATIVE (Negative); PH,URINE 6.5 (5.0-8.0); PROTEIN,URINE NEGATIVE (Negative); UROBILINOGEN,URINE 0.2 (0.2-1.0)
[2024-03-23 19:38] LABS: BARBITURATE SCREEN,URINE NEGATIVE (CUTOFF=200); BENZODIAZEPINES SCREEN,URINE PRESUMPTIVE POSITIVE (CUTOFF=150); BUPRENORPHINE SCREEN,URINE NEGATIVE (CUTOFF=10); METHADONE SCREEN, URINE NEGATIVE (CUTOFF=200); METHAMPHETAMINES SCREEN, URINE NEGATIVE (CUTOFF=500); OXYCODONE SCREEN,URINE PRESUMPTIVE POSITIVE (CUT0FF=100); THC SCREEN,URINE 20 NG/ML NEGATIVE (CUTOFF=50)
[2024-03-23 19:39] LABS: AMPHETAMINES SCREEN, URINE PRESUMPTIVE POSITIVE (CUTOFF=500)
[2024-03-23] MEDS: Magnesium Oxide 400 MG Tab PO STA (20:38)
[2024-03-23] MEDS: predniSONE 10 MG Tab PO ONE (20:38)
[2024-03-23 21:07] VITALS: BP 124/62; PULSE 91
== END 2024-03-23 21:06 | disposition home or self-care (01) ==
LOC: JD.ED 15:32
DX: T78.40XA Allergy, unspecified, initial encounter (principal); E83.42 Hypomagnesemia; I10 Essential (primary) hypertension; K21.9 Gastro-esophageal reflux disease without esophagitis; E66.9 Obesity, unspecified; Z79.899 Other long term (current) drug therapy; Z79.84 Long term (current) use of oral hypoglycemic drugs; Z91.040 Latex allergy status; Z88.8 Allergy status to other drugs, medicaments and biological substances; Z68.27 Body mass index [BMI] 27.0-27.9, adult
CPT/HCPCS: 0241U; 36415; 71045; 80053; 80306; 80307; 81003; 83605; 83735; 84100; 85025; 85610; 85730; 86140; 99285; A9270; J7512

== ENCOUNTER 2025-07-10 18:39 | Emergency (ER) | payer MEDICAID ==
[2025-07-10 18:53] VITALS: PULSE 79
[2025-07-10] MEDS ORDERED: Sodium Chloride 0.9% 10 ML Syringe FLUSH PRN (19:07)
[2025-07-10] MEDS: Ondansetron 4 MG/2 ML SDV IVPUSH ONE (19:40)
[2025-07-10] MEDS: Potassium Chloride 20 MEQ Tab.ER PO ONE (19:40)
[2025-07-10 22:33] VITALS: BP 106/74
== END 2025-07-10 21:25 | disposition home or self-care (01) ==
LOC: JD.ED 18:39
DX: E87.6 Hypokalemia (principal); I10 Essential (primary) hypertension; E66.9 Obesity, unspecified; K21.9 Gastro-esophageal reflux disease without esophagitis; Z79.899 Other long term (current) drug therapy; Z88.8 Allergy status to other drugs, medicaments and biological substances; Z91.040 Latex allergy status; Z90.49 Acquired absence of other specified parts of digestive tract; Z90.710 Acquired absence of both cervix and uterus; Z68.25 Body mass index [BMI] 25.0-25.9, adult
CPT/HCPCS: 93005; 96361; 96365; 96375; 99284; A9270; J2405; J3480; J7030; 99283